=== PATIENT | male | born 1950 | race African-American/Black ===

== ENCOUNTER → 2017-03-25 | Day surgery (SDC) | payer OTHER, BC ==
[~2017-03-25] MED LIST: PICC LINE 8 ML FLUSH PROTOCOL IVPUSH PRN
== END | disposition home or self-care (01) ==
LOC: JRADIR 10:19
PROVIDERS: ATTEND Surgery Vascular Surgery
PROC: 02HV33Z Insertion of Infusion Device into Superior Vena Cava, Percutaneous Approach (ICD-10-PCS; principal; 2017-03-25)
PROC: B518ZZA Fluoroscopy of Superior Vena Cava, Guidance (ICD-10-PCS; 2017-03-25)
DX: M86.9 Osteomyelitis, unspecified (principal)
CPT/HCPCS: 36569; 77001-TC; C1751

== ENCOUNTER 2018-02-09 19:49 | Inpatient (IN) | payer OTHER, BC ==
--- NOTE | 2018-02-09 20:23 | PDOC ---
Rapid Medical Evaluation Time Seen by Provider: 02/09/18 20:18 Medical Evaluation: Allergies Allergy/AdvReac Type Severity Reaction Status Date / Time No Known Drug Allergies Allergy Verified 12/12/16 17:04 I have performed a brief in-person evaluation of this patient. The patient presents with a chief complaint of: doesn't remember falling but was very disoriented and has a bruise on the top of his head and his right shoulder hurts. Pt states this has happened before when he has been "exhausted ". disorientation/fall happened around 1pm (7 hours ago). admits he was running out of insulin so he has been "stretching it out". Pertinent physical exam findings: abrasion to top of scalp. no facial drooping. No slurred speech. Patient is sluggish to respond and to walk I have ordered the following: labs, Head Ct, UA/culture, EKG, CXR The patient will proceed to the ED for further evaluation.
[2018-02-09 20:24] VITALS: BMI 27.3
[2018-02-09 20:52] LABS: BASO % 0.8 % (0-2.0); EOS % 0.6 % (0-4.5); HEMATOCRIT 38.8 % (35.4-49); LYMPH % 14.6 % (8-40); MCH 29.3 pg (25.7-33.7); MCHC 33.4 g/dl (32.0-35.9); MEAN CELL VOLUME 87.7 fl (80-96); MEAN PLT VOLUME 8.4 fl (7.5-11.1); MONO % 7.8 % (3.8-10.2); NEUT % 76.2 % (42.8-82.8); PLATELET COUNT 274 K/MM3 (134-434); RBC 4.42 M/mm3 (4.00-5.60); RDW 13.4 % (11.9-15.9); WHITE BLOOD COUNT 4.6 K/mm3 (4.0-10.0)
[2018-02-09 21:25] LABS: ALBUMIN 3.6 g/dl (3.4-5.0); ANION GAP 6 (8-16); BILIRUBIN,TOTAL 0.8 mg/dL (0.2-1.0); BLOOD UREA NITROGEN 35 mg/dL (7-18); CALCIUM 8.9 mg/dL (8.5-10.1); CHLORIDE 96 mmol/L (98-107); CO2 30 mmol/L (21-32); CREATININE 1.3 mg/dL (0.7-1.3); GLUCOSE,RANDOM 157 mg/dL (74-106); POTASSIUM 4.2 mmol/L (3.5-5.1); SGOT/AST 49 U/L (15-37); SGPT/ALT 31 U/L (12-78); SODIUM 132 mmol/L (136-145); TOT PROT 7.1 g/dl (6.4-8.2)
[2018-02-09 21:39] LABS: ALK PHOS 92 U/L (45-117)
[2018-02-09 22:07] LABS: URINE APPEARANCE CLEAR; URINE BILIRUBIN NEGATIVE (<2.0 mg/dL); URINE BLOOD NEGATIVE (NEGATIVE); URINE COLOR YELLOW; URINE GLUCOSE (UA) 1+ (NEGATIVE); URINE KETONE TRACE (NEGATIVE); URINE LEUK ESTERASE NEGATIVE (NEGATIVE); URINE NITRITE NEGATIVE (NEGATIVE); URINE UROBILINOGEN NEGATIVE mg/dL (0.2-1.0)
[2018-02-09 22:08] LABS: URINE PROTEIN 1+ (NEGATIVE)
[2018-02-09 22:09] LABS: EPI CELLS RARE /HPF (FEW); URINE HYALINE CAST 1 /lpf; URINE MUCUS RARE
--- NOTE | 2018-02-09 22:51 | PDOC ---
History of Present Illness - General History Source: Patient <Tuan Valencia - Last Filed: 02/09/18 22:55> - General History Source: Patient Exam Limitations: No Limitations - History of Present Illness Initial Comments: 02/09/18 23:06 The patient is a 67-year-old male, with a significant past medical history of diabetes and hypertension, who presents to the ED with s/p syncopal episode. Patient believes that he has not eaten well and has not had enough fluids today. The patient states that he consequently just fainted. He denies any chest pain, headache, or shortness of breath prior to the incident. On exam, the patient complains of pain to the top of his head, pain to the top of his right shoulder, and pain to the palmar aspect of his right hand. The patient denies any fever, chills, nausea, vomiting, diarrhea, or abdominal pain. PCP: Dr. Laura Page <Leonora Kerr - Last Filed: 02/09/18 23:58> - General Chief Complaint: Syncope/Near Syncope Stated Complaint: HEAD INJURY Time Seen by Provider: 02/09/18 20:18 Past History - Past Medical History Cardiac Disorders: Yes (IRREGULAR HEARTBEAT) COPD: No Diabetes: Yes (IDDM (INSULIN PUMP)) HTN: Yes Hypercholesterolemia: Yes - Surgical History Cardiac Surgery: Yes (?ABLATION 2003) - Immunization History Immunization Up to Date: No - Suicide/Smoking/Psychosocial Hx Smoking History: Unknown if ever smoked Have you smoked in the past 12 months: No Hx Alcohol Use: Yes (VERY LITTLE) Drug/Substance Use Hx: No Substance Use Type: Alcohol <Tuan Valencia - Last Filed: 02/09/18 22:55> <Leonora Kerr - Last Filed: 02/09/18 23:58> - Past Medical History Allergies/Adverse Reactions: Allergies Allergy/AdvReac Type Severity Reaction Status Date / Time No Known Drug Allergies Allergy Verified 02/09/18 20:22 Home Medications: Ambulatory Orders Aspirin [ASA -] 325 mg PO DAILY 12/11/14 Benazepril/Hydrochlorothiazide [Benazepril-Hctz 20-12.5 mg Tab] 1 each PO DAILY 12/11/14 Gabapentin 300 mg PO DAILY 12/11/14 Labetalol HCl [Normodyne -] 200 mg PO DAILY 12/11/14 Testosterone [Androgel] 1.25 gm TD DAILY 12/11/14 Cholecalciferol (Vitamin D3) [Vitamin D] 50,000 unit PO ASDIR 07/10/16 Insulin Glulisine [Apidra] 0 unit SQ DAILY 07/10/16 Liraglutide [Victoza -] 1.2 mg SQ ASDIR 07/10/16 Review of Systems - Review of Systems Able to Perform ROS?: Yes Comments:: 02/09/18 23:09 CONSTITUTIONAL: Absent: fever, chills, diaphoresis, generalized weakness, malaise, loss of appetite HEENT: Absent: rhinorrhea, nasal congestion, throat pain, throat swelling, difficulty swallowing, mouth swelling, ear pain, eye pain, visual Changes CARDIOVASCULAR: Present: syncope Absent: chest pain, palpitations, irregular heart rate, lightheadedness, peripheral edema RESPIRATORY: Absent: cough, shortness of breath, dyspnea with exertion, orthopnea, wheezing, stridor, hemoptysis GASTROINTESTINAL: Absent: abdominal pain, abdominal distension, nausea, vomiting, diarrhea, constipation, melena, hematochezia GENITOURINARY: Absent: dysuria, frequency, urgency, hesitancy, hematuria, flank pain, genital pain MUSCULOSKELETAL: Present: pain to the top of his head, pain to the top of his right shoulder, and pain to the palmar aspect of his right hand. Absent: arthralgia, joint swelling SKIN: Absent: rash, itching, pallor HEMATOLOGIC/IMMUNOLOGIC: Absent: easy bleeding, easy bruising, lymphadenopathy, frequent infections ENDOCRINE: Absent: unexplained weight gain, unexplained weight loss, heat intolerance, cold intolerance NEUROLOGIC: Absent: headache, focal weakness or paresthesias, dizziness, unsteady gait, seizure, mental status changes, bladder or bowel incontinence PSYCHIATRIC: Absent: anxiety, depression, suicidal or homicidal ideation, hallucinations. <Leonora Kerr - Last Filed: 02/09/18 23:58> *Physical Exam - Vital Signs Last Vital Signs Temp Pulse Resp BP Pulse Ox 98.1 F 55 L 16 153/87 100 02/09/18 20:23 02/09/18 20:23 02/09/18 20:23 02/09/18 20:23 02/09/18 20:23 <Tuan Valencia - Last Filed: 02/09/18 22:55> - Vital Signs Last Vital Signs Temp Pulse Resp BP Pulse Ox 98.1 F 55 L 16 153/87 100 02/09/18 20:23 02/09/18 20:23 02/09/18 20:23 02/09/18 20:23 02/09/18 20:23 - Physical Exam Comments: 02/09/18 23:11 GENERAL: Well developed, well nourished. Awake and alert. No acute distress. HEENT: PERRLA, EOMI. No conjunctival pallor. Sclera are non-icteric. Moist mucous membranes. Oropharynx is clear. NECK: Supple. Full ROM. No JVD. Carotid pulses 2+ and symmetric, without bruits. No thyromegaly. No lymphadenopathy. CARDIOVASCULAR: Regular rate and rhythm. No murmurs, rubs, or gallops. Distal pulses are 2+ and symmetric. PULMONARY: No evidence of respiratory distress. Lungs clear to auscultation bilaterally. No wheezing, rales or rhonchi. ABDOMINAL: Soft. Non-tender. Non-distended. No rebound or guarding. No organomegaly. Normoactive bowel sounds. MUSCULOSKELETAL (+)Tenderness to the acromioclavicular joint region of the right shoulder. No CVA tenderness. EXTREMITIES: No cyanosis. No clubbing. No edema. No calf tenderness. SKIN: (+)Abrasion to top of his head, Abrasion to the palmar aspect of the right hand , just above the mcp joint of the 4th and 5th digits. Warm and dry. Normal capillary refill. No jaundice. NEUROLOGICAL: Alert, awake, appropriate. PSYCHIATRIC: Cooperative. Good eye contact. Appropriate mood and affect. <Leonora Kerr - Last Filed: 02/09/18 23:58> ED Treatment Course - LABORATORY CBC & Chemistry Diagram: 02/09/18 20:42 02/09/18 20:42 - ADDITIONAL ORDERS Additional order review: Laboratory Results 02/09/18 02/09/18 22:02 20:42 Sodium 132 L Potassium 4.2 Chloride 96 L Carbon Dioxide 30 Anion Gap 6 L BUN 35 H Creatinine 1.3 Creat Clearance w eGFR 55.40 Random Glucose 157 H Calcium 8.9 Total Bilirubin 0.8 AST 49 H D ALT 31 D Alkaline Phosphatase 92 Creatine Kinase 1200 H Troponin I < 0.02 Total Protein 7.1 Albumin 3.6 Urine Color Yellow Urine Appearance Clear Urine pH 5.0 Ur Specific [place] 1.018 Urine Protein 1+ H Urine Glucose (UA) 1+ H Urine Ketones Trace H Urine Blood Negative Urine Nitrite Negative Urine Bilirubin Negative Urine Urobilinogen Negative Ur Leukocyte Esterase Negative Urine WBC (Auto) 1 Urine RBC (Auto) <1 Ur Epithelial Cells Rare Hyaline Casts 1 Urine Mucus Rare 02/09/18 20:42 RBC 4.42 MCV 87.7 MCHC 33.4 RDW 13.4 MPV 8.4 Neutrophils % 76.2 D Lymphocytes % 14.6 D Monocytes % 7.8 Eosinophils % 0.6 D Basophils % 0.8 - RADIOLOGY Radiology Studies Ordered: Category Date Time Status SHOULDER-RIGHT [RAD] Stat Radiology 02/09/18 22:16 Taken <Tuan Valencia - Last Filed: 02/09/18 22:55> - LABORATORY CBC & Chemistry Diagram: 02/09/18 20:42 02/09/18 20:42 - ADDITIONAL ORDERS Additional order review: Laboratory Results 02/09/18 02/09/18 22:02 20:42 Sodium 132 L Potassium 4.2 Chloride 96 L Carbon Dioxide 30 Anion Gap 6 L BUN 35 H Creatinine 1.3 Creat Clearance w eGFR 55.40 Random Glucose 157 H Calcium 8.9 Total Bilirubin 0.8 AST 49 H D ALT 31 D Alkaline Phosphatase 92 Creatine Kinase 1200 H Creatine Kinase Index 1.6 CK-MB (CK-2) 19.361 H Troponin I < 0.02 Total Protein 7.1 Albumin 3.6 Urine Color Yellow Urine Appearance Clear Urine pH 5.0 Ur Specific [place] 1.018 Urine Protein 1+ H Urine Glucose (UA) 1+ H Urine Ketones Trace H Urine Blood Negative Urine Nitrite Negative Urine Bilirubin Negative Urine Urobilinogen Negative Ur Leukocyte Esterase Negative Urine WBC (Auto) 1 Urine RBC (Auto) <1 Ur Epithelial Cells Rare Hyaline Casts 1 Urine Mucus Rare 02/09/18 20:42 RBC 4.42 MCV 87.7 MCHC 33.4 RDW 13.4 MPV 8.4 Neutrophils % 76.2 D Lymphocytes % 14.6 D Monocytes % 7.8 Eosinophils % 0.6 D Basophils % 0.8 - RADIOLOGY Radiology Studies Ordered: 02/09/18 23:[address] was reviewed by Dr. Valencia and over-read by Radiology. Impression: No definite interval change from 10/21/[address] No acute intracranial hemorrhage, mass effects, hydrocephalus or calvarial fracture. 02/09/18 23:57 Chest X-Ray and Right Shoulder X-Ray was reviewed by Dr. Valencia and over- read by Radiology. Impression: 1. No evidence of acute infiltrate, pleural effusion or pneumothorax. 2. No evidence of acute fracture or dislocation in the right shoulder. Right acromioclavicular and glenohumeral arthropathy. <Leonora Kerr - Last Filed: 02/09/18 23:58> *DC/Admit/Observation/Transfer - Discharge Dispostion Admit: Yes <Tuan Valencia - Last Filed: 02/09/18 22:55> - Attestations Scribe Attestion: 02/09/18 23:13 Documentation prepared by Leonora Kerr, acting as medical records clerk for Tuan Valencia MD. <Leonora Kerr - Last Filed: 02/09/18 23:58> Diagnosis at time of Disposition: Abrasions of multiple sites Syncope Qualifiers: Syncope type: unspecified Qualified Code(s): R55 - Syncope and collapse AC separation Qualifiers: Encounter type: initial encounter Laterality: right Qualified Code(s): S43.101A - Unspecified dislocation of right acromioclavicular joint, initial encounter - Discharge Dispostion Condition at time of disposition: Stable
[2018-02-09] MEDS ORDERED: TETANUS AND DIPHTHERIA TOXOID 0.5 ML DISP.SYRIN IM ONE (23:17)
[2018-02-09] MEDS: SODIUM CHLORIDE 1,000 ML IV SCH (23:30)
--- NOTE | 2018-02-10 04:44 | HP ---
CHIEF COMPLAINT: SYNCOPE PCP: Laura Suresh HISTORY OF PRESENT ILLNESS: This is a 67 year old male with a past medical history of irreg heart beat, DM, HTN, HLD, syncope who presented to the ED after apparant syncopal episode. Pt report that he has been running nonstop to take care of "things" for the past 2 days. He states that earlier today he woke up on the ground with an abrasion to the top of his head and right hand as well as right shoulder pain. He also reports that he has not been eating or drinking well for the past 2 days and has not taken his premeal insulin. Upon exam pt reports feeling much better. ER course was notable for: (1) Na 132 (2) (3) Recent Travel: pt denies PAST MEDICAL HISTORY: irreg heart beat s/p ablation 2003, DM, HTN, HLD, syncope PAST SURGICAL HISTORY: cardiac ablation 2003 Social History: Smoking: pt denies Alcohol: rarely Drugs: pt denies Family History: mother age 75, mult CVAs beginning age 65 father age 74, prostate CA one brother suffers effects of agent orange and has PTSD Allergies No Known Drug Allergies Allergy (Verified 02/09/18 20:22) HOME MEDICATIONS: 3 Medication Instructions Recorded Aspirin [ASA -] 325 mg PO DAILY 12/11/14 Benazepril/Hydrochlorothiazide 1 each PO DAILY 12/11/14 [Benazepril-Hctz 20-12.5 mg Tab] Gabapentin 300 mg PO DAILY 12/11/14 Labetalol HCl [Normodyne -] 200 mg PO DAILY 12/11/14 Testosterone [Androgel] 1.25 gm TD DAILY 12/11/14 Cholecalciferol (Vitamin D3) 50,000 unit PO ASDIR 07/10/16 [Vitamin D] Insulin Glulisine [Apidra] 0 unit SQ DAILY 07/10/16 Liraglutide [Victoza -] 1.2 mg SQ ASDIR 07/10/16 REVIEW OF SYSTEMS CONSTITUTIONAL: Absent: fever, chills, diaphoresis, generalized weakness, malaise, loss of appetite, weight change HEENT: Absent: rhinorrhea, nasal congestion, throat pain, throat swelling, difficulty swallowing, mouth swelling, ear pain, eye pain, visual changes CARDIOVASCULAR: Present: syncope Absent: chest pain, palpitations, irregular heart rate, lightheadedness, peripheral edema RESPIRATORY: Absent: cough, shortness of breath, dyspnea with exertion, orthopnea, wheezing, stridor, hemoptysis GASTROINTESTINAL: Absent: abdominal pain, abdominal distension, nausea, vomiting, diarrhea, constipation, melena, hematochezia GENITOURINARY: Absent: dysuria, frequency, urgency, hesitancy, hematuria, flank pain, genital pain MUSCULOSKELETAL: Absent: myalgia, arthralgia, joint swelling, back pain, neck pain SKIN: Absent: rash, itching, pallor HEMATOLOGIC/IMMUNOLOGIC: Absent: easy bleeding, easy bruising, lymphadenopathy, frequent infections ENDOCRINE: Absent: unexplained weight gain, unexplained weight loss, heat intolerance, cold intolerance NEUROLOGIC: Absent: headache, focal weakness or paresthesias, dizziness, unsteady gait, seizure, mental status changes, bladder or bowel incontinence PSYCHIATRIC: Absent: anxiety, depression, suicidal or homicidal ideation, hallucinations. PHYSICAL EXAMINATION Vital Signs - 24 hr 3 02/09/18 20:23 Temperature 98.1 F Pulse Rate 55 L Respiratory 16 Rate Blood Pressure 153/87 O2 Sat by Pulse 100 Oximetry (%) GENERAL: Awake, alert, and fully oriented, in no acute distress. HEAD: Normal with no signs of trauma. EYES: Pupils equal, round and reactive to light, extraocular movements intact, sclera anicteric, conjunctiva clear. No lid lag. EARS, NOSE, THROAT: Ears normal, nares patent, oropharynx clear without exudates. Moist mucous membranes. NECK: Normal range of motion, supple without lymphadenopathy, JVD, or masses. LUNGS: Breath sounds equal, clear to auscultation bilaterally. No wheezes, and no crackles. No accessory muscle use. HEART: Regular rate and rhythm, normal S1 and S2 without murmur, rub or gallop. ABDOMEN: Soft, nontender, not distended, normoactive bowel sounds, no guarding, no rebound, no masses. No hepatomegaly or splenomegaly. MUSCULOSKELETAL: Normal range of motion at all joints except right shoulder. No bony deformities or tenderness. No CVA tenderness. decreased ROM right shoulder due to pain, + tenderness on palpation AC joint UPPER EXTREMITIES: 2+ pulses, warm, well-perfused. No cyanosis. No clubbing. No peripheral edema. LOWER EXTREMITIES: 2+ pulses, warm, well-perfused. No calf tenderness. No peripheral edema. NEUROLOGICAL: Cranial nerves II-XII intact. Normal speech. Normal gait. PSYCHIATRIC: Cooperative. Good eye contact. Appropriate mood and affect. SKIN: Warm, dry, normal turgor, no rashes or lesions noted, normal capillary refill. abrasion to top of head, left hand Laboratory Results - last 24 hr 3 02/09/18 02/09/18 02/09/18 20:42 20:42 22:02 WBC 4.6 RBC 4.42 Hgb 13.0 Hct 38.8 MCV 87.7 MCH 29.3 MCHC 33.4 RDW 13.4 Plt Count 274 MPV 8.4 Neutrophils % 76.2 D Lymphocytes % 14.6 D Monocytes % 7.8 Eosinophils % 0.6 D Basophils % 0.8 Sodium 132 L Potassium 4.2 Chloride 96 L Carbon Dioxide 30 Anion Gap 6 L BUN 35 H Creatinine 1.3 Creat Clearance w eGFR 55.40 Random Glucose 157 H Calcium 8.9 Total Bilirubin 0.8 AST 49 H D ALT 31 D Alkaline Phosphatase 92 Creatine Kinase 1200 H Creatine Kinase Index 1.6 CK-MB (CK-2) 19.361 H Troponin I < 0.02 Total Protein 7.1 Albumin 3.6 Urine Color Yellow Urine Appearance Clear Urine pH 5.0 Ur Specific [place] 1.018 Urine Protein 1+ H Urine Glucose (UA) 1+ H Urine Ketones Trace H Urine Blood Negative Urine Nitrite Negative Urine Bilirubin Negative Urine Urobilinogen Negative Ur Leukocyte Esterase Negative Urine WBC (Auto) 1 Urine RBC (Auto) <1 Ur Epithelial Cells Rare Hyaline Casts 1 Urine Mucus Rare ECG sinus rhythm vs possible ectopic atrial rhythm vent rate 75, QTC 451 P wave inverted NO acute ST/T wave changes Radiology Reports Shoulder, Right; Chest, portable Impression: 1. No evidence of acute infiltrate, pleural effusion or pneumothorax. 2. No evidence of acute fracture or dislocation in the right shoulder. Right acromioclavicular and glenohumeral arthropathy. Reported By: Herbie Harris DO 02/09/[address] head Impression: No definite interval change from 10/21/[address] No acute intracranial hemorrhage, mass effects , hydrocephalus or calvarial fracture. Reported By: Herbie Harris DO 02/09/18 3266 ASSESSMENT/PLAN: 67yM with PMH irreg heart beat s/p ablation 2004, DM, HTN, HLD, syncope presented to the ED s/p apparent syncope. Syncope - trend troponin r/o cardiac ischemia - monitor on tele - CT head without changes hyponatremia - likely due to HCTZ, will hold same - repeat BMP in am HTN/HLD - cont home medications except HCTZ DM with neuropathy - cont insulin pump basal rate - pt receives 6u apidra with meals and then sliding scale on top; same ordered. - BGM AC/HS - pt states he ran out of his victoza and gabapentin. Will restart victoza at 0.6mg daily x 1 week then titrate up to 1.2mg DVT PPX - heparin deferred as anticipated LOS <48h. reassess if stays longer - encourage ambulation FEN - NS @ 100cc/hr - BMP in am - diabetic diet as tolerated. Dispo: Pt admitted to tele obs. Visit type - Emergency Visit Emergency Visit: Yes ED Registration Date: 02/09/18 Care time: The patient presented to the Emergency Department on the above date and was hospitalized for further evaluation of their emergent condition. - New Patient This patient is new to me today: Yes Date on this admission: 02/10/18 - Critical Care Critical Care patient: No Hospitalist Screening - Colonoscopy Questionnaire Colonoscopy Questionnaire: Colonoscopy Questionnaire - Patient: 50 - 75 years old and never had a screening colonoscopy: Unknown History of colon or rectal polyps, or CA: No History of IBD, Crohn's disease or UC: No History of abdominal radiation therapy as a child: No - Relative: 1 with colon or rectal CA, or polyps at age 60 or younger: No Colon or rectal CA diagnosed at age 45 or younger: No Multiple relatives with colon or rectal CA: No - Outcome: Screening Result: Negative Screen
[2018-02-10] MEDS ORDERED: INSULIN SLIDING SCALE (NOVOLOG) 1 VIAL SQ SCH (07:00)
[2018-02-10] MEDS ORDERED: GABAPENTIN 300 MG CAPSULE (FP) PO SCH (10:00)
[2018-02-10] MEDS ORDERED: HYDROCHLOROTHIAZIDE 12.5 MG CAPSULE (FP) PO SCH (10:00)
[2018-02-10] MEDS ORDERED: LIRAGLUTIDE 0.6 MG/0.1 ML PEN.INJCTR SQ SCH (10:00)
[2018-02-10 10:25] LABS: BASO % 0.5 % (0-2.0); EOS % 0.8 % (0-4.5); HEMATOCRIT 37.9 % (35.4-49); HEMOGLOBIN 12.6 GM/dL (11.7-16.9); LYMPH % 12.8 % (8-40); MCH 29.1 pg (25.7-33.7); MCHC 33.2 g/dl (32.0-35.9); MEAN CELL VOLUME 87.5 fl (80-96); MEAN PLT VOLUME 8.4 fl (7.5-11.1); MONO % 17.2 % (3.8-10.2); NEUT % 68.7 % (42.8-82.8); PLATELET COUNT 290 K/MM3 (134-434); RBC 4.33 M/mm3 (4.00-5.60); RDW 13.4 % (11.9-15.9); WHITE BLOOD COUNT 6.3 K/mm3 (4.0-10.0)
[2018-02-10] MEDS: LIRAGLUTIDE 0.6 MG/0.1 ML PEN.INJCTR SQ SCH (10:37)
[2018-02-10] MEDS: LABETALOL HCL 200 MG TABLET (FP) PO SCH (10:52)
[2018-02-10] MEDS: ASPIRIN 325 MG TABLET PO SCH (10:52)
[2018-02-10] MEDS: LISINOPRIL 20 MG TABLET (FP) PO SCH (10:52)
[2018-02-10] MEDS: INSULIN SLIDING SCALE (NOVOLOG) 1 VIAL SQ SCH ×4 (11:02→22:58)
[2018-02-10] MEDS: INSULIN (NOVOLOG) ASPART 100 UNITS/ML 10ML VIAL SQ SCH ×3 (11:02→18:43)
--- NOTE | 2018-02-10 11:20 | EKG ---
Test Reason : Blood Pressure : / mmHG Vent. Rate : 075 BPM Atrial Rate : 075 BPM P-R Int : 248 ms QRS Dur : 096 ms QT Int : 404 ms P-R-T Axes : 264 001 037 degrees QTc Int : 451 ms UNUSUAL P AXIS, POSSIBLE ECTOPIC ATRIAL RHYTHM CANNOT RULE OUT ANTERIOR INFARCT , AGE UNDETERMINED ABNORMAL ECG WHEN COMPARED WITH ECG OF 02-NOV-2016 06:04, NO SIGNIFICANT CHANGE WAS FOUND Confirmed by JAMES BUSH, LUZMARIA ([id number]) on 02/10/2018 11:20:27 AM Referred By: EMILY Confirmed By:LUZMARIA RAMIREZ MD
[2018-02-10 11:47] LABS: ANION GAP 12 (8-16); BLOOD UREA NITROGEN 32 mg/dL (7-18); CHLORIDE 101 mmol/L (98-107); CO2 24 mmol/L (21-32); CREATININE 1.2 mg/dL (0.7-1.3); GLUCOSE,RANDOM 192 mg/dL (74-106); MAGNESIUM 2.4 mg/dL (1.8-2.4); PHOSPHOROUS 3.3 mg/dL (2.5-4.9); POTASSIUM 4.2 mmol/L (3.5-5.1); SODIUM 137 mmol/L (136-145)
--- NOTE | 2018-02-10 12:09 | CON.CARD ---
Cardiology Consult (text) - Consultation Consultation Note: cc: syncope hpi: 67 m hx dm, htn, here with syncope. Pt is poor historian, confused with many details. Past few days pt has been eating and drinking less and not sleeping much. Then yesterday he awoke sitting in his chair with a bruise on his arm and head. Does not remember any details around event. No cp, sob, palps, dizzy, loc, pnd, orthopnea, le edema. Feeling well now. Pt reports having what sounds like cardiac cath in early , says no interventions were needed. pmh: per hpi psh: insulin pump social: no tob fam: no premature cad, scd ros: per hpi; no nvd, cough, nasal congestion, [place], vision changes, gib, hematuria, dysuria meds: Home Medications Medication Instructions Recorded Aspirin [ASA -] 325 mg PO DAILY 12/11/14 Benazepril/Hydrochlorothiazide 1 each PO DAILY 12/11/14 [Benazepril-Hctz 20-12.5 mg Tab] Gabapentin 300 mg PO DAILY 12/11/14 Labetalol HCl [Normodyne -] 200 mg PO DAILY 12/11/14 Testosterone [Androgel] 1.25 gm TD DAILY 12/11/14 Cholecalciferol (Vitamin D3) 50,000 unit PO ASDIR 07/10/16 [Vitamin D] Insulin Glulisine [Apidra] 0 unit SQ DAILY 07/10/16 Liraglutide [Victoza -] 1.2 mg SQ ASDIR 07/10/16 pe: Vital Signs Period Temp Pulse Resp BP Sys/Duron Pulse Ox Last 24 Hr 98.1 F 55-95 16-18 128-153/74-87 97-100 nad no jvd rrr s1s2 no mrg cta bl nl eff aaox3 no le e/e/c abd nt nd pos bs no jaundice diaphoreis pos dp pt no carotid bruits Laboratory Last Values WBC 6.3 K/mm3 (4.0-10.0) D 02/10/18 10:05 RBC 4.33 M/mm3 (4.00-5.60) 02/10/18 10:05 Hgb 12.6 GM/dL (11.7-16.9) 02/10/18 10:05 Hct 37.9 % (35.4-49) 02/10/18 10:05 MCV 87.5 fl (80-96) 02/10/18 10:05 MCH 29.1 pg (25.7-33.7) 02/10/18 10:05 MCHC 33.2 g/dl (32.0-35.9) 02/10/18 10:05 RDW 13.4 % (11.9-15.9) 02/10/18 10:05 Plt Count 290 K/MM3 (134-434) 02/10/18 10:05 MPV 8.4 fl (7.5-11.1) 02/10/18 10:05 Neutrophils % 68.7 % (42.8-82.8) 02/10/18 10:05 Lymphocytes % 12.8 % (8-40) 02/10/18 10:05 Monocytes % 17.2 % (3.8-10.2) H D 02/10/18 10:05 Eosinophils % 0.8 % (0-4.5) 02/10/18 10:05 Basophils % 0.5 % (0-2.0) 02/10/18 10:05 Sodium 137 mmol/L (136-145) 02/10/18 10:05 Potassium 4.2 mmol/L (3.5-5.1) 02/10/18 10:05 Chloride 101 mmol/L (98-107) 02/10/18 10:05 Carbon Dioxide 24 mmol/L (21-32) 02/10/18 10:05 Anion Gap 12 (8-16) 02/10/18 10:05 BUN 32 mg/dL (7-18) H 02/10/18 10:05 Creatinine 1.2 mg/dL (0.7-1.3) 02/10/18 10:05 Creat Clearance w eGFR 55.40 (>60) 02/09/18 20:42 Random Glucose 192 mg/dL (74-106) H D 02/10/18 10:05 Calcium 9.0 mg/dL (8.5-10.1) 02/10/18 10:05 Phosphorus 3.3 mg/dL (2.5-4.9) D 02/10/18 10:05 Magnesium 2.4 mg/dL (1.8-2.4) D 02/10/18 10:05 Total Bilirubin 0.8 mg/dL (0.2-1.0) 02/09/18 20:42 AST 49 U/L (15-37) H D 02/09/18 20:42 ALT 31 U/L (12-78) D 02/09/18 20:42 Alkaline Phosphatase 92 U/L (45-117) 02/09/18 20:42 Creatine Kinase 1184 IU/L (39-308) H 02/10/18 03:15 Creatine Kinase Index 1.6 % (0.0-5.0) 02/09/18 20:42 CK-MB (CK-2) 19.361 ng/mL (0.5-3.6) H 02/09/18 20:42 Troponin I < 0.02 ng/ml (0.00-0.05) 02/10/18 03:15 Total Protein 7.1 g/dl (6.4-8.2) 02/09/18 20:42 Albumin 3.6 g/dl (3.4-5.0) 02/09/18 20:42 Urine Color Yellow 02/09/18 22:02 Urine Appearance Clear 02/09/18 22:02 Urine pH 5.0 (5.0-8.0) 02/09/18 22:02 Ur Specific [place] 1.018 (1.001-1.035) 02/09/18 22:02 Urine Protein 1+ (NEGATIVE) H 02/09/18 22:02 Urine Glucose (UA) 1+ (NEGATIVE) H 02/09/18 22:02 Urine Ketones Trace (NEGATIVE) H 02/09/18 22:02 Urine Blood Negative (NEGATIVE) 02/09/18 22:02 Urine Nitrite Negative (NEGATIVE) 02/09/18 22:02 Urine Bilirubin Negative (<2.0 mg/dL) 02/09/18 22:02 Urine Urobilinogen Negative mg/dL (0.2-1.0) 02/09/18 22:02 Ur Leukocyte Esterase Negative (NEGATIVE) 02/09/18 22:02 Urine WBC (Auto) 1 /hpf (3-5) 02/09/18 22:02 Urine RBC (Auto) <1 /hpf (0-3) 02/09/18 22:02 Ur Epithelial Cells Rare /HPF (FEW) 02/09/18 22:02 Hyaline Casts 1 /lpf 02/09/18 22:02 Urine Mucus Rare 02/09/18 22:02 cxr: clear lungs ecg: sr vs ectopic atrial pacemaker, nl intervals, no ischemic changes, no sig change 2015 echo 07/2012: nl lv/rv, no sig valve path a/p: 67 m hx dm, htn, here with syncope. syncope: -pt has poor recollection of event -possibly related to poor po intake and lack of sleep -check echo, tele -no signs acs htn: -stable, cont home meds rhabdo/praveen: -cont ivfs
[2018-02-10] MEDS ORDERED: HEMOQUE TEST 1 EACH EACH ONE (13:12)
[2018-02-10] MEDS: GABAPENTIN 300 MG CAPSULE (FP) PO SCH (23:19)
[2018-02-10] MEDS: SODIUM CHLORIDE 1,000 ML IV SCH (23:19)
[2018-02-11] MEDS: INSULIN SLIDING SCALE (NOVOLOG) 1 VIAL SQ SCH ×4 (06:15→23:10)
[2018-02-11] MEDS: INSULIN (NOVOLOG) ASPART 100 UNITS/ML 10ML VIAL SQ SCH ×3 (06:15→18:10)
[2018-02-11 06:44] LABS: ANION GAP 5 (8-16); BLOOD UREA NITROGEN 31 mg/dL (7-18); CALCIUM 8.5 mg/dL (8.5-10.1); CHLORIDE 106 mmol/L (98-107); CO2 29 mmol/L (21-32); GLUCOSE,RANDOM 56 mg/dL (74-106); POTASSIUM 3.8 mmol/L (3.5-5.1); SODIUM 140 mmol/L (136-145)
[2018-02-11 07:00] LABS: CREATININE 1.5 mg/dL (0.7-1.3)
[2018-02-11] MEDS ORDERED: PT OWN MED DRAWER 7, Y5N ONE (09:51)
[2018-02-11] MEDS: LISINOPRIL 20 MG TABLET (FP) PO SCH (10:08)
[2018-02-11] MEDS: LABETALOL HCL 200 MG TABLET (FP) PO SCH (10:09)
[2018-02-11] MEDS: ASPIRIN 325 MG TABLET PO SCH (10:09)
[2018-02-11] MEDS: LIRAGLUTIDE 0.6 MG/0.1 ML PEN.INJCTR SQ SCH (10:10)
[2018-02-11] MEDS: SODIUM CHLORIDE 1,000 ML IV SCH (10:12)
--- NOTE | 2018-02-11 10:42 | PN ---
Progress Note (short form) - Note Progress Note: s: no cp sob palps dizzy o: Vital Signs Period Temp Pulse Resp BP Sys/Duron Pulse Ox Last 24 Hr 97.8 F-98.4 F 72-89 16-20 96-135/54-76 98-99 nad no jvd rrr s1s2 no mrg cta bl nl eff aaox3 no le e/e/c abd nt nd pos bs no jaundice diaphoreis Current Medications Generic Name Dose Route Start Last Admin Trade Name Ramiro PRN Reason Stop Dose Admin Aspirin 325 mg 02/10/18 10:00 02/11/18 10:09 Asa - PO 325 mg DAILY RAMIN Administration Gabapentin 300 mg 02/10/18 22:00 02/10/18 23:19 Neurontin - PO 300 mg HS RAMIN Administration Sodium Chloride 1,000 mls @ 125 mls/hr 02/11/18 10:01 02/11/18 10:12 Normal Saline - IV 125 mls/hr ASDIR RAMIN Administration Insulin Aspart 1 vial 02/10/18 22:00 02/10/18 22:58 Novolog Vial Sliding Scale - SQ Not Given HS [facility] Protocol Insulin Aspart 6 units 02/10/18 07:00 02/11/18 06:15 Novolog Vial SQ Not Given TIDAC RAMIN Insulin Aspart 1 vial 02/10/18 07:00 02/11/18 06:15 Novolog Vial Sliding Scale - SQ Not Given TIDAC RAMIN Protocol Labetalol HCl 200 mg 02/10/18 10:00 02/11/18 10:09 Normodyne - PO 200 mg DAILY RAMIN Administration Liraglutide 0.6 mg 02/10/18 10:00 02/11/18 10:10 Victoza - SQ 0.6 mg DAILY RAMIN Administration Lisinopril 20 mg 02/10/18 10:00 02/11/18 10:08 Prinivil PO 20 mg DAILY RAMIN Administration CBC, BMP 02/10/18 10:05 02/11/18 05:10 cxr: clear lungs ecg: sr vs ectopic atrial pacemaker, nl intervals, no ischemic changes, no sig change 2016 echo 07/2012: nl lv/rv, no sig valve path Kamilla stress MPI 09/2013: no ischemia Kamilla stress MPI 07/2015: nl mpi, nl lvef echo 01/2018: nl lv, rv tds, no sig valve path, nl rvsp Echo 07/2015: normal LV/RV function, no sig valv abn Echo 02/2013: normal LV/RV function, no sig valv abn Echo 12/2008 ([place]): normal LV/RV function, no sig valv abn tele: sr Carotid Doppler 03/2013: no sig stenosis Carotid Doppler 07/2015: mild dz, no sig stenosis Cath 04/2004: normal cors, mildly reduced LVF EPS 04/2004: normal, no inducible VT holter 08/2015: benign study a/p: 67 m hx dm, htn, here with syncope. syncope: -pt has poor recollection of event -possibly related to poor po intake and lack of sleep -has hx of such events that was evaluated in past with EP study, cath, holter, echo that were unremarkable and sxs thought to be due to hypoglycemia. -check echo, tele -no signs acs htn: -stable, cont home meds rhabdo/praveen: -cont ivfs cardiac [place] stable, can dc tele
--- NOTE | 2018-02-11 13:03 | PN ---
Progress Note, Physician Chief Complaint: Events noted Appreciate Cardiology eval Telemetry uneventful No distress - Current Medication List Current Medications: Active Medications Aspirin (Asa -) 325 mg PO DAILY [facility] Last Admin: 02/11/18 10:09 Dose: 325 mg Gabapentin (Neurontin -) 300 mg PO HS [facility] Last Admin: 02/10/18 23:19 Dose: 300 mg Sodium Chloride (Normal Saline -) 1,000 mls @ 125 mls/hr IV ASDIR [facility] Last Admin: 02/11/18 10:12 Dose: 125 mls/hr Insulin Aspart (Novolog Vial Sliding Scale -) 1 vial SQ [facility] PRN Reason: Protocol Last Admin: 02/10/18 22:58 Dose: Not Given Insulin Aspart (Novolog Vial) 6 units SQ TIDAC [facility] Last Admin: 02/11/18 06:15 Dose: Not Given Insulin Aspart (Novolog Vial Sliding Scale -) 1 vial SQ TIDAC [facility] PRN Reason: Protocol Last Admin: 02/11/18 06:15 Dose: Not Given Labetalol HCl (Normodyne -) 200 mg PO DAILY [facility] Last Admin: 02/11/18 10:09 Dose: 200 mg Liraglutide (Victoza -) 0.6 mg SQ DAILY [facility] Last Admin: 02/11/18 10:10 Dose: 0.6 mg Lisinopril (Prinivil) 20 mg PO DAILY [facility] Last Admin: 02/11/18 10:08 Dose: 20 mg - Objective Vital Signs: Vital Signs Temperature 98.2 F 02/11/18 08:00 Pulse Rate 78 02/11/18 08:00 Respiratory Rate 20 02/11/18 08:00 Blood Pressure 157/96 02/11/18 08:00 O2 Sat by Pulse Oximetry (%) 99 02/10/18 21:22 Constitutional: Yes: No Distress Cardiovascular: Yes: Regular Rate and Rhythm Respiratory: Yes: CTA Bilaterally Gastrointestinal: Yes: Normal Bowel Sounds, Soft. No: Tenderness Edema: No Labs: CBC, BMP 02/10/18 10:05 02/11/18 05:10 Problem List - Problems (1) Rhabdomyolysis Code(s): M62.82 - RHABDOMYOLYSIS (2) Syncope Code(s): R55 - SYNCOPE AND COLLAPSE Qualifiers: Syncope type: unspecified Qualified Code(s): R55 - Syncope and collapse (3) Diabetes Code(s): E11.9 - TYPE 2 DIABETES MELLITUS WITHOUT COMPLICATIONS Assessment/Plan PLAN Increase rate of fluids pt has no muscle cramps or pain encourage po fluids continue with meds
[2018-02-11] MEDS: GABAPENTIN 300 MG CAPSULE (FP) PO SCH (21:10)
[2018-02-12] MEDS: INSULIN (NOVOLOG) ASPART 100 UNITS/ML 10ML VIAL SQ SCH ×3 (06:32→17:43)
[2018-02-12] MEDS: INSULIN SLIDING SCALE (NOVOLOG) 1 VIAL SQ SCH ×4 (06:32→21:33)
[2018-02-12 08:42] LABS: CHLORIDE 108 mmol/L (98-107); POTASSIUM 4.4 mmol/L (3.5-5.1); SODIUM 142 mmol/L (136-145)
[2018-02-12 09:12] LABS: ANION GAP 12 (8-16); BLOOD UREA NITROGEN 27 mg/dL (7-18); CALCIUM 8.1 mg/dL (8.5-10.1); CO2 22 mmol/L (21-32); GLUCOSE,RANDOM 158 mg/dL (74-106)
[2018-02-12] MEDS ORDERED: PT OWN MED DRAWER 7, Y5N ONE (10:16)
--- NOTE | 2018-02-12 10:53 | PN ---
Progress Note, Physician History of Present Illness: patient seen and examined. Chart reviewed Awake and comfortable patient subjectively feels better Drinking fluids denies chest pain Denies chest pain or shortness of breath or headache Feels less tired - Current Medication List Current Medications: Active Medications Aspirin (Asa -) 325 mg PO DAILY [facility] Last Admin: 02/11/18 10:09 Dose: 325 mg Gabapentin (Neurontin -) 300 mg PO HS [facility] Last Admin: 02/11/18 21:10 Dose: 300 mg Sodium Chloride (Normal Saline -) 1,000 mls @ 125 mls/hr IV ASDIR [facility] Last Admin: 02/11/18 10:12 Dose: 125 mls/hr Insulin Aspart (Novolog Vial Sliding Scale -) 1 vial SQ [facility] PRN Reason: Protocol Last Admin: 02/11/18 23:10 Dose: Not Given Insulin Aspart (Novolog Vial) 6 units SQ TIDAC [facility] Last Admin: 02/12/18 06:32 Dose: Not Given Insulin Aspart (Novolog Vial Sliding Scale -) 1 vial SQ TIDAC [facility] PRN Reason: Protocol Last Admin: 02/12/18 06:32 Dose: Not Given Labetalol HCl (Normodyne -) 200 mg PO DAILY [facility] Last Admin: 02/11/18 10:09 Dose: 200 mg Liraglutide (Victoza -) 0.6 mg SQ DAILY [facility] Last Admin: 02/11/18 10:10 Dose: 0.6 mg Lisinopril (Prinivil) 20 mg PO DAILY [facility] Last Admin: 02/11/18 10:08 Dose: 20 mg - Objective Vital Signs: Vital Signs Temperature 97.6 F 02/11/18 22:00 Pulse Rate 68 02/12/18 06:00 Respiratory Rate 20 02/12/18 06:00 Blood Pressure 151/81 02/12/18 06:00 O2 Sat by Pulse Oximetry (%) 100 02/11/18 21:00 Constitutional: Yes: No Distress Eyes: Yes: Conjunctiva Clear Neck: Yes: Supple Cardiovascular: Yes: Regular Rate and Rhythm Respiratory: Yes: CTA Bilaterally Gastrointestinal: Yes: Soft Edema: No Neurological: Yes: Alert Psychiatric: Yes: Alert Labs: CBC, BMP 02/10/18 10:05 02/12/18 06:49 Problem List - Problems (1) Rhabdomyolysis Code(s): M62.82 - RHABDOMYOLYSIS (2) Syncope Code(s): R55 - SYNCOPE AND COLLAPSE Qualifiers: Syncope type: unspecified Qualified Code(s): R55 - Syncope and collapse (3) Dehydration Code(s): E86.0 - DEHYDRATION (4) Diabetes Code(s): E11.9 - TYPE 2 DIABETES MELLITUS WITHOUT COMPLICATIONS Assessment/Plan clinically better. Medications reviewed CPK level--- elevated today Continue IV fluids Encouraged to drink fluids Ambulate Discontinue telemetry check CPK level in the morning If better--we will consider discharge tomorrow Patient in agreement discussed also with nursing staff.
[2018-02-12] MEDS: ASPIRIN 325 MG TABLET PO SCH (10:57)
[2018-02-12] MEDS: LISINOPRIL 20 MG TABLET (FP) PO SCH (10:57)
[2018-02-12] MEDS: LABETALOL HCL 200 MG TABLET (FP) PO SCH (10:57)
[2018-02-12] MEDS: LIRAGLUTIDE 0.6 MG/0.1 ML PEN.INJCTR SQ SCH (10:57)
[2018-02-12] MEDS: SODIUM CHLORIDE 1,000 ML IV SCH (10:58)
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
[2018-02-12] MEDS: GABAPENTIN 300 MG CAPSULE (FP) PO SCH (21:29)
[2018-02-13] MEDS: INSULIN SLIDING SCALE (NOVOLOG) 1 VIAL SQ SCH ×2 (06:41→12:01)
[2018-02-13] MEDS: INSULIN (NOVOLOG) ASPART 100 UNITS/ML 10ML VIAL SQ SCH ×2 (06:41→12:01)
[2018-02-13 07:31] VITALS: TEMP 98.6
[2018-02-13] MEDS ORDERED: PT OWN MED DRAWER 7, Y5N ONE (09:08)
[2018-02-13] MEDS: ASPIRIN 325 MG TABLET PO SCH (09:18)
[2018-02-13] MEDS: LABETALOL HCL 200 MG TABLET (FP) PO SCH (09:18)
[2018-02-13] MEDS: LISINOPRIL 20 MG TABLET (FP) PO SCH (09:18)
[2018-02-13] MEDS: LIRAGLUTIDE 0.6 MG/0.1 ML PEN.INJCTR SQ SCH (09:19)
[2018-02-13] MEDS: SODIUM CHLORIDE 1,000 ML IV SCH (09:19)
[2018-02-13 10:24] VITALS: BP 181/92; PULSE 89
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
== END 2018-02-13 13:29 | disposition home or self-care (01) | DRG 558 ==
LOC: JER 19:49 → JERBED 22:56 → J4W 02-10 20:56 → OBSVTOIN 02-11 13:00
PROVIDERS: ADMIT Internal Medicine; ATTEND Internal Medicine
DX: M62.82 Rhabdomyolysis (principal); E87.1 Hypo-osmolality and hyponatremia; N17.9 Acute kidney failure, unspecified; I10 Essential (primary) hypertension; M25.511 Pain in right shoulder; E11.9 Type 2 diabetes mellitus without complications; E78.00 Pure hypercholesterolemia, unspecified; R55 Syncope and collapse; E11.40 Type 2 diabetes mellitus with diabetic neuropathy, unspecified; E86.0 Dehydration; S60.511A Abrasion of right hand, initial encounter; S00.81XA Abrasion of other part of head, initial encounter; W18.30XA Fall on same level, unspecified, initial encounter; Y93.9 Activity, unspecified; Y92.009 Unspecified place in unspecified non-institutional (private) residence as the place of occurrence of the external cause
CPT/HCPCS: 36415; 70450-TC; 71046-TC-FY; 73030-TC-RT-FY; 80048; 80053; 81003; 81015; 82550; 82553; 82962; 83735; 84100; 84439; 84443; 84484; 85025; 87086; 93005; 93010; 93306-TC; 93880-TC; 99285-25; G0378; J7030

== ENCOUNTER 2018-04-04 17:41 | Emergency (ER) | payer OTHER, BC ==
[2018-04-04 17:54] VITALS: BP 144/70; PULSE 77; TEMP 98.5; BMI 26.2
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
== END 2018-04-04 18:20 | disposition home or self-care (01) ==
LOC: JER 17:41 → JERFT 17:41
DX: H11.32 Conjunctival hemorrhage, left eye (principal); Y04.2XXA Assault by strike against or bumped into by another person, initial encounter; Y93.89 Activity, other specified; Y92.89 Other specified places as the place of occurrence of the external cause; Y99.8 Other external cause status; Y07.02 Wife, perpetrator of maltreatment and neglect; E10.69 Type 1 diabetes mellitus with other specified complication; Z79.4 Long term (current) use of insulin; Z96.41 Presence of insulin pump (external) (internal); I10 Essential (primary) hypertension; H35.81 Retinal edema; Z79.82 Long term (current) use of aspirin
CPT/HCPCS: 99281-25

== ENCOUNTER 2018-10-20 10:58 | Day surgery (SDC) | payer OTHER, BC ==
[2018-10-19 10:09] VITALS: BMI 27.3
[~2018-10-20 10:58] MED LIST changes: +ACETAMINOPHEN 325 MG TABLET (FP) PO PRN; +CYCLOPENTOLATE HCL 1% OPHTH SOLN 2 ML BOTTLE OP SCH; -PICC LINE 8 ML FLUSH PROTOCOL IVPUSH PRN
[2018-10-20] MEDS ORDERED: OFLOXACIN 0.3% OPHTHALMIC SOLUTION 5 ML BOTTLE ONE (11:44)
[2018-10-20] MEDS ORDERED: TROPICAMIDE 1% OPHTH SOLN 15 ML BOTTLE ONE (11:44)
[2018-10-20] MEDS ORDERED: CYCLOPENTOLATE HCL 1% OPHTH SOLN 2 ML BOTTLE ONE (11:44)
[2018-10-20] MEDS ORDERED: PHENYLEPHRINE 2.5% OPHTH SOLN 15 ML BOTTLE ONE (11:44)
[2018-10-20] MEDS: TROPICAMIDE 1% OPHTH SOLN 15 ML BOTTLE OP SCH ×2 (11:50→12:06)
[2018-10-20] MEDS: PHENYLEPHRINE 2.5% OPHTH SOLN 15 ML BOTTLE OP SCH ×2 (11:50→12:06)
[2018-10-20] MEDS: KETOROLAC TROMETHAMINE 0.5% EYE DROP 1 DROP DROPS OP SCH ×2 (11:50→12:06)
[2018-10-20] MEDS: OFLOXACIN 0.3% OPHTHALMIC SOLUTION 5 ML BOTTLE OP SCH ×2 (11:50→12:06)
[2018-10-20] MEDS ORDERED: KETOROLAC TROMETHAMINE 0.5% EYE DROP 1 DROP DROPS ONE (12:02)
[2018-10-20] MEDS ORDERED: TETRACAINE 0.5% OPHTH SOLN 2 ML BOTTLE TP ONE (12:33)
[2018-10-20] MEDS ORDERED: POVIDONE-IODINE 5% OPHTHALMIC PREP 30 ML SOLUTION OS ONE (12:34)
[2018-10-20] MEDS ORDERED: BSS (NA/CA/MG/K) BALANCED SALT SOLUTION OPHTH SOLN 15 ML BOTTLE OS ONE ×2 (12:42)
[2018-10-20] MEDS ORDERED: LIDOCAINE HCL 1% PRESERVATIVE FREE - 30ML VIAL IO ONE (12:42)
[2018-10-20] MEDS ORDERED: TRYPAN BLUE 0.5 ML DISP.SYRIN IO ONE (12:42)
[2018-10-20] MEDS ORDERED: CHONDROITIN SU A/HYALUR SOD 1 KIT IO ONE (12:42)
[2018-10-20] MEDS ORDERED: EPINEPHrine/PF 1 MG/1 ML (1:1,000) AMPULE SQ ONE (12:49)
[2018-10-20] MEDS ORDERED: EPINEPHrine/PF 1 MG/1 ML (1:1,000) AMPULE ONE (13:06)
[2018-10-20 13:52] VITALS: TEMP 98
[2018-10-20 15:11] VITALS: BP 135/70; PULSE 86
--- NOTE | 2018-10-21 08:45 | OP ---
DATE OF OPERATION: 10/20/2018 SURGEON: Enoch Marin M.D. PREOPERATIVE DIAGNOSIS: Mature cataract, left eye. POSTOPERATIVE DIAGNOSIS: Mature cataract, left eye. OPERATION: Phacoemulsification of left cataract with capsular staining with Trypan blue and posterior chamber intraocular lens implantation, lens used [id number], 21.0 diopter power, serial No. [id number]. ANESTHESIA: Topical/ MAC. COMPLICATIONS: None. PROCEDURE: The patient was brought into the operating room and correctly identified along with the operative site as well as correct intraocular lens power. He was then prepped and draped in the usual sterile fashion including 5% Betadine solution in the conjunctival sac and an eyelid drape. An eyelid speculum was then placed into the left eye. A dense brown cataract was noted with a very poor red reflex. The pupil also measured approximately 5 mm. A paracentesis port was created, and intracameral lidocaine was given, approximately 0.5 mL of 1% preservative-free lidocaine. Beneath an air bubble, the capsule was then stained with Trypan blue. The Trypan blue was irrigated from the eye with the 0.5 mL of the preservative-free lidocaine 1%. Viscoelastic was injected to inflate the anterior chamber, and a temporal clear corneal wound was created. A continuous circular capsulorrhexis was made at the border of the pupil. The nucleus was then hydro-dissected with BSS, and using the phacoemulsification probe, a central groove was made within the nucleus. The nucleus was noted to be dense, and the phacoemulsification machine was changed to a dense lens setting. A cruciate groove was then created within the nucleus. However, attempts to crack the nucleus were not successful until the groove was deepened. First the nucleus was cracked in hemispheres, then in to quadrants. Each quadrant of the nuclues was then removed by also employing a horizontal chopping maneuver. Occasionally, Viscoat was placed in the anterior chamber to protect the cornea. Constant irrigation was also performed at the wound to prevent any corneal wound burn. The nucleus was finally removed quadrant by quadrant without any complication. There was no significant cortical material noted. Viscoelastic was injected to inflate the capsular bag. The lens was injected into the capsular bag. The viscoelastic was then irrigated and aspirated from the eye. The wounds were stromal hydrated and tested and found to be watertight. No suture was placed. At the end of the procedure, the intraocular lens must be well centered and covered by the anterior capsular border. Topical vancomycin and Betadine given, the eye patched and shielded, and the patient discharged from the operating room in stable condition. ENOCH MARIN M.D. [id number] MTDD
== END 2018-10-20 14:40 | disposition home or self-care (01) ==
LOC: JASU-SURG 10:58
PROVIDERS: ATTEND Ophthalmology
PROC: 08RK3JZ Replacement of Left Lens with Synthetic Substitute, Percutaneous Approach (ICD-10-PCS; principal; 2018-10-20 12:00)
DX: H25.89 Other age-related cataract (principal); H57.89 Other specified disorders of eye and adnexa
CPT/HCPCS: 82962

== ENCOUNTER 2018-12-22 08:55 | Day surgery (SDC) | payer OTHER, BC ==
[2018-12-20 13:12] VITALS: BMI 27.3
[~2018-12-22 08:55] MED LIST changes: +BSS (NA/CA/MG/K) BALANCED SALT SOLUTION OPHTH SOLN 15 ML BOTTLE OD ONE; +CHONDROITIN SU A/HYALUR SOD 1 KIT IO ONE; -CYCLOPENTOLATE HCL 1% OPHTH SOLN 2 ML BOTTLE OP SCH; +EPINEPHrine/PF 1 MG/1 ML (1:1,000) AMPULE SQ ONE; +LIDOCAINE HCL 1% PRESERVATIVE FREE - 30ML VIAL IO ONE; +POVIDONE-IODINE 5% OPHTHALMIC PREP 30 ML SOLUTION OD ONE; +TETRACAINE 0.5% OPHTH SOLN 2 ML BOTTLE OD ONE
[2018-12-22 09:14] VITALS: BP 118/69; PULSE 95; TEMP 97.8
[2018-12-22] MEDS ORDERED: KETOROLAC TROMETHAMINE 0.5% EYE DROP 1 DROP DROPS ONE (09:16)
[2018-12-22] MEDS ORDERED: CYCLOPENTOLATE HCL 1% OPHTH SOLN 2 ML BOTTLE ONE (09:16)
[2018-12-22] MEDS ORDERED: OFLOXACIN 0.3% OPHTHALMIC SOLUTION 5 ML BOTTLE ONE (09:16)
[2018-12-22] MEDS ORDERED: TROPICAMIDE 0.5% OPHTHALMIC SOLN 15 ML BOTTLE ONE (09:16)
[2018-12-22] MEDS: KETOROLAC TROMETHAMINE 0.5% EYE DROP 1 DROP DROPS OP SCH ×3 (09:35→10:00)
[2018-12-22] MEDS: PHENYLEPHRINE 2.5% OPHTH SOLN 15 ML BOTTLE OP SCH ×3 (09:35→10:00)
[2018-12-22] MEDS: CYCLOPENTOLATE HCL 1% OPHTH SOLN 2 ML BOTTLE OP SCH ×3 (09:35→10:00)
[2018-12-22] MEDS: OFLOXACIN 0.3% OPHTHALMIC SOLUTION 5 ML BOTTLE OP SCH ×3 (09:35→10:00)
[2018-12-22] MEDS: TROPICAMIDE 1% OPHTH SOLN 15 ML BOTTLE OP SCH ×3 (09:35→10:00)
[2018-12-22] MEDS ORDERED: MIDAZOLAM HCL 2 MG/2 ML SINGLE DOSE VIAL ONE (09:36)
[2018-12-22] MEDS ORDERED: INSULIN (NOVOLOG) ASPART 100 UNITS/ML 10ML VIAL SQ ONE ×2 (09:45→09:50)
[2018-12-22] MEDS ORDERED: INSULIN REGULAR HUMAN 100 UNITS/ML *VIAL SQ ONE (09:50)
== END 2018-12-22 11:26 | disposition home or self-care (01) ==
LOC: JASU-SURG 08:55
PROVIDERS: ATTEND Ophthalmology
DX: Z53.8 Procedure and treatment not carried out for other reasons (principal)
CPT/HCPCS: 82962

== ENCOUNTER 2019-03-28 22:08 | Inpatient (IN) | payer OTHER, BC ==
--- NOTE | 2019-03-28 22:35 | PDOC ---
History of Present Illness - General Stated Complaint: POSSIBLE STROKE History Source: Patient Exam Limitations: No Limitations - History of Present Illness Initial Comments: 03/28/19 22:29 68 yo M with a hx of HTN and DM (last A1C 14%) presents to the emergency department with word finding difficulty as well as transient LUE and LLE weakness. Per the patient, he has had difficulty expressing his thoughts for the past 2 days, endorsing difficulty producing speech. Per the patient, he had generalized weakness throughout the day and "passed out" today at approximately 5:30-6:00 pm and awoke at 7 pm with weakness in his left arm and left leg, prompting him to come to the ED. Since then, the weakness improved, but he has persistence of work finding difficulty. He endorses chills. Denies fever, chest pain, SOB, nausea, vomiting, abdominal pain, dysuria, hematuria, diarrhea, and hematochezia. Allergies: NKDA tPA Exclusion Checklist 0-3hr - Time Elapsed Date last known well: 03/27/19 Time last known well: 12:00 Elaspsed time: 2 Day(s) and 0 Hour(s) and 15 Minutes - Thrombolytic Therapy Candidate Is the patient eligible for Thrombolytic Therapy?: No - Exclusion Criteria 0-3hr SBP greater than 185 or DBP greater than 110mmHg despite tx: No Recent IC/spinal surgery,head trauma or stroke w/in last 3mo: No Hx of previous IC hemorrhage, IC neoplasm, AVM or aneurysm: No Active internal bleeding: No Blding diathesis(low plt ct, inc PTT,INR>1.7 or use of NOAC): No Symptoms suggest subarachnoid hemorrhage: No CT demonstrates multilobar infarct(>1/3 cerebral hemiphere): No Arterial puncture at noncompressible site in previous 7 days: No Blood glucose concentration less than 50mg/dL (2.7mmol/L): No - Relative Exclusion Criteria 0-3h 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 : No Patient/family refused: No Rapid improvement: No Stroke severity too mild: Yes Recent acute IN (w/in previous 3 months): No Seizure at onset with postictal residual neuro impairments: No Major surgery or serious trauma w/in previous 14 days: No Recent GI or hemorrhage (w/in previous 21 days): No - Ineligibility reason(s) Reasons No tPA given: Outside of window - delayed arrival NIH Stroke Scale - Last Known Well Date/Time & Onset Date Last Known Well: 03/27/19 Time Last Known Well: 12:00 - Initial Evaluation Level of consciousness: Alert Ask patient the month and their age: Answers both correctly Ask patient to open & close eyes; make fist and let go: Obeys both correctly Best gaze (horizontal eye movement): Normal Visual field testing: No visual field loss Facial paresis (Show teeth/raise eyebrows/close eyes tight): Normal symmetrical movement Motor Function: Left Arm: Normal Motor Function: Right Arm: Normal (extends arm 90 (or 45) degrees for 10 seconds without drift Motor Function: Left Leg: Normal (extends leg 30 degrees for 5 seconds without drift) Motor Function: Right Leg: Normal (extends leg 30 degrees for 5 seconds without drift) Limb Ataxia: No ataxia Sensory(Use pinprick test arms,legs,trunk,face/side to side): Normal Best language (Describe picture, name items, read sentences): Mild to moderate aphasia Dysarthria (read several words): Normal articulation Extinction and Inattention: No abnormality - Total Score NIH Stroke Scale Score: 1 Past History - Past Medical History Allergies/Adverse Reactions: Allergies Allergy/AdvReac Type Severity Reaction Status Date / Time No Known Drug Allergies Allergy Verified 10/20/18 11:26 Home Medications: Ambulatory Orders Aspirin [ASA -] 325 mg PO DAILY 12/11/14 Gabapentin 300 mg PO DAILY 12/11/14 Labetalol HCl [Normodyne -] 100 mg PO BID 12/11/14 Cholecalciferol (Vitamin D3) [Vitamin D3] 50,000 unit PO ASDIR 07/10/16 Liraglutide [Victoza -] 1.8 mg SQ DAILY 07/10/16 Aspirin/Acetaminophen/Caffeine [Excedrin Extra Strength Caplet] 1 each PO PRN Insulin Glargine,Hum.rec.anlog [Lantus] 32 unit SQ DAILY 10/19/18 Lisinopril [Prinivil] 20 mg PO HS 10/19/18 Rosuvastatin [Crestor -] 10 mg PO HS 10/19/18 traZODone HCL [Trazodone HCl] 50 mg PO HS 10/19/18 Metformin HCl [Glucophage] 500 mg PO BID 10/20/18 Anemia: No Asthma: No Cancer: No Cardiac Disorders: Yes (IRREGULAR HEARTBEAT) CVA: No COPD: No CHF: No Dementia: No Diabetes: Yes GI Disorders: No Disorders: No HTN: Yes Hypercholesterolemia: Yes Liver Disease: No Seizures: No Thyroid Disease: No - Surgical History Cardiac Surgery: Yes (?ABLATION 2003) - Immunization History Immunization Up to Date: No - Suicide/Smoking/Psychosocial Hx Smoking History: Never smoked Have you smoked in the past 12 months: No Hx Alcohol Use: Yes (VERY LITTLE) Drug/Substance Use Hx: No Substance Use Type: Alcohol Review of Systems - Review of Systems Able to Perform ROS?: Yes Is the patient limited Kiswahili proficient: No Constitutional: Yes: Weakness. No: Chills, Diaphoresis, Fever HEENTM: No: Blurred Vision, Recent change in vision, Ear Pain, Nose Pain, Throat Pain, Mouth Pain Respiratory: No: Cough, Shortness of Breath, SOB with Exertion, Hemoptysis Cardiac (ROS): No: Chest Pain, Lightheadedness, Palpitations, Syncope, Chest Tightness ABD/GI: No: Constipated, Diarrhea, Nausea, Rectal Bleeding, Vomiting, Tarry Stools : No: Burning, Dysuria, Hematuria, Incontinence Musculoskeletal: Yes: Muscle Weakness. No: Back Pain, Joint Pain, Neck Pain Integumentary: No: Bruising, Erythema, Rash Neurological: No: Headache, Numbness, Tingling, Tremors, Dizziness Psychiatric: No: Change in Appetite Endocrine: No: Unexplained Weight Gain Hematologic/Lymphatic: No: Anemia *Physical Exam - Physical Exam General Appearance: Yes: Nourished, Appropriately Dressed. No: Apparent Distress, Intoxicated HEENT: positive: EOMI, MIMI, Normal Voice, Symmetrical, Pharynx Normal, Hearing Grossly Normal. negative: Pale Conjunctivae, Scleral Icterus (R), Scleral Icterus (L), Muffled/Hoarse voice, Pharyngeal Erythema, Tonsillar Exudate, Tonsillar Erythema, Nasal Congestion, Rhinorrhea, Excessive drooling Neck: positive: Trachea midline, Supple. negative: Tender, Lymphadenopathy (R) , Lymphadenopathy (L), Tender lateral, Tender midline Respiratory/Chest: positive: Lungs Clear, Normal Breath Sounds. negative: Chest Tender, Respiratory Distress Cardiovascular: positive: Regular Rhythm, Regular Rate. negative: S1, S2, Systolic Murmur Gastrointestinal/Abdominal: positive: Normal Bowel Sounds, Flat, Soft. negative : Tender Lymphatic: negative: Adenopathy Musculoskeletal: positive: Normal Inspection. negative: CVA Tenderness, Vertebral Tenderness Extremity: positive: Normal Capillary Refill, Normal Inspection, Normal Range of Motion. negative: Tender Integumentary: positive: Normal Color, Dry, Warm Neurologic: positive: heel molder II-XII NML intact, Fully Oriented, Alert, Normal Mood/ Affect, Normal Response, Motor Strength 5/5. negative: EOM Palsy, Facial Droop , Numbness ED Treatment Course - LABORATORY CBC & Chemistry Diagram: 03/28/19 23:25 03/29/19 05:30 Medical Decision Making - Medical Decision Making 68 yo M with a hx of HTN and DM (last A1C 14%) presents to the emergency department with word finding difficulty as well as transient LUE and LLE weakness. Initial vitals: Initial Vital Signs Pulse Resp BP Pulse Ox 73 18 152/76 99 03/28/19 22:59 03/28/19 22:59 03/28/19 22:59 03/28/19 22:59 Work up: ddx: TIA given the transient weakness with nearly full resolution of motor weakness. Laboratory Tests 03/28/19 03/28/19 23:25 23:25 WBC 3.0 L RBC 4.68 Hgb 13.4 Hct 41.6 MCV 88.8 MCH 28.6 MCHC 32.2 RDW 12.6 Plt Count 218 D MPV 8.9 Absolute Neuts (auto) 2.2 Neutrophils % 72.8 Lymphocytes % 17.6 D Monocytes % 8.0 Eosinophils % 0.6 Basophils % 1.0 Nucleated RBC % 0 Sodium 130 L Potassium 4.6 Chloride 95 L Carbon Dioxide 28 Anion Gap 7 L BUN 41 H Creatinine 1.5 H Est GFR (CKD-EPI)AfAm 55.43 Est GFR (CKD-EPI)NonAf 47.82 Random Glucose 174 H Calcium 8.7 Total Bilirubin 1.0 AST 41 H ALT 41 Alkaline Phosphatase 78 Creatine Kinase 377 H Creatine Kinase Index 2.0 CK-MB (CK-2) 7.6 H Troponin I < 0.02 Total Protein 6.7 Albumin 3.6 Triglycerides 107 Total LDL Cholesterol 102 H HDL Cholesterol 61 H TSH 0.[address] was negative for acute processes. cxr was negative for acute processes. ekg has no significant changes from previous. Patient was signed out to Dr. Lau for eventual admissions. *DC/Admit/Observation/Transfer Diagnosis at time of Disposition: TIA (transient ischemic attack), Left arm weakness, Left leg weakness, Expressive aphasia - Discharge Dispostion Condition at time of disposition: Stable - Referrals - Patient Instructions - Post Discharge Activity
--- NOTE | 2019-03-28 23:20 | PDOC ---
Attending Attestation - Resident Resident Name: Rocky Arrieta - ED Attending Attestation I have performed the following: I have examined & evaluated the patient, The case was reviewed & discussed with the resident, I agree w/resident's findings & plan, Exceptions are as noted - HPI HPI: 03/28/19 23:14 68 M with h/o DM, HTN presenting to ED with word finding difficulty, as well as L side weakness. Pt states that over the past 2 days, he has been experiencing a hard time speaking, as he is unable to verbalize what he wants to say. Today, he went to sleep around 5:30pm for a nap. When he awoke at 7pm, he noticed weakness in his L arm and L leg, prompting him to come to the ED. The weakness has since improved, but pt states he still has word finding difficulty. Denies dizziness/AGGAWRAL. Denies CP/SOB. Denies numbness. - Physicial Exam PE: 03/28/19 23:20 GENERAL: Awake, alert, and fully oriented, in no acute distress. HEAD: No signs of trauma EYES: PERRLA, EOMI, sclera anicteric, conjunctiva clear ENT: Auricles normal inspection, hearing grossly normal, nares patent, oropharynx clear without exudates. Moist mucosa NECK: Nontender, no stepoffs, Normal ROM, supple, no lymphadenopathy, JVD, or masses LUNGS: Breath sounds equal, clear to auscultation bilaterally. No wheezes, and no crackles HEART: Regular rate and rhythm, normal S1 and S2, no murmurs, rubs or gallops ABDOMEN: Soft, nontender, normoactive bowel sounds. No guarding, no rebound. No masses EXTREMITIES: Normal range of motion, no edema. No clubbing or cyanosis. No cords, erythema, or tenderness NEUROLOGICAL: Cranial nerves II through XII intact. 5/5 strength and sensation in all extremities, Normal speech, normal gait, normal cerebellar function SKIN: Warm, Dry, normal turgor, no rashes or lesions noted. - Critical Care Time Total Critical Care Time: 60 Critical Care Statement: The care of this patient involved high complexity decision making to prevent further life threatening deterioration of the patient 's condition and/or to evaluate & treat vital organ system(s) failure or risk of failure. - Medical Decision Making 03/28/19 23:20 68 M with word finding difficulty and L side weakness, now resolved. Suspect CVA /TIA. NIHSS 1 currently. Last known normal 2 days ago, outside window for tPA. - CT head - Labs - Neuro consult NIH Stroke Scale - Last Known Well Date/Time & Onset Date Last Known Well: 03/26/19 Time Last Known Well: 12:00 - Initial Evaluation Level of consciousness: Alert Ask patient the month and their age: Answers both correctly Ask patient to open & close eyes; make fist and let go: Obeys both correctly Best gaze (horizontal eye movement): Normal Visual field testing: No visual field loss Facial paresis (Show teeth/raise eyebrows/close eyes tight): Normal symmetrical movement Motor Function: Left Arm: Normal Motor Function: Right Arm: Normal (extends arm 90 (or 45) degrees for 10 seconds without drift Motor Function: Left Leg: Normal (extends leg 30 degrees for 5 seconds without drift) Motor Function: Right Leg: Normal (extends leg 30 degrees for 5 seconds without drift) Limb Ataxia: No ataxia Sensory(Use pinprick test arms,legs,trunk,face/side to side): Normal Best language (Describe picture, name items, read sentences): Mild to moderate aphasia Dysarthria (read several words): Normal articulation Extinction and Inattention: No abnormality - Total Score NIH Stroke Scale Score: 1
[2019-03-28 23:39] LABS: EOS % 0.6 % (0-4.5); HEMATOCRIT 41.6 % (35.4-49); HEMOGLOBIN 13.4 GM/dL (11.7-16.9); LYMPH % 17.6 % (8-40); MCH 28.6 pg (25.7-33.7); MCHC 32.2 g/dl (32.0-35.9); MEAN CELL VOLUME 88.8 fl (80-96); MEAN PLT VOLUME 8.9 fl (7.5-11.1); NEUT % 72.8 % (42.8-82.8); PLATELET COUNT 218 K/MM3 (134-434); RBC 4.68 M/mm3 (4.00-5.60); RDW 12.6 % (11.9-15.9)
[2019-03-29 00:18] LABS: ALBUMIN 3.6 g/dl (3.4-5.0); ALK PHOS 78 U/L (45-117); ANION GAP 7 MMOL/L (8-16); BLOOD UREA NITROGEN 41 mg/dL (7-18); CALCIUM 8.7 mg/dL (8.5-10.1); CHLORIDE 95 mmol/L (98-107); CO2 28 mmol/L (21-32); CREATININE 1.5 mg/dL (0.55-1.3); GLUCOSE,RANDOM 174 mg/dL (74-106); HDL CHOLESTEROL 61 mg/dL (40-60); POTASSIUM 4.6 mmol/L (3.5-5.1); SGOT/AST 41 U/L (15-37); SGPT/ALT 41 U/L (13-61); SODIUM 130 mmol/L (136-145); TOT PROT 6.7 g/dl (6.4-8.2); TRIGLYCERIDES 107 mg/dL (0-150)
--- NOTE | 2019-03-29 00:32 | PDOC ---
*Physical Exam - Vital Signs Last Vital Signs Temp Pulse Resp BP Pulse Ox 73 18 152/76 99 03/28/19 22:59 03/28/19 22:59 03/28/19 22:59 03/28/19 22:59 ED Treatment Course - LABORATORY CBC & Chemistry Diagram: 03/28/19 23:25 03/28/19 23:25 - ADDITIONAL ORDERS Additional order review: Laboratory Results 03/28/19 23:25 Sodium 130 L Potassium 4.6 Chloride 95 L Carbon Dioxide 28 Anion Gap 7 L BUN 41 H Creatinine 1.5 H Est GFR (CKD-EPI)AfAm 55.43 Est GFR (CKD-EPI)NonAf 47.82 Random Glucose 174 H Calcium 8.7 Total Bilirubin 1.0 AST 41 H ALT 41 Alkaline Phosphatase 78 Creatine Kinase 377 H Troponin I < 0.02 Total Protein 6.7 Albumin 3.6 Triglycerides 107 Total LDL Cholesterol 102 H HDL Cholesterol 61 H TSH 0.54 D 03/28/19 23:25 RBC 4.68 MCV 88.8 MCHC 32.2 RDW 12.6 MPV 8.9 Neutrophils % 72.8 Lymphocytes % 17.6 D Monocytes % 8.0 Eosinophils % 0.6 Basophils % 1.0 Medical Decision Making - Medical Decision Making 03/29/19 00:00 Received sign out from resident Dr. Arrieta. In short, the pt is a 68 y/o male presenting with expressive aphasia, left arm weakness, and left leg weakness. Extremity weakness resolved but expressive aphasia has persisted. Dr. Gannon was consulted and will evaluate the pt in the morning. Requested MRI and MRA of brain. Ordered have been placed. 03/29/19 00:38 Telephone consultation with STERLING Rice. Verbally appraised of the pts HPI, ED course, and current plan of management. Will admit pt to tele/ stroke on inpatient status for Dr. Tosha Ramos. No additional ordered requested. *DC/Admit/Observation/Transfer Diagnosis at time of Disposition: TIA (transient ischemic attack), Left arm weakness, Left leg weakness, Expressive aphasia - Discharge Dispostion Condition at time of disposition: Stable Decision to Admit order: Yes - Referrals - Patient Instructions - Post Discharge Activity
--- NOTE | 2019-03-29 00:44 | HP ---
Admitting History and Physical - Primary Care Physician PCP: Laura Page - Admission Chief Complaint: Dysarthria, L- Sided Weakness History of Present Illness: This is a 68 y/o man with a PMHx of HTN, HLD, DM, Neuropathy. Who presents to the ED with dysarthria and left sided weakness x2 days, and a syncopal episode last evening. Patient reports having intermediate memory loss and insomnia. Patient reports having numbness to B/L hands and feet which he attributes to his neuropathy. Patient denies fever, chills, cough, SOB, CP, palpitations, AP, N/V/ D, constipation, dysuria History Source: Patient Limitations to Obtaining History: Clinical Condition - Past Medical History Cardiovascular: Yes: HTN, Hyperlipdemia Endocrine: Yes: Diabetes Mellitus - Smoking History Smoking history: Never smoked Have you smoked in the past 12 months: No - Alcohol/Substance Use Hx Alcohol Use: Yes (VERY LITTLE) - Social History ADL: Independent History of Recent Travel: No Home Medications - Allergies Allergies/Adverse Reactions: Allergies Allergy/AdvReac Type Severity Reaction Status Date / Time No Known Drug Allergies Allergy Verified 10/20/18 11:26 - Home Medications Home Medications: Ambulatory Orders Aspirin [ASA -] 325 mg PO DAILY 12/11/14 Gabapentin 300 mg PO DAILY 12/11/14 Labetalol HCl [Normodyne -] 100 mg PO BID 12/11/14 Cholecalciferol (Vitamin D3) [Vitamin D3] 50,000 unit PO ASDIR 07/10/16 Liraglutide [Victoza -] 1.8 mg SQ DAILY 07/10/16 Aspirin/Acetaminophen/Caffeine [Excedrin Extra Strength Caplet] 1 each PO PRN Insulin Glargine,Hum.rec.anlog [Lantus] 32 unit SQ DAILY 10/19/18 Lisinopril [Prinivil] 20 mg PO HS 10/19/18 Rosuvastatin [Crestor -] 10 mg PO HS 10/19/18 traZODone HCL [Trazodone HCl] 50 mg PO HS 10/19/18 Metformin HCl [Glucophage] 500 mg PO BID 10/20/18 Review of Systems - Review of Systems Constitutional: reports: Weakness Eyes: reports: No Symptoms HENT: reports: No Symptoms Neck: reports: No Symptoms Cardiovascular: reports: No Symptoms Respiratory: reports: No Symptoms Gastrointestinal: reports: No Symptoms Genitourinary: reports: No Symptoms Breasts: reports: No Symptoms Reported Musculoskeletal: reports: No Symptoms Integumentary: reports: No Symptoms Neurological: reports: Change in Speech, Weakness Endocrine: reports: No Symptoms Hematology/Lymphatic: reports: No Symptoms Psychiatric: reports: No Symptoms Physical Examination Vital Signs: Vital Signs Temperature Pulse Rate 73 03/28/19 22:59 Respiratory Rate 18 03/28/19 22:59 Blood Pressure 152/76 03/28/19 22:59 O2 Sat by Pulse Oximetry (%) 99 03/28/19 22:59 Constitutional: Yes: No Distress, Calm Eyes: Yes: WNL, Conjunctiva Clear, EOM Intact, PERRL HENT: Yes: WNL, Atraumatic, Normocephalic Neck: Yes: WNL, Supple, Trachea Midline Cardiovascular: Yes: Regular Rate and Rhythm, S1, S2 Respiratory: Yes: WNL, Regular, CTA Bilaterally Gastrointestinal: Yes: WNL, Normal Bowel Sounds, Soft Breast(s): Yes: WNL Musculoskeletal: Yes: WNL Edema: No Peripheral Pulses WNL: Yes Neurological: Yes: Alert, Oriented (x2). No: Dysarthria, Facial Droop, Weakness ...Motor Strength: WNL Psychiatric: Yes: WNL, Alert, Oriented Labs: CBC, BMP 03/28/19 23:25 03/28/19 23:25 Imaging - Results Chest X-ray: Image Reviewed Cat Scan: Image Reviewed Problem List - Problems (1) Syncope Assessment/Plan: Likely secondary to arrhythmia Continue cardiac monitoring Appreciate Cardiology consult Serial Enzymes Monitor CBC, BMP Code(s): R55 - SYNCOPE AND COLLAPSE Qualifiers: Syncope type: unspecified Qualified Code(s): R55 - Syncope and collapse (2) TIA (transient ischemic attack) Assessment/Plan: Head CT- neg ICH Appreciate Neurology consult MRI Brain-pending Continue cardiac monitoring Swallow Eval Monitor CBC, BMP Carotid Doppler in am Code(s): G45.9 - TRANSIENT CEREBRAL ISCHEMIC ATTACK, UNSPECIFIED (3) HTN (hypertension) Assessment/Plan: stable Continue home meds Code(s): I10 - ESSENTIAL (PRIMARY) HYPERTENSION (4) HLD (hyperlipidemia) Assessment/Plan: stable Continue home med Code(s): E78.5 - HYPERLIPIDEMIA, UNSPECIFIED (5) Diabetes Assessment/Plan: sub optimal BGMs ISS HgbA1c in am Code(s): E11.9 - TYPE 2 DIABETES MELLITUS WITHOUT COMPLICATIONS Assessment/Plan This is a 68 y/o man with a PMHx of: HTN, HLD, DM. Placed in Tele Observation for TIA. Syncope for further evaluation of their emergent condition. Plan: See Problem List FEN NS@42ml/hr Replete lytes prn Low Na, Diabetic Diet DVT ppx OOB SCDs Consider AC if LOS > 48hrs Dispo: Observation Visit type - Emergency Visit Emergency Visit: Yes ED Registration Date: 03/28/19 Care time: The patient presented to the Emergency Department on the above date and was hospitalized for further evaluation of their emergent condition. - New Patient This patient is new to me today: Yes Date on this admission: 03/29/19 - Critical Care Critical Care patient: No
[2019-03-29 03:16] LABS: URINE APPEARANCE CLEAR; URINE BILIRUBIN NEGATIVE (NEGATIVE); URINE COLOR YELLOW; URINE GLUCOSE (UA) 3+ (NEGATIVE); URINE KETONE NEGATIVE (NEGATIVE); URINE LEUK ESTERASE NEGATIVE (NEGATIVE); URINE NITRITE NEGATIVE (NEGATIVE); URINE PROTEIN NEGATIVE (NEGATIVE); URINE UROBILINOGEN 0.2 mg/dL (0.2-1.0)
[2019-03-29 05:32] VITALS: BMI 25.1
[2019-03-29 07:46] LABS: ALBUMIN 3.4 g/dl (3.4-5.0); ALK PHOS 74 U/L (45-117); ANION GAP 9 MMOL/L (8-16); BLOOD UREA NITROGEN 38 mg/dL (7-18); CHLORIDE 102 mmol/L (98-107); CO2 26 mmol/L (21-32); CREATININE 1.3 mg/dL (0.55-1.3); GLUCOSE,RANDOM 65 mg/dL (74-106); SGOT/AST 34 U/L (15-37); SGPT/ALT 35 U/L (13-61); SODIUM 137 mmol/L (136-145); TOT PROT 6.3 g/dl (6.4-8.2)
--- NOTE | 2019-03-29 09:14 | ECHO ---
Version: 1 Name: HUI DISLA Exam: Adult Echocardiogram Study Date: 03/29/2019, 7:20 AM Age: 68 Years MMode/2D Measurements & Calculations IVSd: 1.43 cm LVIDs: 2.08 cm LVIDd: 3.6 cm LVPWd: 1.20 cm LVOT diam: 2.00 cm Ao root diam: 3.2 cm LA dimension: 2.7 cm Doppler Measurements & Calculations MV E max prudencio: 44.1 cm/sec Med E/e': 4.5 MV A max prudencio: 148.0 cm/sec Med Peak E' Prudencio: 9.9 cm/sec MV E/A: 0.30 Lat E/e': 5.1 Lat Peak E' Prudencio: 8.7 cm/sec Ao max P.3 mmHg Ao V2 max: 208.0 cm/sec TR max prudencio: 171.0 cm/sec TR max P.7 mmHg Left Ventricle Normal LV function, mild concentric LVH, normal LV chanber sizes. Abnormal diastolic relaxation. Right Ventricle Normal RV size and function. Atria Normal left and right atrial size and function. Mitral Valve The mitral valve is grossly normal. Tricuspid Valve The tricuspid valve is not well visualized, but is grossly normal. There is trace tricuspid regurgit ation. Aortic Valve Fibrocalcific changes to the aortic valve without aortic stenosis. Pulmonic Valve The pulmonic valve is not well seen, but is grossly normal. Great Vessels The aortic root is normal size. Pericardium/Pleura There is no pericardial effusion. Summary Statements Normal LV function, mild concentric LVH, normal LV chanber sizes. Abnormal diastolic relaxation. Normal RV size and function. Normal left and right atrial size and function. Fibrocalcific changes to the aortic valve without aortic stenosis. Insufficient TR jet to calculate PASP. Estimated EF 65%. MD Mark Haddad 03/29/2019, 8:13 AM Ordering Physician: Patrizia Rice Performed By: Dana Leahy
--- NOTE | 2019-03-29 09:59 | CONSULT ---
Admitting History and Physical - Primary Care Physician PCP: Tosha Ramos - Admission History of Present Illness: This is a 68 y/o man with a PMHx of HTN, HLD, DM, Neuropathy admitted following onset of Aphasia, with difficulty expressing himself. He also reported difficulty swallowing, needing to take very small sips.He also reported memory loss and insomnia. He had a recent sleep study but did not follow up to receive the results yet. History Source: Patient Limitations to Obtaining History: Clinical Condition - Past Medical History Cardiovascular: Yes: HTN, Hyperlipdemia Endocrine: Yes: Diabetes Mellitus - Smoking History Smoking history: Never smoked Have you smoked in the past 12 months: No - Alcohol/Substance Use Hx Alcohol Use: Yes (VERY LITTLE) - Social History ADL: Independent History of Recent Travel: No History - Admission Reason For Visit: EXPRESSIVE APHASIA/TRANSIENT ISCHEMIC ATTACK - Diagnostics X-ray: Report Reviewed CT Scan: Report Reviewed MRI: Report Reviewed (2017 (-) infarcts) - General Mental Status: Alert and Oriented, Awake and Alert, Able to Follow Commands Attention: Intact Ability to Follow Directions: Excellent Head/Neck Control: WFL - Hearing Hearing: Functional Hearing: Normal Speech Evaluation - Communication Primary Language: GERMAN Communication: Yes: Aphasia Oral Expression Ability: Yes: Mild Impairment - Speech Production Able to Make Needs Known: Yes: Mildly Impaired Intelligibility: Yes: WNL - Speech Characteristics Voice Loudness: Normal Voice Pitch: Yes: Normal Voice Phonatory-based Quality: Yes: Normal Speech Pattern: Normal Speech Clarity: < 100% Nasal Resonance: Normal Articulation: Yes: Precise Rate of Speech: Too Slow - Language/Auditory Comprehension Follows: Yes: 2 Stage Simple Commands Observation: Able to respond to yes/no queries: Yes, Yes/No Confusion: No, Comprehends Conversational Speech: Yes - Language/Verbal Expression Aphasia: Yes: Anomia Able to Respond to Simple Queries: Yes: Mildly Impaired (Accurate language formulation but slow to formulate with hestitant word retrieval and mild dysfluency.) Able to Communicate Wants and Needs: Yes: WNL, Mildly Impaired Functional Communication Status: Yes: Mildly Impaired - Swallow Evaluation/Bedside Assessment Current Nutritional Intake: NPO Oral Secretions: Yes: WFL Dentition: Yes: Adequate Facial Symmetry at Rest: Facial Droop Right (slight?) Facial Symmetry on Retraction: Symmetrical Facial Movement: Controlled Against Resistance Opening: Normal Against Resistance Closing: Normal Pucker Lips: Normal Smile: Normal Lingual Movement: Normal, Symmetric Lingual Speed of Movement: Normal Lingual Movement Strgth Against Opposition: Normal Lingual Movement Characteristics: Normal Velopharyngeal Movement: Normal Laryngeal Elevation: WFL Laryngeal Movement: Able to Palpate Rate of Intake: WFL Bolus Size: WFL Labial Seal: WFL Chewing: WFL Oral Prep Time: WFL A-P Transit: WFL Pocketing: None Timing of Swallow: WFL Coughing/Throat Clear: No Change in Voice: No Recommendations - Speech Evaluation, Impression/Plan Impression: Accurate language formulation but slow to formulate with hestitant word retrieval and mild dysfluency.Cognition seems intact. Further w/u indicated due to self-reported memory deficits.Swallowing intact. Upon review with Dr. Page, she reports slow, dysfluent expressive pattern is c/w pt's baseline. - Dysphagia Impressions/Plan Swallowing Skills: WFL Dysphagia Impressions: No Impairment *Silent aspiration: cannot be R/O at bedside Recommendations: Other (RD consult-DM education) - Recommendations Diet Consistency: Regular Medication Administration: Whole with water Liquids: Thin Liquids
--- NOTE | 2019-03-29 11:25 | PN ---
Progress Note (short form) - Note Progress Note: Events noted Speaking clearly no distress no left sided weakness Vital Signs - 24 hr 03/28/19 03/29/19 03/29/19 22:59 02:54 03:36 Temperature 98.4 F 97.8 F Pulse Rate 73 88 Pulse Rate [ 87 Apical] Respiratory 18 20 20 Rate Blood Pressure 152/76 139/88 Blood Pressure 135/87 [Right Arm] O2 Sat by Pulse 99 98 98 Oximetry (%) 03/29/19 03/29/19 03/29/19 06:00 09:00 10:00 Temperature 97.6 F 98 F Pulse Rate 89 83 Pulse Rate [ Apical] Respiratory 20 20 20 Rate Blood Pressure 151/105 H 117/72 Blood Pressure [Right Arm] O2 Sat by Pulse 98 Oximetry (%) Current Medications Generic Name Dose Route Start Last Admin Trade Name Freq PRN Reason Stop Dose Admin Aspirin 325 mg 03/30/19 10:00 Asa - PO DAILY [facility] Gabapentin 300 mg 03/29/19 13:00 Neurontin - PO DAILY [facility] Insulin Aspart 0 units 03/29/19 11:00 Novolog Vial SQ TIDAC [facility] Protocol Insulin Detemir 16 units 03/29/19 13:00 Levemir Vial SQ BID [facility] Labetalol HCl 100 mg 03/29/19 22:00 Normodyne - PO BID [facility] Lisinopril 20 mg 03/29/19 22:00 Prinivil PO HS [facility] Metformin HCl 500 mg 03/29/19 22:00 Glucophage - PO BID [facility] Rosuvastatin Calcium 10 mg 03/29/19 22:00 Crestor - PO HS [facility] Trazodone HCl 50 mg 03/29/19 22:00 Desyrel - PO HS [facility] Laboratory Results - last 24 hr 03/28/19 03/28/19 03/29/19 23:25 23:25 03:04 WBC 3.0 L RBC 4.68 Hgb 13.4 Hct 41.6 MCV 88.8 MCH 28.6 MCHC 32.2 RDW 12.6 Plt Count 218 D MPV 8.9 Absolute Neuts (auto) 2.2 Neutrophils % 72.8 Lymphocytes % 17.6 D Monocytes % 8.0 Eosinophils % 0.6 Basophils % 1.0 Nucleated RBC % 0 Sodium 130 L Potassium 4.6 Chloride 95 L Carbon Dioxide 28 Anion Gap 7 L BUN 41 H Creatinine 1.5 H Est GFR (CKD-EPI)AfAm 55.43 Est GFR (CKD-EPI)NonAf 47.82 POC Glucometer Random Glucose 174 H Hemoglobin A1c % Calcium 8.7 Total Bilirubin 1.0 AST 41 H ALT 41 Alkaline Phosphatase 78 Creatine Kinase 377 H Creatine Kinase Index 2.0 CK-MB (CK-2) 7.6 H Troponin I < 0.02 Total Protein 6.7 Albumin 3.6 Triglycerides 107 Total LDL Cholesterol 102 H HDL Cholesterol 61 H TSH 0.54 D Urine Color Yellow Urine Appearance Clear Urine pH 5.0 Ur Specific [place] 1.016 Urine Protein Negative Urine Glucose (UA) 3+ H Urine Ketones Negative Urine Blood Negative Urine Nitrite Negative Urine Bilirubin Negative Urine Urobilinogen 0.2 Ur Leukocyte Esterase Negative 03/29/19 03/29/19 03/29/19 05:30 05:30 06:19 WBC RBC Hgb Hct MCV MCH MCHC RDW Plt Count MPV Absolute Neuts (auto) Neutrophils % Lymphocytes % Monocytes % Eosinophils % Basophils % Nucleated RBC % Sodium 137 Potassium 4.0 Chloride 102 Carbon Dioxide 26 Anion Gap 9 BUN 38 H Creatinine 1.3 Est GFR (CKD-EPI)AfAm 65.90 Est GFR (CKD-EPI)NonAf 56.86 POC Glucometer 69 Random Glucose 65 L Hemoglobin A1c % 13.8 H Calcium 9.0 Total Bilirubin 1.0 AST 34 ALT 35 Alkaline Phosphatase 74 Creatine Kinase Creatine Kinase Index CK-MB (CK-2) Troponin I < 0.02 Total Protein 6.3 L Albumin 3.4 Triglycerides Total LDL Cholesterol HDL Cholesterol TSH Urine Color Urine Appearance Urine pH Ur Specific [place] Urine Protein Urine Glucose (UA) Urine Ketones Urine Blood Urine Nitrite Urine Bilirubin Urine Urobilinogen Ur Leukocyte Esterase 03/29/19 08:14 WBC RBC Hgb Hct MCV MCH MCHC RDW Plt Count MPV Absolute Neuts (auto) Neutrophils % Lymphocytes % Monocytes % Eosinophils % Basophils % Nucleated RBC % Sodium Potassium Chloride Carbon Dioxide Anion Gap BUN Creatinine Est GFR (CKD-EPI)AfAm Est GFR (CKD-EPI)NonAf POC Glucometer 79 Random Glucose Hemoglobin A1c % Calcium Total Bilirubin AST ALT Alkaline Phosphatase Creatine Kinase Creatine Kinase Index CK-MB (CK-2) Troponin I Total Protein Albumin Triglycerides Total LDL Cholesterol HDL Cholesterol TSH Urine Color Urine Appearance Urine pH Ur Specific [place] Urine Protein Urine Glucose (UA) Urine Ketones Urine Blood Urine Nitrite Urine Bilirubin Urine Urobilinogen Ur Leukocyte Esterase S1 S2 RRR Lungs clear Abd- soft, NT no edema no weakness PLAN Echo -- diastolic dysfunction Carotid doppler- - no stenosis labs noted uncontrolled DM-- pt is seeing an tankerman from [facility]-- will continue with jack and JAZZY tele MRI ordered-- seen by Neurology today Cardiology eval continue with meds Problem List - Problems (1) HLD (hyperlipidemia) Code(s): E78.5 - HYPERLIPIDEMIA, UNSPECIFIED (2) HTN (hypertension) Code(s): I10 - ESSENTIAL (PRIMARY) HYPERTENSION (3) TIA (transient ischemic attack) Code(s): G45.9 - TRANSIENT CEREBRAL ISCHEMIC ATTACK, UNSPECIFIED (4) Diabetes Code(s): E11.9 - TYPE 2 DIABETES MELLITUS WITHOUT COMPLICATIONS
--- NOTE | 2019-03-29 12:08 | EKG ---
Test Reason : Blood Pressure : / mmHG Vent. Rate : 070 BPM Atrial Rate : 070 BPM P-R Int : 264 ms QRS Dur : 116 ms QT Int : 428 ms P-R-T Axes : 000 012 027 degrees QTc Int : 462 ms SINUS RHYTHM WITH MARKED SINUS ARRHYTHMIA WITH 1ST DEGREE A-V BLOCK CANNOT RULE OUT ANTERIOR INFARCT (CITED ON OR BEFORE 09-FEB-2018) ABNORMAL ECG WHEN COMPARED WITH ECG OF 09-FEB-2018 22:13, SINUS RHYTHM HAS REPLACED ECTOPIC ATRIAL RHYTHM Confirmed by MD Boo, Mark ([id number]) on 03/29/2019 12:07:51 PM Referred By: Confirmed By:Mark Haddad MD
--- NOTE | 2019-03-29 12:20 | CON.CARD ---
Cardiology Consult (text) - Consultation Consultation Note: Cardiology Consult (text) - Consultation Consultation Note: cc: syncope hpi: 68 m hx dm, htn, here with L sided weakness for the last 2 days and syncope evening prior to admission. No chest pain, palps, dyspnea, dizziness, edema. Sees Dr. Lui for cardio. Had several hours where he was busy yesterday with appointments, felt very tired, started having tremors, weakness and then "was out" for two hours. He woke up when his called him and then "fell out" again after for another two hours he thinks. pmh: per hpi psh: insulin pump social: no tob fam: no premature cad, scd ros: per hpi; no nvd, cough, nasal congestion, [place], vision changes, gib, hematuria, dysuria meds: Home Medications Medication Instructions Recorded Aspirin [ASA -] 325 mg PO DAILY 12/11/14 Gabapentin 300 mg PO DAILY 12/11/14 Labetalol HCl [Normodyne -] 100 mg PO BID 12/11/14 Cholecalciferol (Vitamin D3) 50,000 unit PO ASDIR 07/10/16 [Vitamin D3] Liraglutide [Victoza -] 1.8 mg SQ DAILY 07/10/16 Aspirin/Acetaminophen/Caffeine 1 each PO PRN 10/19/18 [Excedrin Extra Strength Caplet] Insulin Glargine,Hum.rec.anlog 32 unit SQ DAILY 10/19/18 [Lantus] Lisinopril [Prinivil] 20 mg PO HS 10/19/18 Rosuvastatin [Crestor -] 10 mg PO HS 10/19/18 traZODone HCL [Trazodone HCl] 50 mg PO HS 10/19/18 Metformin HCl [Glucophage] 500 mg PO BID 10/20/18 pe: Vital Signs Period Temp Pulse Resp BP Sys/Duron Pulse Ox Last 24 Hr 97.6 F-98.4 F 73-89 18-20 117-152/72-105 98-99 nad no jvd rrr s1s2 no mrg cta bl nl eff aaox3 no le e/e/c abd nt nd pos bs no jaundice diaphoreis pos dp pt no carotid bruits Laboratory Last Values WBC 3.0 K/mm3 (4.0-10.0) L 03/28/19 23:25 RBC 4.68 M/mm3 (4.00-5.60) 03/28/19 23:25 Hgb 13.4 GM/dL (11.7-16.9) 03/28/19 23:25 Hct 41.6 % (35.4-49) 03/28/19 23:25 MCV 88.8 fl (80-96) 03/28/19 23:25 MCH 28.6 pg (25.7-33.7) 03/28/19 23:25 MCHC 32.2 g/dl (32.0-35.9) 03/28/19 23:25 RDW 12.6 % (11.9-15.9) 03/28/19 23:25 Plt Count 218 K/MM3 (134-434) D 03/28/19 23:25 MPV 8.9 fl (7.5-11.1) 03/28/19 23:25 Absolute Neuts (auto) 2.2 K/mm3 (1.5-8.0) 03/28/19 23:25 Neutrophils % 72.8 % (42.8-82.8) 03/28/19 23:25 Lymphocytes % 17.6 % (8-40) D 03/28/19 23:25 Monocytes % 8.0 % (3.8-10.2) 03/28/19 23:25 Eosinophils % 0.6 % (0-4.5) 03/28/19 23:25 Basophils % 1.0 % (0-2.0) 03/28/19 23:25 Nucleated RBC % 0 % (0-0) 03/28/19 23:25 Sodium 137 mmol/L (136-145) 03/29/19 05:30 Potassium 4.0 mmol/L (3.5-5.1) 03/29/19 05:30 Chloride 102 mmol/L (98-107) 03/29/19 05:30 Carbon Dioxide 26 mmol/L (21-32) 03/29/19 05:30 Anion Gap 9 MMOL/L (8-16) 03/29/19 05:30 BUN 38 mg/dL (7-18) H 03/29/19 05:30 Creatinine 1.3 mg/dL (0.55-1.3) 03/29/19 05:30 Est GFR (CKD-EPI)AfAm 65.90 03/29/19 05:30 Est GFR (CKD-EPI)NonAf 56.86 03/29/19 05:30 POC Glucometer 151 UNITS (80-120) 03/29/19 11:38 Random Glucose 65 mg/dL (74-106) L 03/29/19 05:30 Hemoglobin A1c % 13.8 % (4.2-6.3) H 03/29/19 05:30 Calcium 9.0 mg/dL (8.5-10.1) 03/29/19 05:30 Total Bilirubin 1.0 mg/dL (0.2-1) 03/29/19 05:30 AST 34 U/L (15-37) 03/29/19 05:30 ALT 35 U/L (13-61) 03/29/19 05:30 Alkaline Phosphatase 74 U/L (45-117) 03/29/19 05:30 Creatine Kinase 377 U/L (26-308) H 03/28/19 23:25 Creatine Kinase Index 2.0 % (0.0-5.0) 03/28/19 23:25 CK-MB (CK-2) 7.6 ng/mL (0.5-3.6) H 03/28/19 23:25 Troponin I < 0.02 ng/ml (0.00-0.05) 03/29/19 05:30 Total Protein 6.3 g/dl (6.4-8.2) L 03/29/19 05:30 Albumin 3.4 g/dl (3.4-5.0) 03/29/19 05:30 Triglycerides 107 mg/dL (0-150) 03/28/19 23:25 Total LDL Cholesterol 102 mg/dL (5-100) H 03/28/19 23:25 HDL Cholesterol 61 mg/dL (40-60) H 03/28/19 23:25 TSH 0.54 uIU/ml (0.358-3.74) D 03/28/19 23:25 Urine Color Yellow 03/29/19 03:04 Urine Appearance Clear 03/29/19 03:04 Urine pH 5.0 (5.0-8.0) 03/29/19 03:04 Ur Specific [place] 1.016 (1.010-1.035) 03/29/19 03:04 Urine Protein Negative (NEGATIVE) 03/29/19 03:04 Urine Glucose (UA) 3+ (NEGATIVE) H 03/29/19 03:04 Urine Ketones Negative (NEGATIVE) 03/29/19 03:04 Urine Blood Negative (NEGATIVE) 03/29/19 03:04 Urine Nitrite Negative (NEGATIVE) 03/29/19 03:04 Urine Bilirubin Negative (NEGATIVE) 03/29/19 03:04 Urine Urobilinogen 0.2 mg/dL (0.2-1.0) 03/29/19 03:04 Ur Leukocyte Esterase Negative (NEGATIVE) 03/29/19 03:04 echo 07/2012: nl lv/rv, no sig valve path Kam[place] stress MPI 09/2013: no ischemia [place] stress MPI 07/2015: nl mpi, nl lvef Echo 07/2015: normal LV/RV function, no sig valv abn Echo 02/2013: normal LV/RV function, no sig valv abn Echo 12/2008 ([place]): normal LV/RV function, no sig valv abn Carotid Doppler 03/2013: no sig stenosis Carotid Doppler 07/2015: mild dz, no sig stenosis Cath 04/2004: normal cors, mildly reduced LVF EPS 04/2004: normal, no inducible VT holter 08/2015: benign study echo 03/2019 nl LV function, mild conc LVH, abnormal LV relaxation, nl RV cxr: clear lungs ecg: sr vs ectopic atrial pacemaker, nl intervals, no ischemic changes, unchanged from prior tele: sinus rhythm a/p: 68 m hx dm, htn, here with syncope. syncope, possible TIA - pt had remote hx of nsvt for which EP study and cath were unremarkable in 2003 has recurrence episodes of syncope evaluated in past and thought to be from hypoglycemia - neuro consulted - head CT neg, carotid doppler pending - trop neg x 2, EKG no ischemic changes, less like ACS - echo nl LV function - monitoring on tele - no events - history less consistent with cardiac etiology, MRI brain pending per neuro. also with difficulty controlling blood sugars, manage DM per primary htn: -stable, cont home meds DM - manage per primary
[2019-03-29] MEDS: INSULIN (NOVOLOG) ASPART 100 UNITS/ML 10ML VIAL SQ SCH ×2 (12:30→18:02)
[2019-03-29] MEDS ORDERED: INSULIN (LEVEMIR) 100 UNITS/ML UNITS SQ SCH (13:00)
[2019-03-29] MEDS: GABAPENTIN 300 MG CAPSULE (FP) PO SCH (13:44)
[2019-03-29] MEDS ORDERED: ASPIRIN COATED 81 MG TABLET.EC ONE (18:01)
[2019-03-29] MEDS ORDERED: traZODone HCL 50 MG TABLET (FP) PO SCH (22:00)
[2019-03-29] MEDS ORDERED: metFORMIN HCL 500 MG TABLET (FP) PO SCH (22:00)
[2019-03-29] MEDS ORDERED: LISINOPRIL 20 MG TABLET (FP) PO SCH (22:00)
[2019-03-29] MEDS ORDERED: ROSUVASTATIN CA 10 MG TABLET (FP) PO SCH (22:00)
[2019-03-29] MEDS: LABETALOL HCL 200 MG TABLET (FP) PO SCH (22:15)
[2019-03-29] MEDS: INSULIN (LEVEMIR) 100 UNITS/ML UNITS SQ SCH (22:16)
[2019-03-30 03:31] VITALS: TEMP 97.7
[2019-03-30 05:57] VITALS: BP 142/85; PULSE 85
[2019-03-30] MEDS: INSULIN (NOVOLOG) ASPART 100 UNITS/ML 10ML VIAL SQ SCH (07:17)
[2019-03-30] MEDS: INSULIN (LEVEMIR) 100 UNITS/ML UNITS SQ SCH (07:17)
--- NOTE | 2019-03-30 08:42 | CON.NEURO ---
Consult - Past Medical History Cardio/Vascular: Yes: HTN, Hyperlipdemia Endocrine: Yes: Diabetes Mellitus - Alcohol/Substance Use Hx Alcohol Use: Yes (VERY LITTLE) - Smoking History Smoking history: Never smoked Have you smoked in the past 12 months: No - Social History ADL: Independent History of Recent Travel: No Home Medications - Allergies Allergies/Adverse Reactions: Allergies Allergy/AdvReac Type Severity Reaction Status Date / Time No Known Drug Allergies Allergy Verified 10/20/18 11:26 - Home Medications Home Medications: Ambulatory Orders Aspirin [ASA -] 325 mg PO DAILY 12/11/14 Gabapentin 300 mg PO DAILY 12/11/14 Labetalol HCl [Normodyne -] 100 mg PO BID 12/11/14 Cholecalciferol (Vitamin D3) [Vitamin D3] 50,000 unit PO ASDIR 07/10/16 Liraglutide [Victoza -] 1.8 mg SQ DAILY 07/10/16 Aspirin/Acetaminophen/Caffeine [Excedrin Extra Strength Caplet] 1 each PO PRN Insulin Glargine,Hum.rec.anlog [Lantus] 32 unit SQ DAILY 10/19/18 Lisinopril [Prinivil] 20 mg PO HS 10/19/18 Rosuvastatin [Crestor -] 10 mg PO HS 10/19/18 traZODone HCL [Trazodone HCl] 50 mg PO HS 10/19/18 Metformin HCl [Glucophage] 500 mg PO BID 10/20/18 Physical Exam-Neuro Vital Signs: Vital Signs Temperature 97.7 F 03/30/19 02:00 Pulse Rate 85 03/30/19 05:57 Respiratory Rate 20 03/30/19 05:57 Blood Pressure 142/85 03/30/19 05:57 O2 Sat by Pulse Oximetry (%) 98 03/29/19 21:00 Labs: CBC, BMP 03/28/19 23:25 03/29/19 05:30 Assessment/Plan cc Transient Left sided weakness and syncope HPI 68 year old male history of Dm, htn,hld, Diabetic Neuropathy. He came with dysarthria and left sided weakness, which seems to be resolved. At the same time he did have syncopal episode. Patient also take excedrin everyday for sleep. He do suffer from neuropathy and takes gabapnetin. He has extensive work up done, including mri ofbrain, mra of neck , brain and carotid ultrasound . All work up is negative. Patient is not sure if he has been taking medication everyday. PMH as above. SH,ROS,FH reviewed in chart NKDA Home Medications: Aspirin [ASA -] 325 mg PO DAILY 12/11/14 Gabapentin 300 mg PO DAILY 12/11/14 Labetalol HCl [Normodyne -] 100 mg PO BID 12/11/14 Cholecalciferol (Vitamin D3) [Vitamin D3] 50,000 unit PO ASDIR 07/10/16 Liraglutide [Victoza -] 1.8 mg SQ DAILY 07/10/16 Aspirin/Acetaminophen/Caffeine [Excedrin Extra Strength Caplet] 1 each PO PRN Insulin Glargine,Hum.rec.anlog [Lantus] 32 unit SQ DAILY 10/19/18 Lisinopril [Prinivil] 20 mg PO HS 10/19/18 Rosuvastatin [Crestor -] 10 mg PO HS 10/19/18 traZODone HCL [Trazodone HCl] 50 mg PO HS 10/19/18 Metformin HCl [Glucophage] 500 mg PO BID 10/20/18 NEUROLOGICAL Examination Alert oriented x 3, no neck stiffness EOMI, pupils reactive no face asymmetry Moving all ext 5/5 all ext sensation is diminised in hand and feet reflex are diminisehd ct head is unreamrkabale mra of neck, brain, carotid ultrasound is unremarkable Assessment/Plan 68 year old male history of DM,HTN, Neuropathy have one episode of possible tia , and work up is negative. Now he is back to normal from neurological point of view Plan: crestor can be increased to 20 mg as he has tia while takign 10 mg once a day increase aspirin to 325 mg once a day life style modifications No further recommendation from neurological point of view Thanking you so much Finn Gannon MD
[2019-03-30] MEDS ORDERED: INSULIN GLARGINE HUM REC ANLOG 32 UNIT SQ SCH (10:00)
[2019-03-30] MEDS ORDERED: ASPIRIN 81 MG CHEWABLE TABLETS PO SCH (10:00)
[2019-03-30] MEDS ORDERED: ASPIRIN 325 MG ENTERIC COATED TABLET (FP) PO SCH (10:00)
[2019-03-30] MEDS ORDERED: GABAPENTIN 300 MG PO SCH (10:00)
[2019-03-30] MEDS ORDERED: ASPIRIN 325 MG TABLET PO SCH (10:00)
[2019-03-30] MEDS ORDERED: [UNRECOGNIZED DRUG - OTHER] SQ SCH (10:00)
--- NOTE | 2019-03-30 10:56 | PN ---
Progress Note, AUDIT TECH - Note Progress Note: Selected Entries 03/29/19 03/29/19 03/29/19 02:54 03:36 06:00 Supper Temperature 98.4 F 97.8 F 97.6 F 03/29/19 03/29/19 03/29/19 10:00 14:00 18:00 Supper Temperature 98 F 98.2 F 98.0 F 03/29/19 03/29/19 03/30/19 22:00 22:42 02:00 Supper 100% Temperature 97.6 F 97.7 F Laboratory Tests 03/28/19 23:25 WBC 3.0 L MRI reviewed. Propositional speech, slow to formulate but accurate, c/w baseline per PMD.
--- NOTE | 2019-03-30 11:12 | DS ---
Physical Examination Vital Signs: Vital Signs Temperature 97.7 F 03/30/19 02:00 Pulse Rate 85 03/30/19 05:57 Respiratory Rate 20 03/30/19 09:00 Blood Pressure 142/85 03/30/19 05:57 O2 Sat by Pulse Oximetry (%) 98 03/30/19 09:00 Constitutional: Yes: No Distress, Calm Cardiovascular: Yes: Regular Rate and Rhythm Respiratory: Yes: CTA Bilaterally Gastrointestinal: Yes: Normal Bowel Sounds, Soft. No: Tenderness Edema: No Labs: CBC, BMP 03/28/19 23:25 03/29/19 05:30 Discharge Summary Reason For Visit: EXPRESSIVE APHASIA/TRANSIENT ISCHEMIC ATTACK Current Active Problems HLD (hyperlipidemia) (Acute) HTN (hypertension) (Acute) TIA (transient ischemic attack) (Acute) Hospital Course: ADmitted for expressive aphasia and left sided weakness which resolved quickly CT head-- negative He was seen by Cardiology and Neurology Cardiac bowden stable MRI brain, neck-- negative Advised to continue ASA 325mg daily and increaser Crestor 20mg hs stable for dc home he needs to follow up with diabetic team at [facility] Condition: Stable - Instructions Diet, Activity, Other Instructions: follow up with diabetic team at [facility] Disposition: HOME - Home Medications Comprehensive Discharge Medication List: Ambulatory Orders Aspirin [ASA -] 325 mg PO DAILY 12/11/14 Gabapentin 300 mg PO DAILY 12/11/14 Labetalol HCl [Normodyne -] 100 mg PO BID 12/11/14 Cholecalciferol (Vitamin D3) [Vitamin D3] 50,000 unit PO ASDIR 07/10/16 Liraglutide [Victoza -] 1.8 mg SQ DAILY 07/10/16 Insulin Glargine,Hum.rec.anlog [Lantus] 32 unit SQ DAILY 10/19/18 Lisinopril [Prinivil] 20 mg PO HS 10/19/18 Rosuvastatin [Crestor -] 10 mg PO HS 10/19/18 traZODone HCL [Trazodone HCl] 50 mg PO HS 10/19/18 Metformin HCl [Glucophage] 500 mg PO BID 10/20/18 Rosuvastatin [Crestor -] 20 mg PO HS #60 tablet 03/30/19
[2019-03-30] MEDS: LABETALOL HCL 200 MG TABLET (FP) PO SCH (11:53)
[2019-03-30] MEDS: GABAPENTIN 300 MG CAPSULE (FP) PO SCH (11:54)
--- NOTE | 2019-03-30 12:07 | PN ---
Progress Note (short form) - Note Progress Note: s: no chest pain, palps, dizziness, lightheadedness Current Medications Aspirin (Ecotrin -) 325 mg PO DAILY [facility] Last Admin: 03/30/19 11:54 Dose: 325 mg Gabapentin (Neurontin -) 300 mg PO DAILY [facility] Last Admin: 03/30/19 11:54 Dose: 300 mg Insulin Aspart (Novolog Vial) 0 units SQ TIDAC [facility]; Protocol Last Admin: 03/30/19 07:17 Dose: 2 units Insulin Detemir (Levemir Vial) 18 units SQ BID@0700,2200 [facility] Last Admin: 03/30/19 07:17 Dose: 18 units Labetalol HCl (Normodyne -) 100 mg PO BID [facility] Last Admin: 03/30/19 11:53 Dose: 100 mg Lisinopril (Prinivil) 20 mg PO HS [facility] Last Admin: 03/29/19 22:15 Dose: 20 mg Rosuvastatin Calcium (Crestor -) 20 mg PO [facility] Trazodone HCl (Desyrel -) 50 mg PO [facility] Last Admin: 03/29/19 22:14 Dose: 50 mg Vital Signs Period Temp Pulse Resp BP Sys/Duron Pulse Ox Last 24 Hr 97.6 F-98.2 F 80-97 16-20 118-155/62-89 98-98 nad no jvd rrr s1s2 no mrg cta bl nl eff aaox3 no le e/e/c abd nt nd pos bs no jaundice diaphoreis pos dp pt no carotid bruits echo 07/2012: nl lv/rv, no sig valve path [place] stress MPI 09/2013: no ischemia [place] stress MPI 07/2015: nl mpi, nl lvef Echo 07/2015: normal LV/RV function, no sig valv abn Echo 02/2013: normal LV/RV function, no sig valv abn Echo 12/2008 ([place]): normal LV/RV function, no sig valv abn Carotid Doppler 03/2013: no sig stenosis Carotid Doppler 07/2015: mild dz, no sig stenosis Cath 04/2004: normal cors, mildly reduced LVF EPS 04/2004: normal, no inducible VT holter 08/2015: benign study echo 03/2019 nl LV function, mild conc LVH, abnormal LV relaxation, nl RV cxr: clear lungs ecg: sr vs ectopic atrial pacemaker, nl intervals, no ischemic changes, unchanged from prior tele: sinus rhythm a/p: 68 m hx dm, htn, here with syncope. syncope, possible TIA - pt had remote hx of nsvt for which EP study and cath were unremarkable in 2003 has recurrence episodes of syncope evaluated in past and thought to be from hypoglycemia - neuro consulted - head CT neg, carotid doppler pending - trop neg x 2, EKG no ischemic changes, less like ACS - echo nl LV function - monitoring on tele - no events - stable for dc from cardiac perspective HLD - continue statin, increased dose to crestor to 20 mg daily htn: -stable, cont home meds DM - manage per primary
[2019-03-30] MEDS ORDERED: ROSUVASTATIN CA 20 MG TABLET (FP) PO SCH (22:00)
== END 2019-03-30 14:16 | disposition home or self-care (01) | DRG 69 ==
LOC: JER 22:08 → JERBED 03-29 00:42 → J4W 03-29 03:45
PROVIDERS: ADMIT Internal Medicine; ATTEND Internal Medicine
DX: G45.9 Transient cerebral ischemic attack, unspecified (principal); E11.65 Type 2 diabetes mellitus with hyperglycemia; Z79.4 Long term (current) use of insulin; E11.40 Type 2 diabetes mellitus with diabetic neuropathy, unspecified; I10 Essential (primary) hypertension; R55 Syncope and collapse; E78.5 Hyperlipidemia, unspecified; G62.9 Polyneuropathy, unspecified
CPT/HCPCS: 36415; 70450-TC; 70544-TC; 70547-TC; 70551-TC; 71045-TC-FY; 80048; 80053; 81003; 82550; 82553; 82962; 83036; 83718; 83721; 84443; 84478; 84484; 85025; 87086; 93005; 93010; 93306-TC; 93880-TC; 97116-GP; 97162-GP; 99284-25

== ENCOUNTER 2019-08-04 13:33 | Inpatient (IN) | payer OTHER, BC ==
--- NOTE | 2019-08-04 14:43 | PDOC ---
History of Present Illness - General Chief Complaint: Syncope/Near Syncope Stated Complaint: Syncope/Near Syncope Time Seen by Provider: 08/04/19 14:39 - History of Present Illness Initial Comments: 08/04/19 15:29 HPI: 68 y/o M with hx of HTN, HLD, IDDM (last A1c 14%), TIA, peripheral neuropathy presents from his psychologist office following a syncopal episode. He states he had just finished his session and was looking something up on his phone when he suddenly felt "like things froze" and passed out. He woke up on the round with his doctor around him and was told he had lost consciousness for 1 minute. Patient was given water and was able to eventually get up after 20-30minutes and drive to the ED with his pyschologist driving behind him. Patient reports feeling dehydrated and reports taking his insulin this morning even though he only had a banana this morning. Patient denies any chest pain, SOB, AGGARWAL, change in vision, abd pain, diaphoresis, n/v. He reports he is unsure if he hit his head Of note, patient with new ulcer wound on right wound 2nd toe noticed 2 days ago with bleeding and drainage with ?purulence but no foul odor. Was started on ciprofloxacin and clindamycin PMHx: as noted above ROS: as noted SHx: Denies tobacco use; no alcohol use; no rec drugs Allergies: NKDA ROS: GENERAL/CONSTITUTIONAL: No fever or chills. No weakness. HEAD, EYES, EARS, NOSE AND THROAT: No change in vision. No ear pain or discharge. No sore throat. CARDIOVASCULAR: No chest pain or shortness of breath RESPIRATORY: No cough, wheezing, or hemoptysis. GASTROINTESTINAL: No nausea, vomiting, diarrhea or constipation. GENITOURINARY: No dysuria, frequency, or change in urination. MUSCULOSKELETAL: No joint or muscle swelling or pain. No neck or back pain. SKIN: No rash NEUROLOGIC: No headache, vertigo, or change in strength/sensation. ENDOCRINE: No increased thirst. No abnormal weight change HEMATOLOGIC/LYMPHATIC: No anemia, easy bleeding, or history of blood clots. ALLERGIC/IMMUNOLOGIC: No hives or skin allergy. PE: GENERAL: Awake, alert, and fully oriented, no acute distress HEAD: No signs of trauma, normocephalic, atraumatic EYES: EOMI, sclera anicteric, conjunctiva clear ENT: Auricles normal inspection, hearing grossly normal, nares patent, oropharynx clear without exudates. Moist mucosa NECK: Normal ROM, no lymphadenopathy LUNGS: No increased work of breathing, symmetrical chest rise, clear to auscultation bilaterally, no wheezes, crackles or rhonchi HEART: Regular rate and rhythm, normal S1 and S2, no murmurs, peripheral pulses 2+ and equal bilaterally. ABDOMEN: Soft, nondistended, nontender, normoactive bowel sounds. No guarding, no rebound. No masses EXTREMITIES: Normal range of motion, no edema. No clubbing or cyanosis. Right foot 2nd tarsal with ulcerated wound with clean edges, no bleeding, jno erythema , no purulence or drainage NEUROLOGICAL: Cranial nerves II through XII grossly intact. Normal speech, normal gait, no focal sensorimotor deficits SKIN: Warm, Dry, normal turgor, no rashes or lesions noted Past History - Past Medical History Allergies/Adverse Reactions: Allergies Allergy/AdvReac Type Severity Reaction Status Date / Time No Known Drug Allergies Allergy Verified 08/04/19 14:38 Home Medications: Ambulatory Orders Aspirin [ASA -] 325 mg PO DAILY 12/11/14 Labetalol HCl [Normodyne -] 200 mg PO BID 12/11/14 Cholecalciferol (Vitamin D3) [Vitamin D3] 50,000 unit PO ASDIR 07/10/16 Liraglutide [Victoza -] 1.8 mg SQ DAILY 07/10/16 Insulin Glargine,Hum.rec.anlog [Lantus] 32 unit SQ DAILY 10/19/18 Lisinopril [Prinivil] 20 mg PO HS 10/19/18 traZODone HCL [Trazodone HCl] 50 mg PO HS 10/19/18 Metformin HCl [Glucophage] 1,000 mg PO BID 10/20/18 Rosuvastatin [Crestor -] 20 mg PO HS #60 tablet 03/30/19 Anemia: No Asthma: No Cancer: No Cardiac Disorders: Yes (IRREGULAR HEARTBEAT) CVA: No COPD: No CHF: No Dementia: No Diabetes: Yes GI Disorders: No Disorders: No HTN: Yes Hypercholesterolemia: Yes Liver Disease: No Seizures: No Thyroid Disease: No - Surgical History Cardiac Surgery: Yes (?ABLATION 2003) - Immunization History Immunization Up to Date: No - Suicide/Smoking/Psychosocial Hx Smoking History: Unknown if ever smoked Have you smoked in the past 12 months: No Information on smoking cessation initiated: No Hx Alcohol Use: No Drug/Substance Use Hx: No Substance Use Type: Alcohol *Physical Exam - Vital Signs Last Vital Signs Temp Pulse Resp BP Pulse Ox 97.3 F L 73 16 108/79 100 08/04/19 13:33 08/04/19 13:33 08/04/19 13:33 08/04/19 13:33 08/04/19 13:33 ED Treatment Course - LABORATORY CBC & Chemistry Diagram: 08/04/19 15:50 08/04/19 15:50 Medical Decision Making - Medical Decision Making 08/04/19 15:57 68 y/o M with hx of HTN, HLD, IDDM (last A1c 14%), TIA, peripheral neuropathy presents from his psychologist office following a syncopal episode with LOC. Vitals BP 108/79 HR 73 AF. PE unremarkable. DDx includes hypoglycemia, dehydration, anemia, ACS, arrhythmia -EKG, CXR, CThead, CT spine -CBC, cmp, cradiad prof, UA, ucx -IVF 08/04/19 15:59 EKG with irregular rhythm and ?junctional rhythm with no P waves. compared to skylar ekg in March/2019, p waves were present will plann to admit to tele obs 08/04/19 17:47 on further history, patient reports increased MITCHELL when going upstairs associated with [facility] admitting team, pending admission 08/04/19 18:55 Admitted to tele obs under Kelley Tsang *DC/Admit/Observation/Transfer Diagnosis at time of Disposition: Syncope Qualifiers: Syncope type: unspecified Qualified Code(s): R55 - Syncope and collapse Dysrhythmia, cardiac Qualifiers: Arrhythmia type: other cardiac arrhythmia Qualified Code(s): I49.8 - Other specified cardiac arrhythmias - Referrals - Patient Instructions - Post Discharge Activity
[2019-08-04] MEDS ORDERED: SODIUM CHLORIDE 1,000 ML IV STA (15:25)
--- NOTE | 2019-08-04 16:02 | PDOC ---
Attending Attestation - Resident Resident Name: Gerda Khan - ED Attending Attestation I have performed the following: I have examined & evaluated the patient, The case was reviewed & discussed with the resident, I agree w/resident's findings & plan, Exceptions are as noted - HPI HPI: 08/04/19 16:00 68 M with h/o HTN, HLD, IDDM (last A1c 14%), TIA, peripheral neuropathy presents to ED with syncopal episode. Pt states that he was seated when he suddenly felt like "everything froze", and pt subsequently lost consciousness. Pt denies any preceding CP/SOB/palpitations. Upon awakening, pt states he laid down for several minutes before getting up. Pt states that he feels dehydrated but denies any other complaints. - Physicial Exam PE: 08/04/19 16:02 "GENERAL: Awake, alert, and fully oriented, in no acute distress. HEAD: No signs of trauma EYES: PERRLA, EOMI, sclera anicteric, conjunctiva clear ENT: Auricles normal inspection, hearing grossly normal, nares patent, oropharynx clear without exudates. Moist mucosa NECK: Nontender, no stepoffs, Normal ROM, supple, no lymphadenopathy, JVD, or masses LUNGS: Breath sounds equal, clear to auscultation bilaterally. No wheezes, and no crackles HEART: Regular rate and rhythm, normal S1 and S2, no murmurs, rubs or gallops ABDOMEN: Soft, nontender, normoactive bowel sounds. No guarding, no rebound. No masses EXTREMITIES: Normal range of motion, no edema. No clubbing or cyanosis. No cords, erythema, or tenderness NEUROLOGICAL: Cranial nerves II through XII intact. 5/5 strength and sensation in all extremities, Normal speech, normal gait, normal cerebellar function SKIN: Warm, Dry, normal turgor, no rashes or lesions noted. - Medical Decision Making 08/04/19 16:03 68 M with syncopal episode. EKG shows ? junctional rhythm. Pt may be dehydrated 2/2 poorly controlled DM. - Labs, trop - CXR, UA - CT head - IVF - Admit tele
[2019-08-04 16:23] LABS: BASO % 1.3 % (0-2.0); EOS % 2.9 % (0-4.5); HEMOGLOBIN 11.6 GM/dL (11.7-16.9); LYMPH % 20.9 % (8-40); MCH 28.6 pg (25.7-33.7); MCHC 32.2 g/dl (32.0-35.9); MEAN CELL VOLUME 88.9 fl (80-96); MEAN PLT VOLUME 7.8 fl (7.5-11.1); MONO % 14.5 % (3.8-10.2); NEUT % 60.4 % (42.8-82.8); PLATELET COUNT 310 K/MM3 (134-434); RBC 4.05 M/mm3 (4.00-5.60); RDW 12.9 % (11.9-15.9); WHITE BLOOD COUNT 5.2 K/mm3 (4.0-10.0)
[2019-08-04 17:08] LABS: ALBUMIN 3.1 g/dl (3.4-5.0); ALK PHOS 88 U/L (45-117); ANION GAP 5 MMOL/L (8-16); BILIRUBIN,TOTAL 0.3 mg/dL (0.2-1); BLOOD UREA NITROGEN 31.2 mg/dL (7-18); CALCIUM 8.8 mg/dL (8.5-10.1); CHLORIDE 103 mmol/L (98-107); CO2 28 mmol/L (21-32); CREATININE 1.6 mg/dL (0.55-1.3); GLUCOSE,RANDOM 92 mg/dL (74-106); POTASSIUM 4.8 mmol/L (3.5-5.1); SGOT/AST 35 U/L (15-37); SGPT/ALT 40 U/L (13-61); SODIUM 136 mmol/L (136-145)
--- NOTE | 2019-08-04 17:53 | PN ---
Teaching Attending Note Name of Resident: Angy Ramos ATTENDING PHYSICIAN STATEMENT I saw and evaluated the patient. I reviewed the resident's note and discussed the case with the resident. I agree with the resident's findings and plan as documented. Admitting for PMD Dr Laura Suresh SUBJECTIVE:68yo M wt PMH HTN, DM and TIA presented after syncopal episodes. was at psych appt where he felt like everything froze and then blacked out. was not confused when he woke up. was out for a couple seconds. states his sugar was 200+ this AM and took all his meds at once (levemir/victoza/jardiance) this am and ate a banana and went to his doctors appt. states he has not been eating/ drinking well the past few weeks due to being too busy and admits to noncompliance with his medications. takes them "when I remember". is currently clinda and cipro for foot infection which is closely monitored by identification printing machine setter. denies Cp, SOB, fever, chills, N/V/C/D, recent changes to medication. had renal u/s yesterday by his PMD office scheduled for stress test next month for routine testing OBJECTIVE: Last Vital Signs Temp Pulse Resp BP Pulse Ox 97.3 F L 86 18 124/88 100 08/04/19 13:33 08/04/19 17:32 08/04/19 17:32 08/04/19 17:32 08/04/19 17:32 General NAD, A&O x3 CV S1 S2 RRR no murmur/rub/gallop no carotid bruit Lungs CTA B/L no wheezing/rales/rhonchi Abdomen soft NT/ND Extremities no pedal edema R foot in surgical shoe ASSESSMENT AND PLAN: 68yo M wt PMH HTN, DM and TIA presented after syncopal episodes and found to be in MARY 1. Syncope- likely dehydration. sugars were not tested around the time of incident. check orthostatics, echo and carotid doppler. will place on tele for continuous cardiac monitoring. 2. MARY- due to dehydration. will give IVF. hold nephrotoxic agents. follow up on renal u/s done by PMD and get baseline values 3. DM- not compliant. took insulin already. will resume, bgm and iss. hold oral agents 4. HTN- controlled here. hold acei. cont remaining medication 5. R foot infection- not evaluated by me. cont abx prescribed by podiatry 6. TIA- asa 7. DVT ppx- EAM
[2019-08-04] MEDS ORDERED: ACETAMINOPHEN 325 MG TABLET (FP) PO PRN (18:49)
--- NOTE | 2019-08-04 19:19 | HP ---
CHIEF COMPLAINT: Passed out PCP: Dr. Ramos HISTORY OF PRESENT ILLNESS: 68 y/o M with PMHx of IDDM, HTN, HLD, TIA, Syncope presents after a syncopal episode. Patient was feeling worsening fatigue throughout the day yesterday. Patient woke in his usual state of health this AM however he only ate a banana bc his FSG was 235 (says his typical AM BG is 140s). He then went about his routine and visited his psychologist. After a stressful conversation, patient arose from his seat, ambulated a few steps and syncopized to the ground landing on his tail bone without hitting his head. Denies any associated tongue biting, convulsions or loss of bowel/bladder control. Recalls preceeding lightheadedness but denies any associated chest pain, SOB or dizziness. Patient regained conciousness with out any post ictal sx's. Psychologist reported to patient that he was out for approx 1 minute. Patient then drank 3 glasses of water, sx's improved and he drove to the ED. Denies any associated fevers, chills, nausea, vomiting, diarrhea, constipation. ER course was notable for: (1) (2) (3) Recent Travel: Denies PAST MEDICAL HISTORY: As above PAST SURGICAL HISTORY: Cardiac ablation Endoscopy and Colonoscopy (08/04) Social History: Smoking: Denies Alcohol: Denies Drugs: Denies Occupation: Former [employer], Now retired Ambulation: Cane (Does not use) Residence:Home with Allergies No Known Drug Allergies Allergy (Verified 08/04/19 14:38) HOME MEDICATIONS: Home Medications Medication Instructions Recorded Aspirin [ASA -] 325 mg PO DAILY 12/11/14 Labetalol HCl [Normodyne -] 200 mg PO BID 12/11/14 Cholecalciferol (Vitamin D3) 50,000 unit PO ASDIR 07/10/16 [Vitamin D3] Liraglutide [Victoza -] 1.8 mg SQ DAILY 07/10/16 Insulin Glargine,Hum.rec.anlog 32 unit SQ DAILY 10/19/18 [Lantus] Lisinopril [Prinivil] 20 mg PO HS 10/19/18 traZODone HCL [Trazodone HCl] 50 mg PO HS 10/19/18 Metformin HCl [Glucophage] 1,000 mg PO BID 10/20/18 Rosuvastatin [Crestor -] 20 mg PO HS #60 tablet 03/30/19 REVIEW OF SYSTEMS As per HPI PHYSICAL EXAMINATION Vital Signs - 24 hr 08/04/19 08/04/19 08/04/19 13:33 14:38 17:32 Temperature 97.3 F L Pulse Rate 73 Pulse Rate [ 86 Left Radial] Respiratory 16 18 Rate Blood Pressure 108/79 Blood Pressure 124/88 [Right Arm] O2 Sat by Pulse 100 97 100 Oximetry (%) GENERAL: A&Ox3, AQUILES HEAD: NCAT EYES: PERRL, EOMI ENT: Oropharynx clear without exudates. Moist mucous membranes. NECK: No JVD, No Carotid bruit LUNGS: CTAB, No wheezes, no crackles HEART: Regular rate and rhythm, normal S1 and S2 without murmur ABDOMEN: Soft, nontender, not distended, + bowel sounds, no guarding, no rebound EXTREMITIES: 2+ pulses, No peripheral edema. RLE in surgical shoe, Right 2nd toe with ulcerated wound with clean edges, no active drainage, no surrounding erythema NEUROLOGICAL: Cranial nerves II-XII intact. Normal speech. Diminished sensation over the C8 dermatome and b/l lower extremity, otherwise gross sensation intact throughout. 5/5 muscle strength throughout. SKIN: Warm, dry Laboratory Results - last 24 hr 08/04/19 08/04/19 15:50 15:50 WBC 5.2 RBC 4.05 Hgb 11.6 L Hct 36.0 MCV 88.9 MCH 28.6 MCHC 32.2 RDW 12.9 Plt Count 310 D MPV 7.8 D Absolute Neuts (auto) 3.2 Neutrophils % 60.4 Lymphocytes % 20.9 Monocytes % 14.5 H D Eosinophils % 2.9 D Basophils % 1.3 Nucleated RBC % 0 Sodium 136 Potassium 4.8 Chloride 103 Carbon Dioxide 28 Anion Gap 5 L BUN 31.2 H Creatinine 1.6 H Est GFR (CKD-EPI)AfAm 51.27 Est GFR (CKD-EPI)NonAf 44.24 Random Glucose 92 Calcium 8.8 Total Bilirubin 0.3 AST 35 ALT 40 Alkaline Phosphatase 88 Creatine Kinase 402 H Creatine Kinase Index 1.6 CK-MB (CK-2) 6.7 H Troponin I < 0.02 Total Protein 6.0 L Albumin 3.1 L Active Medications Acetaminophen (Tylenol -) 650 mg PO Q4H PRN PRN Reason: PAIN OR FEVER Sodium Chloride (Normal Saline -) 1,000 mls @ 83 mls/hr IV ASDIR RAMIN Insulin Aspart (Novolog Vial Sliding Scale -) 1 vial SQ ACHS RAMIN; Protocol ASSESSMENT/PLAN: 68 y/o M with PMHx of IDDM, HTN, HLD, TIA, Syncope presents after a syncopal episode. #Syncope -Likely due to dehydration -Troponin, Head CT negative -Check Orthostatic VS, Echo, Carotid dopplers -EKG reveals an undetermined rhythm, ?No visible P Waves, VR 66, QTc 436 -Tele -Continue IV hydration -Seizure/Fall precautions #MARY -In the setting of recent dehydration -Continue IV Hydration -Hold nephrotoxic agents (NSAIDs, ACEi) #IDDM -ISS BGMs ACHS #HTN, Controlled -Hold ACEi; Continue home dose medications, Will need med-rec #Right 2nd digit infection -Continue home dose Clindamycin, Ciprofloxacin #FEN -IV NS -Replete Lytes PRN -Diabetic diet #PPx -DVT: SCDs Visit type - Emergency Visit Emergency Visit: Yes ED Registration Date: 08/04/19 Care time: The patient presented to the Emergency Department on the above date and was hospitalized for further evaluation of their emergent condition. - New Patient This patient is new to me today: Yes Date on this admission: 08/04/19 - Critical Care Critical Care patient: No ATTENDING PHYSICIAN STATEMENT I saw and evaluated the patient. I reviewed the resident's note and discussed the case with the resident. I agree with the resident's findings and plan as documented. SUBJECTIVE: OBJECTIVE: ASSESSMENT AND PLAN:
[2019-08-04] MEDS: SODIUM CHLORIDE 1,000 ML IV SCH (20:00)
[2019-08-05 00:49] VITALS: BMI 24.5
[2019-08-05] MEDS: INSULIN SLIDING SCALE (NOVOLOG) 1 VIAL SQ SCH ×5 (06:16→22:00)
[2019-08-05 07:24] LABS: BILIRUBIN,TOTAL 0.4 mg/dL (0.2-1); BLOOD UREA NITROGEN 27.8 mg/dL (7-18); CALCIUM 8.5 mg/dL (8.5-10.1); CREATININE 1.3 mg/dL (0.55-1.3); MAGNESIUM 2.1 mg/dL (1.8-2.4); PHOSPHOROUS 3.9 mg/dL (2.5-4.9); POTASSIUM 4.2 mmol/L (3.5-5.1); TOT PROT 5.9 g/dl (6.4-8.2)
[2019-08-05 08:16] LABS: BASO % 0.6 % (0-2.0); HEMATOCRIT 35.2 % (35.4-49); HEMOGLOBIN 11.7 GM/dL (11.7-16.9); LYMPH % 29.3 % (8-40); MCH 29.3 pg (25.7-33.7); MCHC 33.2 g/dl (32.0-35.9); MEAN CELL VOLUME 88.2 fl (80-96); MEAN PLT VOLUME 7.5 fl (7.5-11.1); MONO % 14.5 % (3.8-10.2); NEUT % 51.6 % (42.8-82.8); PLATELET COUNT 324 K/MM3 (134-434); RBC 3.99 M/mm3 (4.00-5.60); WHITE BLOOD COUNT 4.6 K/mm3 (4.0-10.0)
[2019-08-05] MEDS ORDERED: PT OWN MED DRAWER 7, Y5N ONE (10:08)
--- NOTE | 2019-08-05 10:17 | PN ---
Progress Note (short form) - Note Progress Note: patient seen and examined in the telemetry. Chart reviewed. Week and comfortable. Denies chest pain or shortness of breath or abdominal pain. Feels much better Vital Signs Temp 98.5 F 08/05/19 06:00 Pulse 96 H 08/05/19 06:00 Resp 18 08/05/19 06:00 BP 135/65 08/05/19 06:00 Pulse Ox 100 08/04/19 23:00 Intake & Output 08/04/19 08/04/19 08/05/19 11:59 23:59 11:59 Intake Total 240 415 Balance 240 415 Weight 166 lb Intake: IV 415 Normal Saline - 1,000 ml 415 @ 83 mls/hr IV ASDIR [facility] Rx#:[id number] Oral 240 Other: Voiding Method Toilet Bowel Movement No Height 5 ft 9 in Body Mass Index (BMI) 24.5 Active Medications Acetaminophen (Tylenol -) 650 mg PO Q4H PRN PRN Reason: PAIN OR FEVER Sodium Chloride (Normal Saline -) 1,000 mls @ 83 mls/hr IV ASDIR [facility] Last Admin: 08/04/19 20:00 Dose: 83 mls/hr Insulin Aspart (Novolog Vial Sliding Scale -) [address] [facility]; Protocol Last Admin: 08/05/19 06:16 Dose: Not Given CBC, BMP 08/05/19 05:20 08/05/19 05:20 Physical exam. Awake and comfortable. HEENT.--- Within normal limits. PERRLA Lungs clear Heart sounds regular Abdomen soft Extremities no edema Neuro alert and oriented 3 nonfocal assessment and plan events noted 68 y/o M with PMHx of IDDM, HTN, HLD, TIA, Syncope presents after a syncopal episode. Patient was feeling worsening fatigue throughout the day yesterday. Patient woke in his usual state of health this AM however he only ate a banana bc his FSG was 235 (says his typical AM BG is 140s). He then went about his routine and visited his psychologist. After a stressful conversation, patient arose from his seat, ambulated a few steps and syncopized to the ground landing on his tail bone without hitting his head. Denies any associated tongue biting, convulsions or loss of bowel/bladder control. Recalls preceeding lightheadedness but denies any associated chest pain, SOB or dizziness. Patient regained conciousness with out any post ictal sx's. Psychologist reported to patient that he was out for approx 1 minute. Patient then drank 3 glasses of water, sx's improved and he drove to the ED. stable Monitor on telemetry Previous labs reviewed Continue present care cardiology to follow Will follow Problem List - Problems (1) Diabetes Code(s): E11.9 - TYPE 2 DIABETES MELLITUS WITHOUT COMPLICATIONS (2) HLD (hyperlipidemia) Code(s): E78.5 - HYPERLIPIDEMIA, UNSPECIFIED (3) HTN (hypertension) Code(s): I10 - ESSENTIAL (PRIMARY) HYPERTENSION (4) Syncope Code(s): R55 - SYNCOPE AND COLLAPSE Qualifiers: Syncope type: unspecified Qualified Code(s): R55 - Syncope and collapse
--- NOTE | 2019-08-05 13:52 | ECHO ---
Name: HUI DISLA Exam:Adult Echocardiogram Study Date: 08/05/2019 10:33 AM Age: 68 yrs Reason For Study: SYNCOPE Height: 69 in Weight: 165 lb BSA: 1.9 m2 MMode/2D Measurements & Calculations IVSd: 1.0 cm Ao root diam: 2.8 cm LVIDd: 4.2 cm LA dimension: 3.5 cm LVIDs: 3.0 cm LVPWd: 0.91 cm EDV(Teich): 77.4 ml LVOT diam: 2.1 cm ESV(Teich): 35.6 ml Doppler Measurements & Calculations MV E max callum: 127.1 cm/sec Ao V2 max: 171.6 cm/sec MV A max callum: 45.7 cm/sec Ao max P.8 mmHg MV E/A: 2.8 Ao V2 mean: 131.5 cm/sec MV dec time: 0.18 sec Ao mean P.6 mmHg Ao V2 VTI: 34.7 cm FATEMEH(I,D): 1.7 cm2 FATEMEH(V,D): 1.9 cm2 LV V1 max P.2 mmHg SV(LVOT): 59.5 ml LV V1 mean P.6 mmHg LV V1 max: 88.8 cm/sec LV V1 mean: 58.9 cm/sec LV V1 VTI: 16.6 cm TR max callum: 177.7 cm/sec TR max P.7 mmHg Left Ventricle Mild basal septal hypertrophy. Left ventricular systolic function is normal. Ejection Fraction = 55-6 0%. The transmitral spectral Doppler flow pattern is suggestive of impaired LV relaxation. Right Ventricle The right ventricle is grossly normal size. The right ventricular systolic function is grossly normal . Atria Normal left and right atrial size and function. Mitral Valve The mitral valve is normal in structure and function. There is no mitral valve stenosis. There is tra ce to mild mitral regurgitation. Tricuspid Valve The tricuspid valve is normal in structure and function. There is mild tricuspid regurgitation. Right ventricular systolic pressure is normal. Aortic Valve There is mild aortic sclerosis.;. No hemodynamically significant valvular aortic stenosis. No aortic regurgitation is present. Pulmonic Valve The pulmonic valve is not well seen, but is grossly normal. There is no pulmonic valvular stenosis. T here is no pulmonic valvular regurgitation. Great Vessels The aortic root is normal size. Pericardium/Pleura Small pericardial effusion (<1cm). There are no echocardiographic indications of cardiac tamponade. Interpretation Summary Mild basal septal hypertrophy. Left ventricular systolic function is normal. Ejection Fraction = 55-60%. The transmitral spectral Doppler flow pattern is suggestive of impaired LV relaxation. There is trace to mild mitral regurgitation. There is mild tricuspid regurgitation. Right ventricular systolic pressure is normal. There is mild aortic sclerosis.; No hemodynamically significant valvular aortic stenosis. Small pericardial effusion (<1cm) There are no echocardiographic indications of cardiac tamponade. MD Benavidez *Nikita 08/05/2019 01:52 PM
--- NOTE | 2019-08-05 14:35 | EKG ---
Test Reason : Blood Pressure : / mmHG Vent. Rate : 078 BPM Atrial Rate : 086 BPM P-R Int : 464 ms QRS Dur : 090 ms QT Int : 364 ms P-R-T Axes : 000 001 046 degrees QTc Int : 414 ms SINUS RHYTHM with marked 1st degree AV block and Wenkebach ABNORMAL ECG Confirmed by JENNIE MIKE MD ([id number]) on 08/05/2019 2:35:12 PM Referred By: Confirmed By:JENNIE MIKE MD
--- NOTE | 2019-08-05 14:39 | EKG ---
Test Reason : Blood Pressure : / mmHG Vent. Rate : 066 BPM Atrial Rate : 101 BPM P-R Int : 000 ms QRS Dur : 094 ms QT Int : 416 ms P-R-T Axes : 000 033 055 degrees QTc Int : 436 ms NORMAL SINUS RHYTHM with marked 1st degree AV block and Wenkebach NONSPECIFIC ST ABNORMALITY Confirmed by JENNIE MIKE MD ([id number]) on 08/05/2019 2:39:04 PM Referred By: Confirmed By:JENNEI IMKE MD
--- NOTE | 2019-08-05 17:11 | CONSULT ---
Consult - text type - Consultation Consultation Note: PODIATRY: 68 y/o male see and evalutaed at bedside. patient was admitted with syncope. States he is feeling much better today though. States that he sees a oil heater installer across the street ; Dr. Sanchez; for a right 2nd digit superfical ulceration. States that he was started on oral antibiotics last week and was to have follow up with him today. States he feels it is getting better though. Denies any other complaints. O: Pedal pulses palpable, foot warm to touch, no signs of necrosis noted, 2nd digit with superficial ulceration, no probing, no erythema, no drainage, no edema, no signs of infection noted, grossly neuropathic A: 68 y/o male with diabetes with superficial right 2nd digit ulceration P: Evaluated and reviewed being followed by Dr. Sanchez as outpatient on PO abx digit stable, does not appear with infection at this time will need f/u with him as outpatient Thank you for this consult; can f/u as needed.
[2019-08-05] MEDS ORDERED: LISINOPRIL 20 MG TABLET (FP) PO SCH (22:00)
[2019-08-05] MEDS: SODIUM CHLORIDE 1,000 ML IV SCH (23:01)
[2019-08-06] MEDS: INSULIN SLIDING SCALE (NOVOLOG) 1 VIAL SQ SCH ×2 (06:03→12:04)
[2019-08-06 12:16] VITALS: TEMP 98.3
[2019-08-06 14:08] VITALS: BP 176/95; PULSE 120
--- NOTE | 2019-08-06 14:59 | DS ---
Physical Examination Vital Signs: Vital Signs Temperature 98.3 F 08/06/19 14:00 Pulse Rate 120 H 08/06/19 14:00 Respiratory Rate 20 08/06/19 14:00 Blood Pressure 176/95 H 08/06/19 14:00 O2 Sat by Pulse Oximetry (%) 100 08/06/19 02:00 Findings/Remarks: feels well no complaints Telemetry uneventful-. Denies chest pain or shortness of breath Constitutional: Yes: No Distress, Calm Eyes: Yes: Conjunctiva Clear Neck: Yes: Supple Cardiovascular: Yes: Regular Rate and Rhythm Respiratory: Yes: CTA Bilaterally Gastrointestinal: Yes: Soft Edema: No Neurological: Yes: WNL, Alert Psychiatric: Yes: Alert Labs: CBC, BMP 08/05/19 05:20 08/05/19 05:20 Discharge Summary Reason For Visit: ACUTE KIDNEY INJURY Hospital Course: admitted for syncopal episode. Workup was essentially negative. Likely vaso vagal. Stable for discharge. Follow-up in office in next couple of weeks Discussed in detail with patient as well as nursing staff. Medications reconciled. Continue antibiotics Patient in agreement Condition: Stable - Instructions Disposition: HOME - Home Medications Comprehensive Discharge Medication List: Ambulatory Orders Aspirin [ASA -] 325 mg PO DAILY 12/11/14 Labetalol HCl [Normodyne -] 200 mg PO BID 12/11/14 Cholecalciferol (Vitamin D3) [Vitamin D3] 50,000 unit PO ASDIR 07/10/16 Liraglutide [Victoza -] 1.8 mg SQ DAILY 07/10/16 Insulin Glargine,Hum.rec.anlog [Lantus] 32 unit SQ DAILY 10/19/18 Lisinopril [Prinivil] 20 mg PO HS 10/19/18 traZODone HCL [Trazodone HCl] 50 mg PO HS 10/19/18 Metformin HCl [Glucophage] 1,000 mg PO BID 10/20/18 Rosuvastatin [Crestor -] 20 mg PO HS #60 tablet 03/30/19 Ciprofloxacin [Cipro -] 500 mg PO Q12H 08/05/19 Clindamycin [Cleocin -] 300 mg PO TID 08/05/19
--- NOTE | 2019-08-09 11:03 | EKG ---
Test Reason : Blood Pressure : / mmHG Vent. Rate : 086 BPM Atrial Rate : 086 BPM P-R Int : 344 ms QRS Dur : 088 ms QT Int : 348 ms P-R-T Axes : -37 004 040 degrees QTc Int : 416 ms POOR DATA QUALITY, INTERPRETATION MAY BE ADVERSELY AFFECTED NORMAL SINUS RHYTHM WITH 1ST DEGREE A-V BLOCK CANNOT RULE OUT ANTERIOR INFARCT (CITED ON OR BEFORE 04-AUG-2019) ABNORMAL ECG WHEN COMPARED WITH ECG OF 04-AUG-2019 19:33, ECTOPIC ATRIAL RHYTHM HAS REPLACED SINUS RHYTHM Confirmed by Micah Evans ([id number]) on 08/09/2019 11:02:50 AM Referred By: Confirmed By:Micah Evans
== END 2019-08-06 17:36 | disposition home health service (06) | DRG 312 ==
LOC: JER 13:33 → JERBED 17:34 → J4W 23:03 → OBSVTOIN 08-05 11:46
PROVIDERS: ADMIT Internal Medicine; ATTEND Internal Medicine
DX: R55 Syncope and collapse (principal); N17.9 Acute kidney failure, unspecified; I10 Essential (primary) hypertension; E78.5 Hyperlipidemia, unspecified; E11.42 Type 2 diabetes mellitus with diabetic polyneuropathy; E86.0 Dehydration; E11.65 Type 2 diabetes mellitus with hyperglycemia; E11.621 Type 2 diabetes mellitus with foot ulcer; Z86.73 Personal history of transient ischemic attack (TIA), and cerebral infarction without residual deficits; Z79.4 Long term (current) use of insulin; L97.519 Non-pressure chronic ulcer of other part of right foot with unspecified severity
CPT/HCPCS: 36415; 70450-TC; 71045-TC-FY; 72125-TC; 80053; 82550; 82553; 82962; 83735; 84100; 84484; 85025; 93005; 93010; 93306-TC; 93880-TC; 99285-25; G0378; J7030

== ENCOUNTER 2019-10-24 18:53 | Inpatient (IN) | payer OTHER, BC ==
[2019-10-24] MEDS ORDERED: SODIUM CHLORIDE 500 ML IV STA ×2 (19:44→21:27)
[2019-10-24] MEDS ORDERED: INSULIN REGULAR HUMAN 100 UNITS/ML *VIAL IVPUSH ONE ×2 (19:45→21:38)
[2019-10-24] MEDS ORDERED: LISINOPRIL 10 MG TABLET (FP) PO ONE (19:53)
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
[2019-10-24] MEDS ORDERED: LISINOPRIL 5 MG TABLET (FP) ONE (20:14)
[2019-10-24 20:33] LABS: VENOUS PC02 52.9 mmHg (38-52); VENOUS PH 7.29 (7.31-7.41)
[2019-10-24 20:34] LABS: VENOUS PO2 < 49 mmHg (28-48)
[2019-10-24] MEDS ORDERED: LABETALOL HCL 5 MG/1 ML (100MG/20 ML VIAL) IVPUSH ONE (20:43)
[2019-10-24] MEDS ORDERED: LABETALOL HCL 5 MG/1 ML (200MG/40ML VIAL) IVPB ONE (20:48)
[2019-10-24 20:57] LABS: BASO % 0.5 % (0-2.0); EOS % 0.1 % (0-4.5); HEMATOCRIT 45.7 % (35.4-49); HEMOGLOBIN 14.8 GM/dL (11.7-16.9); LYMPH % 7.5 % (8-40); MCH 28.6 pg (25.7-33.7); MCHC 32.4 g/dl (32.0-35.9); MEAN CELL VOLUME 88.4 fl (80-96); MEAN PLT VOLUME 9.6 fl (7.5-11.1); MONO % 2.8 % (3.8-10.2); NEUT % 89.1 % (42.8-82.8); PLATELET COUNT 237 K/MM3 (134-434); RBC 5.18 M/mm3 (4.00-5.60); RDW 12.8 % (11.9-15.9); WHITE BLOOD COUNT 5.2 K/mm3 (4.0-10.0)
[2019-10-24 21:23] LABS: ALBUMIN 3.7 g/dl (3.4-5.0); ALK PHOS 179 U/L (45-117); ANION GAP 15 MMOL/L (8-16); BILIRUBIN,TOTAL 0.8 mg/dL (0.2-1); BLOOD UREA NITROGEN 34.2 mg/dL (7-18); CALCIUM 8.7 mg/dL (8.5-10.1); CHLORIDE 88 mmol/L (98-107); CO2 26 mmol/L (21-32); CREATININE 1.5 mg/dL (0.55-1.3); POTASSIUM 5.1 mmol/L (3.5-5.1); SGOT/AST 15 U/L (15-37); SGPT/ALT 25 U/L (13-61); SODIUM 128 mmol/L (136-145); TOT PROT 7.4 g/dl (6.4-8.2)
[2019-10-24 21:28] LABS: GLUCOSE,RANDOM 762 mg/dL (74-106)
[2019-10-24 22:41] LABS: URINE APPEARANCE CLEAR; URINE BILIRUBIN NEGATIVE (NEGATIVE); URINE COLOR YELLOW; URINE GLUCOSE (UA) 3+ (NEGATIVE); URINE KETONE 1+ (NEGATIVE); URINE LEUK ESTERASE NEGATIVE (NEGATIVE); URINE NITRITE NEGATIVE (NEGATIVE); URINE PROTEIN TRACE (NEGATIVE); URINE UROBILINOGEN 0.2 mg/dL (0.2-1.0)
[2019-10-24] MEDS ORDERED: LACTATED RINGERS SOLUTION 1,000 ML/1,000 ML INFUS.BAG IV STA (22:47)
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
[2019-10-25 01:01] LABS: INR 0.82 (0.83-1.09); PROTHROMBIN TIME (PATIENT) 9.7 SEC (9.7-13.0)
[2019-10-25 01:35] LABS: BLOOD UREA NITROGEN 31.3 mg/dL (7-18); CALCIUM 8.5 mg/dL (8.5-10.1); CREATININE 1.3 mg/dL (0.55-1.3); POTASSIUM 4.7 mmol/L (3.5-5.1)
[2019-10-25] MEDS ORDERED: INSULIN REGULAR 100 UNITS in SODIUM CHLORIDE 99 ML IVPB SCH (01:45)
[2019-10-25] MEDS ORDERED: INSULIN (NOVOLOG) ASPART 100 UNITS/ML 10ML VIAL SQ ONE ×3 (01:52→04:05)
[2019-10-25] MEDS ORDERED: SODIUM CHLORIDE 0.45%/POT 20 MEQ/1,000 ML INFUS.BAG IV SCH (02:00)
[2019-10-25 02:40] VITALS: BMI 23.0
[2019-10-25 02:41] LABS: COCAINE, UR NEGATIVE ng/ml (CUTOFF=300); METHADONE, UR NEGATIVE ng/ml (CUTOFF=300); OPIATES, URI NEGATIVE ng/ml (CUTOFF=300); PHENCYCLIDINE,URINE NEGATIVE ng/ml (CUTOFF=25); URINE AMPHETAMINES NEGATIVE ng/ml (CUTOFF=500); URINE BARBITURATES NEGATIVE ng/ml (CUTOFF=200); URINE BENZODIAZEPINES NEGATIVE ng/ml (CUTOFF=200)
[2019-10-25 03:47] LABS: BLOOD UREA NITROGEN 29.1 mg/dL (7-18); CALCIUM 8.7 mg/dL (8.5-10.1); CREATININE 1.2 mg/dL (0.55-1.3); POTASSIUM 4.8 mmol/L (3.5-5.1)
[2019-10-25 06:29] LABS: BASO % 0.6 % (0-2.0); EOS % 0.6 % (0-4.5); HEMATOCRIT 39.4 % (35.4-49); HEMOGLOBIN 13.1 GM/dL (11.7-16.9); LYMPH % 20.8 % (8-40); MCH 28.6 pg (25.7-33.7); MCHC 33.2 g/dl (32.0-35.9); MEAN CELL VOLUME 86.3 fl (80-96); MONO % 6.2 % (3.8-10.2); NEUT % 71.8 % (42.8-82.8); PLATELET COUNT 233 K/MM3 (134-434); RBC 4.57 M/mm3 (4.00-5.60); RDW 12.8 % (11.9-15.9); WHITE BLOOD COUNT 6.2 K/mm3 (4.0-10.0)
[2019-10-25 06:44] LABS: BLOOD UREA NITROGEN 27.2 mg/dL (7-18); CALCIUM 8.6 mg/dL (8.5-10.1); CREATININE 1.2 mg/dL (0.55-1.3); MAGNESIUM 2.4 mg/dL (1.8-2.4); PHOSPHOROUS 2.1 mg/dL (2.5-4.9); POTASSIUM 3.8 mmol/L (3.5-5.1)
[2019-10-25] MEDS ORDERED: INSULIN SLIDING SCALE (NOVOLOG) 1 VIAL SQ SCH (07:30)
[2019-10-25] MEDS ORDERED: NAPH,MB-DB/K PH,MBDB POWDER PACKET PO ONE (08:01)
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
[2019-10-25] MEDS: SODIUM CHLORIDE 0.45% 1,000 ML IV SCH (08:25)
[2019-10-25] MEDS: INSULIN SLIDING SCALE (NOVOLOG) 1 VIAL SQ SCH ×5 (08:25→21:25)
--- NOTE | 2019-10-25 09:07 | EKG ---
Test Reason : Blood Pressure : / mmHG Vent. Rate : 088 BPM Atrial Rate : 088 BPM P-R Int : 262 ms QRS Dur : 098 ms QT Int : 370 ms P-R-T Axes : 000 017 037 degrees QTc Int : 447 ms SINUS RHYTHM WITH 1ST DEGREE A-V BLOCK OTHERWISE NORMAL ECG WHEN COMPARED WITH ECG OF 04-AUG-2019 23:39, NO SIGNIFICANT CHANGE WAS FOUND Confirmed by Shashi Rutherford MD ([id number]) on 10/25/2019 9:06:42 AM Referred By: Confirmed By:Shashi Rutherford MD
[2019-10-25] MEDS: HEPARIN NA (PORCINE) 5,000 UNITS/ML 1ML VIAL SQ SCH ×2 (09:31→21:23)
[2019-10-25] MEDS: LABETALOL HCL 200 MG TABLET (FP) PO SCH ×2 (09:31→21:23)
--- NOTE | 2019-10-25 11:04 | PN ---
Progress Note (short form) - Note Progress Note: Admitted in ICu for hyperosmolar state /uncontrolled blood sugars- on iv fluids BGM now 180's No distress not confused, he is oriented at baseline mentation Vital Signs - 24 hr 10/24/19 10/24/19 10/24/19 19:26 20:23 20:54 Temperature 97.8 F Pulse Rate 93 H Pulse Rate [ 90 Radial] Respiratory 16 18 Rate Blood Pressure 190/124 H Blood Pressure 201/106 H 182/102 H [Left Arm] O2 Sat by Pulse 95 99 Oximetry (%) 10/24/19 10/24/19 10/25/19 21:06 22:39 00:42 Temperature Pulse Rate Pulse Rate [ 86 83 Radial] Respiratory 18 18 Rate Blood Pressure Blood Pressure 145/85 141/88 [Left Arm] O2 Sat by Pulse 99 99 99 Oximetry (%) 10/25/19 10/25/19 10/25/19 00:45 02:24 04:00 Temperature 98.1 F Pulse Rate 88 86 Pulse Rate [ 86 Radial] Respiratory 17 16 16 Rate Blood Pressure 159/87 132/77 Blood Pressure 141/83 [Left Arm] O2 Sat by Pulse 99 99 Oximetry (%) 10/25/19 10/25/19 10/25/19 06:00 09:00 10:00 Temperature 98.2 F 100.4 F H Pulse Rate 83 79 Pulse Rate [ Radial] Respiratory 14 19 Rate Blood Pressure 126/77 120/71 Blood Pressure [Left Arm] O2 Sat by Pulse 99 Oximetry (%) Current Medications Generic Name Dose Route Start Last Admin Trade Name Freq PRN Reason Stop Dose Admin Chlorhexidine Gluconate 1 applic 10/25/19 22:00 Hibiclens For Decolonization - TP HS RAMIN Heparin Sodium (Porcine) 5,000 unit 10/25/19 10:00 10/25/19 09:31 Heparin - SQ 5,000 unit BID RAMIN Administration Sodium Chloride 1,000 mls @ 125 mls/hr 10/25/19 08:00 10/25/19 08:25 1/2 Normal Saline IV 125 mls/hr ASDIR RAMIN Administration Insulin Aspart 1 vial 10/25/19 07:30 10/25/19 10:24 Novolog Vial Sliding Scale - SQ 2 units Q4HPO RAMIN Administration Protocol Labetalol HCl 200 mg 10/25/19 10:00 10/25/19 09:31 Normodyne - PO 200 mg BID [facility] Administration Mupirocin 1 applic 10/25/19 10:00 Bactroban Ointment (For Decolonization) - NS 10/30/19 09:59 BID [facility] Rosuvastatin Calcium 20 mg 10/25/19 22:00 Crestor - PO HS [facility] Laboratory Results - last 24 hr 10/24/19 10/24/19 10/24/19 19:27 20:00 20:00 WBC RBC Hgb Hct MCV MCH MCHC RDW Plt Count MPV Absolute Neuts (auto) Neutrophils % Lymphocytes % Monocytes % Eosinophils % Basophils % Nucleated RBC % PT with INR INR VBG pH 7.29 L POC VBG pCO2 52.9 H POC VBG pO2 < 49 H VBG HCO3 24.9 VBG O2 Sat (Sully) 53.3 L VBG Base Excess -2.1 L Sodium Potassium Chloride Carbon Dioxide Anion Gap BUN Creatinine Est GFR (CKD-EPI)AfAm Est GFR (CKD-EPI)NonAf POC Glucometer > 600 Random Glucose Lactic Acid 1.2 Calcium Phosphorus Magnesium Total Bilirubin AST ALT Alkaline Phosphatase Creatine Kinase Troponin I Total Protein Albumin Beta-Hydroxybutyrate Urine Color Urine Appearance Urine pH Ur Specific [place] Urine Protein Urine Glucose (UA) Urine Ketones Urine Blood Urine Nitrite Urine Bilirubin Urine Urobilinogen Ur Leukocyte Esterase Opiates Screen Methadone Screen Barbiturate Screen Phencyclidine Screen Ur Amphetamines Screen MDMA (Ecstasy) Screen Benzodiazepines Screen Cocaine Screen U Marijuana (THC) Screen Alcohol, Quantitative Influenza A (Rapid) Influenza B (Rapid) 10/24/19 10/24/19 10/24/19 20:15 20:17 21:02 WBC 5.2 RBC 5.18 Hgb 14.8 Hct 45.7 D MCV 88.4 MCH 28.6 MCHC 32.4 RDW 12.8 Plt Count 237 MPV 9.6 D Absolute Neuts (auto) 4.6 Neutrophils % 89.1 H D Lymphocytes % 7.5 L D Monocytes % 2.8 L Eosinophils % 0.1 D Basophils % 0.5 Nucleated RBC % 0 PT with INR INR VBG pH POC VBG pCO2 POC VBG pO2 VBG HCO3 VBG O2 Sat (Sully) VBG Base Excess Sodium 128 L Potassium 5.1 Chloride 88 L Carbon Dioxide 26 Anion Gap 15 BUN 34.2 H Creatinine 1.5 H Est GFR (CKD-EPI)AfAm 55.04 Est GFR (CKD-EPI)NonAf 47.49 POC Glucometer > 600 Random Glucose 762 H* Lactic Acid Calcium 8.7 Phosphorus Magnesium Total Bilirubin 0.8 AST 15 ALT 25 Alkaline Phosphatase 179 H Creatine Kinase 74 Troponin I < 0.02 Total Protein 7.4 Albumin 3.7 Beta-Hydroxybutyrate 40.6 H Urine Color Urine Appearance Urine pH Ur Specific [place] Urine Protein Urine Glucose (UA) Urine Ketones Urine Blood Urine Nitrite Urine Bilirubin Urine Urobilinogen Ur Leukocyte Esterase Opiates Screen Methadone Screen Barbiturate Screen Phencyclidine Screen Ur Amphetamines Screen MDMA (Ecstasy) Screen Benzodiazepines Screen Cocaine Screen U Marijuana (THC) Screen Alcohol, Quantitative Influenza A (Rapid) Influenza B (Rapid) 10/24/19 10/24/19 10/25/19 22:30 22:31 00:00 WBC RBC Hgb Hct MCV MCH MCHC RDW Plt Count MPV Absolute Neuts (auto) Neutrophils % Lymphocytes % Monocytes % Eosinophils % Basophils % Nucleated RBC % PT with INR INR VBG pH POC VBG pCO2 POC VBG pO2 VBG HCO3 VBG O2 Sat (Sully) VBG Base Excess Sodium 131 L Potassium 4.7 Chloride 94 L Carbon Dioxide 24 Anion Gap 14 BUN 31.3 H Creatinine 1.3 Est GFR (CKD-EPI)AfAm 65.44 Est GFR (CKD-EPI)NonAf 56.46 POC Glucometer 520 Random Glucose 484 H* Lactic Acid Calcium 8.5 Phosphorus Magnesium Total Bilirubin AST ALT Alkaline Phosphatase Creatine Kinase Troponin I Total Protein Albumin Beta-Hydroxybutyrate Urine Color Yellow Urine Appearance Clear Urine pH 5.0 Ur Specific [place] 1.026 Urine Protein Trace Urine Glucose (UA) 3+ H Urine Ketones 1+ H Urine Blood Negative Urine Nitrite Negative Urine Bilirubin Negative Urine Urobilinogen 0.2 Ur Leukocyte Esterase Negative Opiates Screen Methadone Screen Barbiturate Screen Phencyclidine Screen Ur Amphetamines Screen MDMA (Ecstasy) Screen Benzodiazepines Screen Cocaine Screen U Marijuana (THC) Screen Alcohol, Quantitative Influenza A (Rapid) Influenza B (Rapid) 10/25/19 10/25/19 10/25/19 00:22 00:30 01:30 WBC RBC Hgb Hct MCV MCH MCHC RDW Plt Count MPV Absolute Neuts (auto) Neutrophils % Lymphocytes % Monocytes % Eosinophils % Basophils % Nucleated RBC % PT with INR 9.70 INR 0.82 L VBG pH POC VBG pCO2 POC VBG pO2 VBG HCO3 VBG O2 Sat (Sully) VBG Base Excess Sodium Potassium Chloride Carbon Dioxide Anion Gap BUN Creatinine Est GFR (CKD-EPI)AfAm Est GFR (CKD-EPI)NonAf POC Glucometer 475 456 Random Glucose Lactic Acid Calcium Phosphorus Magnesium Total Bilirubin AST ALT Alkaline Phosphatase Creatine Kinase Troponin I Total Protein Albumin Beta-Hydroxybutyrate Urine Color Urine Appearance Urine pH Ur Specific [place] Urine Protein Urine Glucose (UA) Urine Ketones Urine Blood Urine Nitrite Urine Bilirubin Urine Urobilinogen Ur Leukocyte Esterase Opiates Screen Methadone Screen Barbiturate Screen Phencyclidine Screen Ur Amphetamines Screen MDMA (Ecstasy) Screen Benzodiazepines Screen Cocaine Screen U Marijuana (THC) Screen Alcohol, Quantitative Influenza A (Rapid) Influenza B (Rapid) 10/25/19 10/25/19 10/25/19 01:45 02:00 02:30 WBC RBC Hgb Hct MCV MCH MCHC RDW Plt Count MPV Absolute Neuts (auto) Neutrophils % Lymphocytes % Monocytes % Eosinophils % Basophils % Nucleated RBC % PT with INR INR VBG pH POC VBG pCO2 POC VBG pO2 VBG HCO3 VBG O2 Sat (Sully) VBG Base Excess Sodium 134 L Potassium 4.8 Chloride 98 Carbon Dioxide 19 L Anion Gap 17 H BUN 29.1 H Creatinine 1.2 Est GFR (CKD-EPI)AfAm 72.09 Est GFR (CKD-EPI)NonAf 62.20 POC Glucometer Random Glucose 441 H* Lactic Acid Calcium 8.7 Phosphorus Magnesium Total Bilirubin AST ALT Alkaline Phosphatase Creatine Kinase Troponin I Total Protein Albumin Beta-Hydroxybutyrate Urine Color Urine Appearance Urine pH Ur Specific [place] Urine Protein Urine Glucose (UA) Urine Ketones Urine Blood Urine Nitrite Urine Bilirubin Urine Urobilinogen Ur Leukocyte Esterase Opiates Screen Negative Methadone Screen Negative Barbiturate Screen Negative Phencyclidine Screen Negative Ur Amphetamines Screen Negative MDMA (Ecstasy) Screen Negative Benzodiazepines Screen Negative Cocaine Screen Negative U Marijuana (THC) Screen Negative Alcohol, Quantitative < 3 Influenza A (Rapid) Influenza B (Rapid) 10/25/19 10/25/19 10/25/19 02:48 03:45 05:08 WBC RBC Hgb Hct MCV MCH MCHC RDW Plt Count MPV Absolute Neuts (auto) Neutrophils % Lymphocytes % Monocytes % Eosinophils % Basophils % Nucleated RBC % PT with INR INR VBG pH POC VBG pCO2 POC VBG pO2 VBG HCO3 VBG O2 Sat (Sully) VBG Base Excess Sodium Potassium Chloride Carbon Dioxide Anion Gap BUN Creatinine Est GFR (CKD-EPI)AfAm Est GFR (CKD-EPI)NonAf POC Glucometer 399 421 332 Random Glucose Lactic Acid Calcium Phosphorus Magnesium Total Bilirubin AST ALT Alkaline Phosphatase Creatine Kinase Troponin I Total Protein Albumin Beta-Hydroxybutyrate Urine Color Urine Appearance Urine pH Ur Specific [place] Urine Protein Urine Glucose (UA) Urine Ketones Urine Blood Urine Nitrite Urine Bilirubin Urine Urobilinogen Ur Leukocyte Esterase Opiates Screen Methadone Screen Barbiturate Screen Phencyclidine Screen Ur Amphetamines Screen MDMA (Ecstasy) Screen Benzodiazepines Screen Cocaine Screen U Marijuana (THC) Screen Alcohol, Quantitative Influenza A (Rapid) Influenza B (Rapid) 10/25/19 10/25/19 10/25/19 05:25 05:25 05:51 WBC 6.2 RBC 4.57 Hgb 13.1 Hct 39.4 MCV 86.3 MCH 28.6 MCHC 33.2 RDW 12.8 Plt Count 233 MPV 9.0 Absolute Neuts (auto) 4.4 Neutrophils % 71.8 Lymphocytes % 20.8 D Monocytes % 6.2 D Eosinophils % 0.6 D Basophils % 0.6 Nucleated RBC % 0 PT with INR INR VBG pH POC VBG pCO2 POC VBG pO2 VBG HCO3 VBG O2 Sat (Sully) VBG Base Excess Sodium 135 L Potassium 3.8 Chloride 99 Carbon Dioxide 25 Anion Gap 11 BUN 27.2 H Creatinine 1.2 Est GFR (CKD-EPI)AfAm 72.09 Est GFR (CKD-EPI)NonAf 62.20 POC Glucometer 301 Random Glucose 313 H Lactic Acid Calcium 8.6 Phosphorus 2.1 L Magnesium 2.4 Total Bilirubin AST ALT Alkaline Phosphatase Creatine Kinase Troponin I Total Protein Albumin Beta-Hydroxybutyrate Urine Color Urine Appearance Urine pH Ur Specific [place] Urine Protein Urine Glucose (UA) Urine Ketones Urine Blood Urine Nitrite Urine Bilirubin Urine Urobilinogen Ur Leukocyte Esterase Opiates Screen Methadone Screen Barbiturate Screen Phencyclidine Screen Ur Amphetamines Screen MDMA (Ecstasy) Screen Benzodiazepines Screen Cocaine Screen U Marijuana (THC) Screen Alcohol, Quantitative Influenza A (Rapid) Influenza B (Rapid) 10/25/19 10/25/19 10/25/19 06:57 07:50 08:10 WBC RBC Hgb Hct MCV MCH MCHC RDW Plt Count MPV Absolute Neuts (auto) Neutrophils % Lymphocytes % Monocytes % Eosinophils % Basophils % Nucleated RBC % PT with INR INR VBG pH POC VBG pCO2 POC VBG pO2 VBG HCO3 VBG O2 Sat (Sully) VBG Base Excess Sodium Potassium Chloride Carbon Dioxide Anion Gap BUN Creatinine Est GFR (CKD-EPI)AfAm Est GFR (CKD-EPI)NonAf POC Glucometer 243 189 Random Glucose Lactic Acid Calcium Phosphorus Magnesium Total Bilirubin AST ALT Alkaline Phosphatase Creatine Kinase Troponin I Total Protein Albumin Beta-Hydroxybutyrate Urine Color Urine Appearance Urine pH Ur Specific [place] Urine Protein Urine Glucose (UA) Urine Ketones Urine Blood Urine Nitrite Urine Bilirubin Urine Urobilinogen Ur Leukocyte Esterase Opiates Screen Methadone Screen Barbiturate Screen Phencyclidine Screen Ur Amphetamines Screen MDMA (Ecstasy) Screen Benzodiazepines Screen Cocaine Screen U Marijuana (THC) Screen Alcohol, Quantitative Influenza A (Rapid) Negative Influenza B (Rapid) Negative 10/25/19 10:21 WBC RBC Hgb Hct MCV MCH MCHC RDW Plt Count MPV Absolute Neuts (auto) Neutrophils % Lymphocytes % Monocytes % Eosinophils % Basophils % Nucleated RBC % PT with INR INR VBG pH POC VBG pCO2 POC VBG pO2 VBG HCO3 VBG O2 Sat (Sully) VBG Base Excess Sodium Potassium Chloride Carbon Dioxide Anion Gap BUN Creatinine Est GFR (CKD-EPI)AfAm Est GFR (CKD-EPI)NonAf POC Glucometer 189 Random Glucose Lactic Acid Calcium Phosphorus Magnesium Total Bilirubin AST ALT Alkaline Phosphatase Creatine Kinase Troponin I Total Protein Albumin Beta-Hydroxybutyrate Urine Color Urine Appearance Urine pH Ur Specific [place] Urine Protein Urine Glucose (UA) Urine Ketones Urine Blood Urine Nitrite Urine Bilirubin Urine Urobilinogen Ur Leukocyte Esterase Opiates Screen Methadone Screen Barbiturate Screen Phencyclidine Screen Ur Amphetamines Screen MDMA (Ecstasy) Screen Benzodiazepines Screen Cocaine Screen U Marijuana (THC) Screen Alcohol, Quantitative Influenza A (Rapid) Influenza B (Rapid) S1 S2 RRR Lungs clear Abd-soft, NT no edema A/P Hyperosmolar state uncontrolled DM acute renal failure HTN -- iv fluids -- Endocrinology eval -- pt non complaints with meds-- >used to have insulin pump but now using longer acting insulin -- dietary eval -- OOD -- monitor renal function -- ok to transfer to the floors -- heparin sc for DVT prophylaxis Problem List - Problems (1) Hyperosmolality due to uncontrolled type 1 diabetes mellitus Code(s): E10.69 - TYPE 1 DIABETES MELLITUS WITH OTHER SPECIFIED COMPLICATION; E10.65 - TYPE 1 DIABETES MELLITUS WITH HYPERGLYCEMIA (2) Hyperglycemia Code(s): R73.9 - HYPERGLYCEMIA, UNSPECIFIED (3) Diabetes Code(s): E11.9 - TYPE 2 DIABETES MELLITUS WITHOUT COMPLICATIONS (4) HLD (hyperlipidemia) Code(s): E78.5 - HYPERLIPIDEMIA, UNSPECIFIED (5) HTN (hypertension) Code(s): I10 - ESSENTIAL (PRIMARY) HYPERTENSION
--- NOTE | 2019-10-25 11:28 | PN ---
Teaching Attending Note Name of Resident: Ryley Azul ATTENDING PHYSICIAN STATEMENT I saw and evaluated the patient. I reviewed the resident's note and discussed the case with the resident. I agree with the resident's findings and plan as documented. SUBJECTIVE: Pt seen and examined in the ICU. Anion gap closed. Off insulin gtt. Tolerating PO. Denies nausea, vomiting, abdominal pain. OBJECTIVE: Vital Signs Period Temp Pulse Resp BP Sys/Duron Pulse Ox Last 24 Hr 97.8 F-100.4 F 79-93 14-19 120-201/71-124 95-99 Intake & Output 10/22/19 10/23/19 10/24/19 10/25/19 23:59 23:59 23:59 23:59 Intake Total 450 Balance 450 Weight 72.575 kg 70.806 kg Gen: NAD at rest Heart: RRR Lung: decreased breath sounds at the bases Abd: soft, nontender Ext: no edema CBC, BMP 10/25/19 05:25 10/25/19 05:25 Active Medications Chlorhexidine Gluconate (Hibiclens For Decolonization -) 1 applic TP HS RAMIN Heparin Sodium (Porcine) (Heparin -) 5,000 unit SQ BID RAMIN Last Admin: 10/25/19 09:31 Dose: 5,000 unit Sodium Chloride (1/2 Normal Saline) 1,000 mls @ 125 mls/hr IV ASDIR RAMIN Last Admin: 10/25/19 08:25 Dose: 125 mls/hr Insulin Aspart (Novolog Vial Sliding Scale -) 1 vial SQ Q4HPO [facility]; Protocol Last Admin: 10/25/19 10:24 Dose: 2 units Labetalol HCl (Normodyne -) 200 mg PO BID RAMIN Last Admin: 10/25/19 09:31 Dose: 200 mg Mupirocin (Bactroban Ointment (For Decolonization) -) 1 applic NS BID RAMIN Stop: 10/30/19 09:59 Rosuvastatin Calcium (Crestor -) 20 mg PO HS [facility] ASSESSMENT AND PLAN: Diabetic Ketoacidosis resolving HTN DM Hyperlipidemia - glucose control - continue IVF - PO as tolerated - DVT prophylaxis - can monitor on floor
[2019-10-25] MEDS: MUPIROCIN 2% TOPICAL OINTMENT FOR DECOLONIZATION NS SCH ×2 (15:17→23:40)
[2019-10-25 16:45] LABS: BLOOD UREA NITROGEN 25.8 mg/dL (7-18); CALCIUM 8.4 mg/dL (8.5-10.1); CREATININE 1.3 mg/dL (0.55-1.3); POTASSIUM 3.9 mmol/L (3.5-5.1)
[2019-10-25] MEDS ORDERED: ROSUVASTATIN CA 20 MG TABLET (FP) PO SCH (22:00)
[2019-10-25] MEDS ORDERED: INSULIN (LEVEMIR) 100 UNITS/ML UNITS SQ ONE (22:00)
[2019-10-25] MEDS ORDERED: CHLORHEXIDINE GLUCONATE 4% CLEANSER FOR DECOLONIZATION TP SCH (22:00)
[2019-10-25] MEDS ORDERED: MUPIROCIN 2% TOPICAL OINTMENT 22 GM TUBE TP ONE (23:03)
[2019-10-26] MEDS: SODIUM CHLORIDE 0.45% 1,000 ML IV SCH ×2 (02:00→08:05)
[2019-10-26] MEDS: INSULIN SLIDING SCALE (NOVOLOG) 1 VIAL SQ SCH ×4 (02:23→14:17)
[2019-10-26 07:45] LABS: BASO % 1.1 % (0-2.0); HEMATOCRIT 36.4 % (35.4-49); HEMOGLOBIN 12.4 GM/dL (11.7-16.9); LYMPH % 36.7 % (8-40); MCH 29.3 pg (25.7-33.7); MEAN CELL VOLUME 86.3 fl (80-96); MEAN PLT VOLUME 8.9 fl (7.5-11.1); MONO % 8.1 % (3.8-10.2); NEUT % 52.1 % (42.8-82.8); PLATELET COUNT 204 K/MM3 (134-434); RBC 4.22 M/mm3 (4.00-5.60); RDW 12.8 % (11.9-15.9); WHITE BLOOD COUNT 4.2 K/mm3 (4.0-10.0)
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
[2019-10-26 08:57] LABS: ALBUMIN 2.8 g/dl (3.4-5.0); BILIRUBIN,TOTAL 0.4 mg/dL (0.2-1); BLOOD UREA NITROGEN 17.8 mg/dL (7-18); CALCIUM 8.2 mg/dL (8.5-10.1); POTASSIUM 3.9 mmol/L (3.5-5.1); TOT PROT 5.3 g/dl (6.4-8.2)
[2019-10-26] MEDS: MUPIROCIN 2% TOPICAL OINTMENT FOR DECOLONIZATION NS SCH (09:18)
[2019-10-26] MEDS: HEPARIN NA (PORCINE) 5,000 UNITS/ML 1ML VIAL SQ SCH (09:19)
[2019-10-26] MEDS: LABETALOL HCL 200 MG TABLET (FP) PO SCH (09:19)
--- NOTE | 2019-10-26 10:40 | EKG ---
Test Reason : Blood Pressure : / mmHG Vent. Rate : 074 BPM Atrial Rate : 074 BPM P-R Int : 206 ms QRS Dur : 096 ms QT Int : 388 ms P-R-T Axes : 261 -04 -10 degrees QTc Int : 430 ms UNUSUAL P AXIS, POSSIBLE ECTOPIC ATRIAL RHYTHM WITH UNDETERMINED RHYTHM IRREGULARITY ABNORMAL ECG WHEN COMPARED WITH ECG OF 24-OCT-2019 20:22, ECTOPIC ATRIAL RHYTHM HAS REPLACED SINUS RHYTHM NONSPECIFIC T WAVE ABNORMALITY NOW EVIDENT IN INFERIOR LEADS Confirmed by LUZMARIA RAMIREZ MD ([id number]) on 10/26/2019 10:40:18 AM Referred By: Shiv PASTOR Confirmed By:LUZMARIA RAMIREZ MD
--- NOTE | 2019-10-26 12:07 | PN ---
Teaching Attending Note Name of Resident: Ryley Azul ATTENDING PHYSICIAN STATEMENT I saw and evaluated the patient. I reviewed the resident's note and discussed the case with the resident. I agree with the resident's findings and plan as documented. SUBJECTIVE: Pt seen and examined in the ICU. Bradycardic overnight while sleeping. States he has SEGUN. OBJECTIVE: Vital Signs Period Temp Pulse Resp BP Sys/Duron Pulse Ox Last 24 Hr 97.4 F-98.3 F 75-87 12- 94-162/60-88 99-99 Intake & Output 10/23/19 10/24/19 10/25/19 10/26/19 23:59 23:59 23:59 23:59 Intake Total 2530 1600 Balance 2530 1600 Weight 72.575 kg 70.806 kg 75.807 kg Gen: NAD at rest Heart: RRR Lung: decreased breath sounds at the bases Abd: soft, nontender Ext: no edema CBC, BMP 10/26/19 05:40 10/26/19 05:40 Active Medications Chlorhexidine Gluconate (Hibiclens For Decolonization -) 1 applic TP HS [facility] Last Admin: 10/25/19 21:24 Dose: 1 applic Heparin Sodium (Porcine) (Heparin -) 5,000 unit SQ BID [facility] Last Admin: 10/26/19 09:19 Dose: 5,000 unit Insulin Aspart (Novolog Vial Sliding Scale -) 1 vial SQ Q4HPO [facility]; Protocol Last Admin: 10/26/19 10:12 Dose: 6 units Insulin Detemir (Levemir Vial) 22 units SQ HS [facility] Labetalol HCl (Normodyne -) 200 mg PO BID [facility] Last Admin: 10/26/19 09:19 Dose: 200 mg Mupirocin (Bactroban Ointment (For Decolonization) -) 1 applic NS BID RAMIN Stop: 10/30/19 09:59 Last Admin: 10/26/19 09:18 Dose: 1 applic Rosuvastatin Calcium (Crestor -) 20 mg PO HS [facility] Last Admin: 10/25/19 21:23 Dose: 20 mg ASSESSMENT AND PLAN: Diabetic Ketoacidosis resolving HTN DM Hyperlipidemia Obstructive Sleep Apnea - glucose control - PO as tolerated - d/c IVF - CPAP 4cm at night - DVT prophylaxis - can monitor on floor or d/c home
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
[2019-10-26 14:20] VITALS: BP 140/80; PULSE 78; TEMP 98
[2019-10-26] MEDS ORDERED: INSULIN (LEVEMIR) 100 UNITS/ML UNITS SQ SCH (22:00)
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
== END 2019-10-26 14:30 | disposition home or self-care (01) | DRG 637 ==
LOC: JER 18:53 → JERBED 23:54 → JICU 10-25 02:11
PROVIDERS: ADMIT Internal Medicine; ATTEND Internal Medicine
DX: E11.10 Type 2 diabetes mellitus with ketoacidosis without coma (principal); G93.41 Metabolic encephalopathy; E87.1 Hypo-osmolality and hyponatremia; I16.1 Hypertensive emergency; E87.2 Acidosis; N17.9 Acute kidney failure, unspecified; I31.3 Pericardial effusion (noninflammatory); I10 Essential (primary) hypertension; E78.5 Hyperlipidemia, unspecified; E11.42 Type 2 diabetes mellitus with diabetic polyneuropathy; E11.65 Type 2 diabetes mellitus with hyperglycemia; I25.10 Atherosclerotic heart disease of native coronary artery without angina pectoris; I12.9 Hypertensive chronic kidney disease with stage 1 through stage 4 chronic kidney disease, or unspecified chronic kidney disease; E11.22 Type 2 diabetes mellitus with diabetic chronic kidney disease; N18.2 Chronic kidney disease, stage 2 (mild); F03.90 Unspecified dementia, unspecified severity, without behavioral disturbance, psychotic disturbance, mood disturbance, and anxiety; B35.1 Tinea unguium; R00.1 Bradycardia, unspecified; Z91.14 Patient's other noncompliance with medication regimen; Z86.73 Personal history of transient ischemic attack (TIA), and cerebral infarction without residual deficits; V49.9XXA Car occupant (driver) (passenger) injured in unspecified traffic accident, initial encounter; Y92.89 Other specified places as the place of occurrence of the external cause
CPT/HCPCS: 36415; 70450-TC; 71045-TC-FY; 72125-TC; 80048; 80053; 80307; 81003; 82010; 82550; 82803; 82962; 83036; 83605; 83735; 84100; 84484; 85025; 85610; 87086; 87804; 93005; 93010; 99285-25; J1644; J3480

== ENCOUNTER 2022-01-27 02:55 | Inpatient (IN) | payer OTHER, BC ==
[2022-01-27] MEDS ORDERED: SODIUM CHLORIDE 0.9% 500 ML INFUS.BAG IV ONE ×2 (03:09→04:20)
[2022-01-27] MEDS ORDERED: LORazepam 2 MG/ML SDV VIAL IVPUSH ONE (03:29)
[2022-01-27 03:48] LABS: EOS % 0.1 % (0-4.5); HEMATOCRIT 42.6 % (35.4-49); HEMOGLOBIN 13.8 GM/dL (11.7-16.9); LYMPH % 8.4 % (8-40); MCH 28.7 pg (25.7-33.7); MCHC 32.4 g/dl (32.0-35.9); MEAN CELL VOLUME 88.5 fl (80-96); MEAN PLT VOLUME 9.1 fl (7.5-11.1); MONO % 8.8 % (3.8-10.2); NEUT % 81.7 % (42.8-82.8); PLATELET COUNT 272 10^3/uL (134-434); RBC 4.81 M/mm3 (4.00-5.60); RDW 13.4 % (11.9-15.9); WHITE BLOOD COUNT 5.4 K/mm3 (4.0-10.0)
[2022-01-27 04:08] LABS: CHLORIDE 85 mmol/L (98-107); INR 0.87 (0.83-1.09); SODIUM 124 mmol/L (136-145)
[2022-01-27 04:10] LABS: ACTIVATED PTT 26.7 SECONDS (25.2-36.5); ANION GAP 15 MMOL/L (8-16); BLOOD UREA NITROGEN 25.6 mg/dL (7-18); CALCIUM 8.6 mg/dL (8.5-10.1); CO2 25 mmol/L (21-32)
[2022-01-27 04:11] LABS: ALBUMIN 3.6 g/dl (3.4-5.0)
[2022-01-27 04:13] LABS: CREATININE 1.8 mg/dL (0.55-1.3); SGPT/ALT 21 U/L (13-61)
[2022-01-27 04:14] LABS: SGOT/AST 19 U/L (15-37)
[2022-01-27 04:15] LABS: BILIRUBIN,TOTAL 0.8 mg/dL (0.2-1); TOT PROT 7.6 g/dl (6.4-8.2)
[2022-01-27 04:16] LABS: ALK PHOS 300 U/L (45-117)
[2022-01-27 04:40] LABS: MAGNESIUM 2.2 mg/dL (1.8-2.4)
[2022-01-27 04:44] LABS: PHOSPHOROUS 4.6 mg/dL (2.5-4.9)
[2022-01-27] MEDS ORDERED: INSULIN REGULAR 100 UNITS in SODIUM CHLORIDE 99 ML IVPB SCH (04:45)
[2022-01-27 04:52] LABS: VENOUS BASE EXCESS -3.7 mmol/L (-2-2); VENOUS O2 SATURATION 87.7 % (70-80); VENOUS PCO2 44.5 mmHg (38-52); VENOUS PH 7.321 (7.310-7.410)
[2022-01-27 04:55] LABS: GLUCOSE,RANDOM 1033 mg/dL (74-106)
[2022-01-27] MEDS ORDERED: SODIUM CHLORIDE 0.45% 1,000 ML IV SCH (07:00)
[2022-01-27] MEDS ORDERED: SODIUM CHLORIDE 0.45%/POT 20 MEQ/1,000 ML INFUS.BAG IV SCH (07:15)
[2022-01-27] MEDS ORDERED: SODIUM CHLORIDE 1,000 ML IV SCH (07:15)
[2022-01-27 08:51] LABS: CREATININE, URINE RANDOM < 13.0 mg/dL (30-150)
[2022-01-27] MEDS ORDERED: MUPIROCIN 2% TOPICAL OINTMENT FOR DECOLONIZATION NS SCH ×2 (10:00→22:00)
[2022-01-27] MEDS ORDERED: HEPARIN NA (PORCINE) 5,000 UNITS/ML 1ML VIAL SQ SCH (10:00)
[2022-01-27 10:16] LABS: URINE APPEARANCE CLEAR; URINE BILIRUBIN NEGATIVE (NEGATIVE); URINE COLOR YELLOW; URINE GLUCOSE (UA) 3+ (NEGATIVE); URINE KETONE TRACE (NEGATIVE); URINE LEUK ESTERASE NEGATIVE (NEGATIVE); URINE NITRITE NEGATIVE (NEGATIVE); URINE PROTEIN 1+ (NEGATIVE); URINE UROBILINOGEN 0.2 mg/dL (0.2-1.0)
[2022-01-27] MEDS ORDERED: INSULIN SLIDING SCALE (NOVOLOG) 1 VIAL SQ SCH (11:00)
[2022-01-27] MEDS ORDERED: HEPARIN NA (PORCINE) 5,000 UNITS/ML 1ML VIAL ONE (11:11)
[2022-01-27] MEDS ORDERED: BENZTROPINE MESYLATE 0.5 MG TABLET (FP) PO SCH (11:15)
[2022-01-27 11:31] LABS: EPI CELLS 0.2 /uL (0-25.1); URINE BACTERIA 10.1 /uL (0-1359); URINE WBC 0.3 /uL (0-25.8)
[2022-01-27 12:05] LABS: CALCIUM 8.8 mg/dL (8.5-10.1)
[2022-01-27 12:06] LABS: BLOOD UREA NITROGEN 19.9 mg/dL (7-18)
[2022-01-27 12:09] LABS: CREATININE 1.3 mg/dL (0.55-1.3)
[2022-01-27 13:51] VITALS: BMI 23.6
[2022-01-27] MEDS: SODIUM CHLORIDE 0.45%/POT 20 MEQ/1,000 ML INFUS.BAG IV SCH (15:37)
[2022-01-27] MEDS: INSULIN SLIDING SCALE (NOVOLOG) 1 VIAL SQ SCH ×2 (17:16→21:17)
[2022-01-27] MEDS ORDERED: INSULIN (NOVOLOG) ASPART 100 UNITS/ML 10ML VIAL ONE (21:08)
[2022-01-27] MEDS: INSULIN (LEVEMIR) 100 UNITS/ML UNITS SQ SCH (21:17)
[2022-01-27] MEDS: HEPARIN NA (PORCINE) 5,000 UNITS/ML 1ML VIAL SQ SCH (21:22)
[2022-01-27] MEDS ORDERED: CHLORHEXIDINE GLUCONATE 4% CLEANSER FOR DECOLONIZATION TP SCH ×2 (22:00)
[2022-01-27] MEDS ORDERED: INSULIN (LEVEMIR) 100 UNITS/ML UNITS SQ SCH ×2 (22:00)
[2022-01-28] MEDS: INSULIN SLIDING SCALE (NOVOLOG) 1 VIAL SQ SCH ×4 (06:45→22:01)
[2022-01-28 08:29] LABS: BASO % 1.4 % (0-2.0); EOS % 2.5 % (0-4.5); HEMATOCRIT 32.6 % (35.4-49); HEMOGLOBIN 10.8 GM/dL (11.7-16.9); LYMPH % 25.7 % (8-40); MCH 28.3 pg (25.7-33.7); MCHC 33.3 g/dl (32.0-35.9); MEAN CELL VOLUME 85.2 fl (80-96); MEAN PLT VOLUME 8.5 fl (7.5-11.1); MONO % 11.6 % (3.8-10.2); NEUT % 58.8 % (42.8-82.8); PLATELET COUNT 210 10^3/uL (134-434); RBC 3.82 M/mm3 (4.00-5.60); RDW 13.5 % (11.9-15.9); WHITE BLOOD COUNT 4.5 K/mm3 (4.0-10.0)
[2022-01-28 08:46] LABS: CALCIUM 8.5 mg/dL (8.5-10.1)
[2022-01-28 08:47] LABS: BLOOD UREA NITROGEN 15.7 mg/dL (7-18)
[2022-01-28 08:51] LABS: BILIRUBIN,TOTAL 0.6 mg/dL (0.2-1)
[2022-01-28 08:54] LABS: ALBUMIN 2.5 g/dl (3.4-5.0); TOT PROT 5.2 g/dl (6.4-8.2)
[2022-01-28] MEDS: HEPARIN NA (PORCINE) 5,000 UNITS/ML 1ML VIAL SQ SCH ×2 (09:58→22:00)
[2022-01-28] MEDS: BENZTROPINE MESYLATE 0.5 MG TABLET (FP) PO SCH (09:58)
[2022-01-28] MEDS: INSULIN (LEVEMIR) 100 UNITS/ML UNITS SQ SCH ×2 (09:58→22:00)
[2022-01-28] MEDS: LABETALOL HCL 200 MG TABLET (FP) PO SCH ×2 (12:52→22:01)
[2022-01-28] MEDS: risperiDONE 1 MG TABLET PO SCH ×2 (12:52→22:01)
[2022-01-28] MEDS: SODIUM CHLORIDE 0.45%/POT 20 MEQ/1,000 ML INFUS.BAG IV SCH (15:49)
[2022-01-28] MEDS ORDERED: traZODone HCL 50 MG TABLET (FP) PO SCH (22:00)
[2022-01-28] MEDS ORDERED: ATORVASTATIN CA 40 MG TABLET (FP) PO SCH (22:00)
[2022-01-28] MEDS ORDERED: LISINOPRIL 20 MG TABLET PO SCH (22:00)
[2022-01-28] MEDS: GABAPENTIN 300 MG CAPSULE PO SCH (22:03)
[2022-01-29] MEDS ORDERED: INSULIN (LEVEMIR) 100 UNITS/ML UNITS SQ SCH (00:11)
[2022-01-29] MEDS: INSULIN (NOVOLOG) ASPART 100 UNITS/ML 10ML VIAL SQ SCH ×2 (06:43→11:45)
[2022-01-29] MEDS: INSULIN SLIDING SCALE (NOVOLOG) 1 VIAL SQ SCH ×2 (06:43→11:46)
[2022-01-29] MEDS: GABAPENTIN 300 MG CAPSULE PO SCH (09:42)
[2022-01-29] MEDS: HEPARIN NA (PORCINE) 5,000 UNITS/ML 1ML VIAL SQ SCH (09:42)
[2022-01-29] MEDS: SODIUM CHLORIDE 0.45%/POT 20 MEQ/1,000 ML INFUS.BAG IV SCH (09:43)
[2022-01-29] MEDS: LABETALOL HCL 200 MG TABLET (FP) PO SCH (09:45)
[2022-01-29] MEDS: BENZTROPINE MESYLATE 0.5 MG TABLET (FP) PO SCH (09:45)
[2022-01-29] MEDS ORDERED: RISPERIDONE PO SCH (10:00)
[2022-01-29] MEDS ORDERED: ASPIRIN 81 MG CHEWABLE TABLETS PO SCH (10:00)
[2022-01-29 14:06] VITALS: BP 107/53; PULSE 75; TEMP 98.3
== END 2022-01-29 16:11 | disposition home health service (06) | DRG 637 ==
LOC: JER 02:55 → JERBED 05:46 → J6S 12:50
PROVIDERS: ADMIT Internal Medicine; ATTEND Internal Medicine
DX: E11.00 Type 2 diabetes mellitus with hyperosmolarity without nonketotic hyperglycemic-hyperosmolar coma (NKHHC) (principal); G93.41 Metabolic encephalopathy; E87.1 Hypo-osmolality and hyponatremia; N17.9 Acute kidney failure, unspecified; R55 Syncope and collapse; I10 Essential (primary) hypertension; E11.65 Type 2 diabetes mellitus with hyperglycemia; E78.5 Hyperlipidemia, unspecified; R26.81 Unsteadiness on feet; E86.0 Dehydration; F32.A Depression, unspecified; E11.51 Type 2 diabetes mellitus with diabetic peripheral angiopathy without gangrene; R25.1 Tremor, unspecified; Z91.14 Patient's other noncompliance with medication regimen; Z86.73 Personal history of transient ischemic attack (TIA), and cerebral infarction without residual deficits; W18.39XA Other fall on same level, initial encounter; Y92.091 Bathroom in other non-institutional residence as the place of occurrence of the external cause
CPT/HCPCS: 36415; 70450-TC; 71045-TC-FY; 72125-TC; 80048; 80053; 81003; 82010; 82550; 82553; 82570; 82803; 82962; 83036; 83605; 83735; 83935; 84100; 84300; 84484; 85025; 85610; 85730; 86850; 86900; 86901; 87040; 93005; 93010; 97116-GP; 97162-GP; 99285-25; C9803; J1644; J2794; J3480; U0003; U0005

== ENCOUNTER 2022-02-17 17:36 | Emergency (ER) | payer OTHER, BC ==
[2022-02-17 18:06] VITALS: TEMP 97.9; BMI 26.6
[2022-02-17] MEDS ORDERED: LISINOPRIL 20 MG TABLET PO ONE (18:24)
[2022-02-17] MEDS ORDERED: LABETALOL HCL 200 MG TABLET (FP) PO ONE (18:24)
[2022-02-17] MEDS ORDERED: LABETALOL HCL 100 MG TABLET (FP) ONE (18:33)
[2022-02-17] MEDS ORDERED: LISINOPRIL 20 MG TABLET ONE (18:33)
[2022-02-17 18:57] VITALS: BP 183/83; PULSE 67
== END 2022-02-17 19:06 | disposition home or self-care (01) ==
LOC: JER 17:36
DX: R03.0 Elevated blood-pressure reading, without diagnosis of hypertension (principal)
CPT/HCPCS: 99283-25

== ENCOUNTER 2022-03-07 09:12 | Observation (INO) | payer OTHER, BC ==
[2022-03-07 09:54] LABS: BASO % 1.4 % (0-2.0); EOS % 2.2 % (0-4.5); HEMATOCRIT 38.8 % (35.4-49); HEMOGLOBIN 12.6 GM/dL (11.7-16.9); LYMPH % 14.8 % (8-40); MCH 28.7 pg (25.7-33.7); MCHC 32.3 g/dl (32.0-35.9); MEAN CELL VOLUME 88.6 fl (80-96); MEAN PLT VOLUME 7.9 fl (7.5-11.1); NEUT % 73.6 % (42.8-82.8); PLATELET COUNT 239 10^3/uL (134-434); RBC 4.38 M/mm3 (4.00-5.60); RDW 14.3 % (11.9-15.9); WHITE BLOOD COUNT 4.4 K/mm3 (4.0-10.0)
[2022-03-07 10:10] LABS: CHLORIDE 101 mmol/L (98-107); SODIUM 125 mmol/L (136-145)
[2022-03-07 10:12] LABS: BLOOD UREA NITROGEN 24.8 mg/dL (7-18); CALCIUM 8.5 mg/dL (8.5-10.1); GLUCOSE,RANDOM 52 mg/dL (74-106)
[2022-03-07 10:13] LABS: ALBUMIN 3.2 g/dl (3.4-5.0); CO2 26 mmol/L (21-32)
[2022-03-07 10:15] LABS: CREATININE 1.1 mg/dL (0.55-1.3)
[2022-03-07 10:17] LABS: TOT PROT 8.2 g/dl (6.4-8.2)
[2022-03-07 10:18] LABS: ALK PHOS 78 U/L (45-117)
[2022-03-07 11:24] LABS: ANION GAP -2 MMOL/L (8-16); SGOT/AST 144 U/L (15-37)
[2022-03-07 12:34] LABS: CALCIUM 8.9 mg/dL (8.5-10.1)
[2022-03-07 12:35] LABS: ALBUMIN 3.7 g/dl (3.4-5.0); BLOOD UREA NITROGEN 24.1 mg/dL (7-18)
[2022-03-07 12:38] LABS: CREATININE 1.1 mg/dL (0.55-1.3)
[2022-03-07 12:39] LABS: BILIRUBIN,TOTAL 0.9 mg/dL (0.2-1)
[2022-03-07 13:18] LABS: EPI CELLS 2 /uL (0-25.1); HYALINE CASTS 0 /uL (0-3.1); PH,URINE 6.5 (5.0-8.0); URINE APPEARANCE CLEAR; URINE BACTERIA 8 /uL (0-1359); URINE BILIRUBIN NEGATIVE (NEGATIVE); URINE COLOR YELLOW; URINE GLUCOSE (UA) 1+ (NEGATIVE); URINE KETONE NEGATIVE (NEGATIVE); URINE LEUK ESTERASE NEGATIVE (NEGATIVE); URINE NITRITE NEGATIVE (NEGATIVE); URINE PROTEIN 2+ (NEGATIVE); URINE RBC 6 /uL (0-23.9); URINE UROBILINOGEN 0.2 mg/dL (0.2-1.0); URINE WBC 3 /uL (0-25.8)
[2022-03-07 16:23] VITALS: BMI 27.8
[2022-03-07] MEDS: SODIUM CHLORIDE 1,000 ML IV SCH (18:00)
[2022-03-07] MEDS: traZODone HCL 50 MG TABLET (FP) PO SCH (22:02)
[2022-03-07] MEDS: metFORMIN HCL 500 MG TABLET (FP) PO SCH (22:02)
[2022-03-07] MEDS: LABETALOL HCL 200 MG TABLET (FP) PO SCH (22:02)
[2022-03-07] MEDS: ROSUVASTATIN CA 10 MG TABLET PO SCH (22:02)
[2022-03-07] MEDS: INSULIN (LEVEMIR) 100 UNITS/ML UNITS SQ SCH (22:03)
[2022-03-07] MEDS: INSULIN (NOVOLOG) ASPART 100 UNITS/ML 10ML VIAL SQ SCH (22:05)
[2022-03-07] MEDS: risperiDONE 1 MG TABLET PO SCH (22:07)
[2022-03-08] MEDS: metFORMIN HCL 500 MG TABLET (FP) PO SCH ×2 (06:00→16:32)
[2022-03-08] MEDS: INSULIN (NOVOLOG) ASPART 100 UNITS/ML 10ML VIAL SQ SCH ×4 (06:00→22:51)
[2022-03-08] MEDS: ASPIRIN 81 MG CHEWABLE TABLETS PO SCH (09:35)
[2022-03-08] MEDS: LABETALOL HCL 200 MG TABLET (FP) PO SCH ×2 (09:35→22:44)
[2022-03-08] MEDS: NIFEdipine E.R 60 MG TABLET PO SCH (09:35)
[2022-03-08] MEDS: LISINOPRIL 20 MG TABLET PO SCH (09:35)
[2022-03-08] MEDS: GABAPENTIN 300 MG CAPSULE PO SCH (09:35)
[2022-03-08] MEDS: INSULIN (LEVEMIR) 100 UNITS/ML UNITS SQ SCH (09:41)
[2022-03-08 10:14] LABS: BASO % 0.9 % (0-2.0); EOS % 3.3 % (0-4.5); HEMATOCRIT 33.7 % (35.4-49); HEMOGLOBIN 11.2 GM/dL (11.7-16.9); LYMPH % 26.4 % (8-40); MCH 29.3 pg (25.7-33.7); MCHC 33.2 g/dl (32.0-35.9); MEAN CELL VOLUME 88.2 fl (80-96); MEAN PLT VOLUME 7.9 fl (7.5-11.1); MONO % 13.9 % (3.8-10.2); NEUT % 55.5 % (42.8-82.8); PLATELET COUNT 243 10^3/uL (134-434); RBC 3.82 M/mm3 (4.00-5.60); RDW 13.9 % (11.9-15.9); WHITE BLOOD COUNT 4.2 K/mm3 (4.0-10.0)
[2022-03-08 10:28] LABS: CALCIUM 8.3 mg/dL (8.5-10.1)
[2022-03-08 10:29] LABS: BLOOD UREA NITROGEN 23.5 mg/dL (7-18)
[2022-03-08 10:32] LABS: CREATININE 1.2 mg/dL (0.55-1.3)
[2022-03-08 10:33] LABS: BILIRUBIN,TOTAL 0.8 mg/dL (0.2-1); TOT PROT 5.7 g/dl (6.4-8.2)
[2022-03-08 11:06] LABS: ALBUMIN 2.9 g/dl (3.4-5.0)
[2022-03-08] MEDS ORDERED: ACETAMINOPHEN 325 MG TABLET (FP) PO PRN (11:29)
[2022-03-08] MEDS: SODIUM CHLORIDE 1,000 ML IV SCH (16:33)
[2022-03-08] MEDS ORDERED: INSULIN (LEVEMIR) 100 UNITS/ML UNITS SQ SCH ×2 (22:00→23:58)
[2022-03-08] MEDS: ROSUVASTATIN CA 10 MG TABLET PO SCH (22:44)
[2022-03-08] MEDS: HEPARIN NA (PORCINE) 5,000 UNITS/ML 1ML VIAL SQ SCH (22:44)
[2022-03-08] MEDS: risperiDONE 1 MG TABLET PO SCH (23:00)
[2022-03-08] MEDS: traZODone HCL 50 MG TABLET (FP) PO SCH (23:00)
[2022-03-09] MEDS: SODIUM CHLORIDE 1,000 ML IV SCH (05:53)
[2022-03-09] MEDS: INSULIN (NOVOLOG) ASPART 100 UNITS/ML 10ML VIAL SQ SCH ×2 (05:59→11:03)
[2022-03-09] MEDS ORDERED: INSULIN (LEVEMIR) 100 UNITS/ML UNITS SQ SCH ×2 (07:00)
[2022-03-09] MEDS: LABETALOL HCL 200 MG TABLET (FP) PO SCH (09:51)
[2022-03-09] MEDS: GABAPENTIN 300 MG CAPSULE PO SCH (09:51)
[2022-03-09] MEDS: metFORMIN HCL 500 MG TABLET (FP) PO SCH (09:51)
[2022-03-09] MEDS: NIFEdipine E.R 60 MG TABLET PO SCH (09:52)
[2022-03-09] MEDS: ASPIRIN 81 MG CHEWABLE TABLETS PO SCH (09:52)
[2022-03-09] MEDS: HEPARIN NA (PORCINE) 5,000 UNITS/ML 1ML VIAL SQ SCH (09:52)
[2022-03-09] MEDS: LISINOPRIL 20 MG TABLET PO SCH (09:52)
[2022-03-09 14:03] VITALS: BP 130/77; PULSE 68; TEMP 97.9
== END 2022-03-09 15:07 | disposition home or self-care (01) ==
LOC: JER 09:12 → JERBED 12:59 → J7W 15:18
PROVIDERS: ADMIT Internal Medicine; ATTEND Internal Medicine
PROC: 3E023GC Introduction of Other Therapeutic Substance into Muscle, Percutaneous Approach (ICD-10-PCS; principal; 2022-03-07)
PROC: 3E013VG Introduction of Insulin into Subcutaneous Tissue, Percutaneous Approach (ICD-10-PCS; 2022-03-07)
PROC: 3E0337Z Introduction of Electrolytic and Water Balance Substance into Peripheral Vein, Percutaneous Approach (ICD-10-PCS; 2022-03-07)
DX: E11.649 Type 2 diabetes mellitus with hypoglycemia without coma (principal); E11.40 Type 2 diabetes mellitus with diabetic neuropathy, unspecified; E86.0 Dehydration; E87.1 Hypo-osmolality and hyponatremia; R31.9 Hematuria, unspecified; I10 Essential (primary) hypertension; I87.332 Chronic venous hypertension (idiopathic) with ulcer and inflammation of left lower extremity; M62.82 Rhabdomyolysis; H11.32 Conjunctival hemorrhage, left eye; G45.9 Transient cerebral ischemic attack, unspecified; F32.A Depression, unspecified; R00.2 Palpitations; Z29.8 Encounter for other specified prophylactic measures
CPT/HCPCS: 36415; 71046-TC-FY; 80053; 81003; 82962; 83036; 85025; 93005; 93010; 96360; 96372; 99285-25; C9803-CS; G0378; J1644; J2794; U0003; U0005

== ENCOUNTER 2023-01-11 23:45 | Inpatient (IN) | payer OTHER, BC ==
[2023-01-12 00:12] VITALS: BMI 25.8
[2023-01-12 01:25] LABS: BASO % 0.8 % (0-2.0); EOS % 0.5 % (0-4.5); HEMATOCRIT 32.9 % (35.4-49); HEMOGLOBIN 10.8 GM/dL (11.7-16.9); LYMPH % 9.4 % (8-40); MCHC 32.8 g/dl (32.0-35.9); MEAN CELL VOLUME 88.3 fl (80-96); MEAN PLT VOLUME 9.3 fl (7.5-11.1); MONO % 5.6 % (3.8-10.2); NEUT % 83.7 % (42.8-82.8); PLATELET COUNT 244 10^3/uL (134-434); RBC 3.72 M/mm3 (4.00-5.60); RDW 12.6 % (11.9-15.9); WHITE BLOOD COUNT 6.5 K/mm3 (4.0-10.0)
[2023-01-12 01:30] LABS: INR 0.96 (0.83-1.09); PROTHROMBIN TIME (PATIENT) 11.1 SEC (9.7-13.0)
[2023-01-12 01:33] LABS: ACTIVATED PTT 25.7 SECONDS (25.2-36.5)
[2023-01-12 01:45] LABS: CHLORIDE 92 mmol/L (98-107); SODIUM 126 mmol/L (136-145)
[2023-01-12 01:47] LABS: ALBUMIN 2.9 g/dl (3.4-5.0); ANION GAP 12 MMOL/L (8-16); BLOOD UREA NITROGEN 50.6 mg/dL (7-18); CALCIUM 8.3 mg/dL (8.5-10.1); CO2 23 mmol/L (21-32); MAGNESIUM 2.1 mg/dL (1.8-2.4)
[2023-01-12 01:50] LABS: CREATININE 2.2 mg/dL (0.55-1.3); PHOSPHOROUS 4.9 mg/dL (2.5-4.9); SGOT/AST 12 U/L (15-37); SGPT/ALT 12 U/L (13-61)
[2023-01-12 01:52] LABS: BILIRUBIN,TOTAL 0.5 mg/dL (0.2-1); TOT PROT 5.9 g/dl (6.4-8.2)
[2023-01-12 01:53] LABS: ALK PHOS 136 U/L (45-117)
[2023-01-12] MEDS ORDERED: INSULIN (NOVOLOG) ASPART 100 UNITS/ML 10ML VIAL SQ ONE ×2 (01:59→07:30)
[2023-01-12] MEDS ORDERED: INSULIN REGULAR HUMAN 100 UNITS/ML *VIAL IVPUSH ONE (01:59)
[2023-01-12] MEDS ORDERED: LACTATED RINGERS SOLUTION 1000 ML INFUS.BAG IV ONE (02:00)
[2023-01-12 02:20] LABS: GLUCOSE,RANDOM 870 mg/dL (74-106)
[2023-01-12] MEDS ORDERED: SODIUM CHLORIDE 0.9% 500 ML INFUS.BAG IV ONE (02:46)
[2023-01-12 03:53] LABS: HEMATOCRIT 31.5 % (35.4-49); HEMOGLOBIN 10.6 GM/dL (11.7-16.9); MCH 29.1 pg (25.7-33.7); MCHC 33.8 g/dl (32.0-35.9); MEAN CELL VOLUME 86.1 fl (80-96); MEAN PLT VOLUME 8.6 fl (7.5-11.1); PLATELET COUNT 232 10^3/uL (134-434); RBC 3.66 M/mm3 (4.00-5.60); RDW 12.7 % (11.9-15.9); WHITE BLOOD COUNT 8.5 K/mm3 (4.0-10.0)
[2023-01-12] MEDS ORDERED: SODIUM CHLORIDE 0.45% 1,000 ML IV SCH (04:00)
[2023-01-12 04:13] LABS: CHLORIDE 97 mmol/L (98-107); SODIUM 130 mmol/L (136-145)
[2023-01-12 04:14] LABS: ANION GAP 11 MMOL/L (8-16); CALCIUM 8.4 mg/dL (8.5-10.1); CO2 22 mmol/L (21-32)
[2023-01-12 04:15] LABS: BLOOD UREA NITROGEN 49.7 mg/dL (7-18)
[2023-01-12 05:03] LABS: GLUCOSE,RANDOM 656 mg/dL (74-106)
[2023-01-12] MEDS ORDERED: GABAPENTIN 300 MG CAPSULE PO SCH ×2 (05:15→10:00)
[2023-01-12 05:27] LABS: LACTIC ACID 3.1 mmol/L (0.4-2.0)
[2023-01-12] MEDS ORDERED: PANTOPRAZOLE SODIUM 40 MG VIAL IVPUSH ONE (05:32)
[2023-01-12] MEDS ORDERED: PANTOPRAZOLE SODIUM 40 MG VIAL ONE (06:23)
[2023-01-12] MEDS ORDERED: SODIUM CHLORIDE 1,000 ML IV STA ×2 (07:17→07:18)
[2023-01-12] MEDS ORDERED: SODIUM CHLORIDE 1,000 ML IV SCH (07:30)
[2023-01-12 07:46] LABS: BASO % 0.7 % (0-2.0); EOS % 0.3 % (0-4.5); HEMATOCRIT 29.8 % (35.4-49); HEMOGLOBIN 9.9 GM/dL (11.7-16.9); LYMPH % 16.5 % (8-40); MCH 28.7 pg (25.7-33.7); MCHC 33.4 g/dl (32.0-35.9); MEAN CELL VOLUME 86.1 fl (80-96); MEAN PLT VOLUME 8.9 fl (7.5-11.1); MONO % 8.7 % (3.8-10.2); NEUT % 73.8 % (42.8-82.8); PLATELET COUNT 273 10^3/uL (134-434); RBC 3.46 M/mm3 (4.00-5.60); RDW 12.5 % (11.9-15.9); WHITE BLOOD COUNT 9.5 K/mm3 (4.0-10.0)
[2023-01-12 08:27] LABS: LACTIC ACID 3.7 mmol/L (0.4-2.0)
[2023-01-12 10:03] LABS: INR 0.98 (0.83-1.09); PROTHROMBIN TIME (PATIENT) 11.4 SEC (9.7-13.0)
[2023-01-12 10:05] LABS: ACTIVATED PTT 25.5 SECONDS (25.2-36.5)
[2023-01-12] MEDS ORDERED: INSULIN (LEVEMIR) 100 UNITS/ML UNITS SQ ONE (11:15)
[2023-01-12] MEDS: INSULIN SLIDING SCALE (NOVOLOG) 1 VIAL SQ SCH ×3 (12:25→21:26)
[2023-01-12] MEDS: PANTOPRAZOLE SODIUM 40 MG VIAL IVPUSH SCH (14:21)
[2023-01-12] MEDS ORDERED: BISACODYL 5 MG TABLET.DR (FP) PO ONE (17:05)
[2023-01-12] MEDS: SODIUM CHLORIDE 1,000 ML IV SCH ×2 (17:33→21:33)
[2023-01-12] MEDS ORDERED: POLYETHYLENE GLYCOL 3350 255 GM BTL PO ONE (19:00)
[2023-01-12] MEDS: ROSUVASTATIN CA 10 MG TABLET PO SCH (21:24)
[2023-01-12] MEDS: GABAPENTIN 300 MG CAPSULE PO SCH (21:24)
[2023-01-12] MEDS: traZODone HCL 50 MG TABLET (FP) PO SCH (21:25)
[2023-01-12] MEDS: risperiDONE 1 MG TABLET PO SCH (21:32)
[2023-01-12] MEDS ORDERED: ROSUVASTATIN CA 10 MG TABLET PO SCH (22:00)
[2023-01-12] MEDS ORDERED: risperiDONE 1 MG TABLET PO SCH (22:00)
[2023-01-12] MEDS ORDERED: traZODone HCL 50 MG TABLET (FP) PO SCH (22:00)
[2023-01-12] MEDS ORDERED: INSULIN (LEVEMIR) 100 UNITS/ML UNITS SQ SCH (22:00)
[2023-01-13] MEDS: INSULIN SLIDING SCALE (NOVOLOG) 1 VIAL SQ SCH ×4 (06:51→21:21)
[2023-01-13] MEDS: INSULIN (NOVOLOG) ASPART 100 UNITS/ML 10ML VIAL SQ SCH ×3 (06:51→17:22)
[2023-01-13] MEDS ORDERED: INSULIN (LEVEMIR) 100 UNITS/ML UNITS SQ SCH ×2 (07:00→19:00)
[2023-01-13 07:38] LABS: HEMATOCRIT 21.2 % (35.4-49); HEMOGLOBIN 7.2 GM/dL (11.7-16.9); MCH 28.9 pg (25.7-33.7); MCHC 33.9 g/dl (32.0-35.9); MEAN CELL VOLUME 85.4 fl (80-96); MEAN PLT VOLUME 8.3 fl (7.5-11.1); PLATELET COUNT 178 10^3/uL (134-434); RBC 2.48 M/mm3 (4.00-5.60); RDW 12.8 % (11.9-15.9); WHITE BLOOD COUNT 5.5 K/mm3 (4.0-10.0)
[2023-01-13] MEDS ORDERED: MINERAL OIL ENEMA 133 ML ENEMA RC ONE ×2 (08:00→12:00)
[2023-01-13 08:12] LABS: CALCIUM 7.8 mg/dL (8.5-10.1)
[2023-01-13 08:13] LABS: BLOOD UREA NITROGEN 31.2 mg/dL (7-18); MAGNESIUM 1.8 mg/dL (1.8-2.4)
[2023-01-13 08:16] LABS: CREATININE 1.2 mg/dL (0.55-1.3)
[2023-01-13] MEDS: PANTOPRAZOLE SODIUM 40 MG VIAL IVPUSH SCH (09:37)
[2023-01-13] MEDS: GABAPENTIN 300 MG CAPSULE PO SCH ×2 (09:37→21:15)
[2023-01-13] MEDS ORDERED: LIDOCAINE HCL 2% (20ML MULTI-DOSE VIAL) ONE (15:20)
[2023-01-13] MEDS: risperiDONE 1 MG TABLET PO SCH (21:13)
[2023-01-13] MEDS: ROSUVASTATIN CA 10 MG TABLET PO SCH (21:14)
[2023-01-13] MEDS: traZODone HCL 50 MG TABLET (FP) PO SCH (21:14)
[2023-01-13] MEDS: SODIUM CHLORIDE 1,000 ML IV SCH (21:16)
[2023-01-14] MEDS: SODIUM CHLORIDE 1,000 ML IV SCH (03:49)
[2023-01-14] MEDS: INSULIN SLIDING SCALE (NOVOLOG) 1 VIAL SQ SCH ×4 (06:35→21:15)
[2023-01-14] MEDS: INSULIN (LEVEMIR) 100 UNITS/ML UNITS SQ SCH (06:35)
[2023-01-14] MEDS: INSULIN (NOVOLOG) ASPART 100 UNITS/ML 10ML VIAL SQ SCH ×3 (06:36→17:39)
[2023-01-14 08:09] LABS: BASO % 0.9 % (0-2.0); EOS % 2.5 % (0-4.5); HEMATOCRIT 25.9 % (35.4-49); HEMOGLOBIN 8.7 GM/dL (11.7-16.9); LYMPH % 17.3 % (8-40); MCHC 33.5 g/dl (32.0-35.9); MEAN CELL VOLUME 86.4 fl (80-96); MEAN PLT VOLUME 8.9 fl (7.5-11.1); MONO % 10.8 % (3.8-10.2); NEUT % 68.5 % (42.8-82.8); PLATELET COUNT 178 10^3/uL (134-434); RDW 13.2 % (11.9-15.9)
[2023-01-14 08:24] LABS: CALCIUM 7.9 mg/dL (8.5-10.1)
[2023-01-14 08:25] LABS: ALBUMIN 2.6 g/dl (3.4-5.0); BLOOD UREA NITROGEN 15.2 mg/dL (7-18)
[2023-01-14 08:28] LABS: CREATININE 1.1 mg/dL (0.55-1.3)
[2023-01-14 08:30] LABS: BILIRUBIN,TOTAL 0.6 mg/dL (0.2-1)
[2023-01-14] MEDS: PANTOPRAZOLE SODIUM 40 MG VIAL IVPUSH SCH (09:27)
[2023-01-14] MEDS: GABAPENTIN 300 MG CAPSULE PO SCH ×2 (09:27→21:12)
[2023-01-14] MEDS: LABETALOL HCL 200 MG TABLET (FP) PO SCH ×2 (11:53→21:13)
[2023-01-14] MEDS: NIFEdipine E.R 60 MG TABLET PO SCH (11:54)
[2023-01-14] MEDS: risperiDONE 1 MG TABLET PO SCH (21:13)
[2023-01-14] MEDS: traZODone HCL 50 MG TABLET (FP) PO SCH (21:13)
[2023-01-14] MEDS: ROSUVASTATIN CA 10 MG TABLET PO SCH (21:13)
[2023-01-15] MEDS: INSULIN SLIDING SCALE (NOVOLOG) 1 VIAL SQ SCH ×4 (06:31→22:10)
[2023-01-15] MEDS: INSULIN (LEVEMIR) 100 UNITS/ML UNITS SQ SCH (06:31)
[2023-01-15] MEDS: INSULIN (NOVOLOG) ASPART 100 UNITS/ML 10ML VIAL SQ SCH ×3 (06:32→16:47)
[2023-01-15 07:26] LABS: ALBUMIN 2.4 g/dl (3.4-5.0); BLOOD UREA NITROGEN 14.1 mg/dL (7-18)
[2023-01-15 07:29] LABS: CREATININE 1.4 mg/dL (0.55-1.3)
[2023-01-15 07:30] LABS: BILIRUBIN,TOTAL 0.5 mg/dL (0.2-1); TOT PROT 4.8 g/dl (6.4-8.2)
[2023-01-15 08:23] LABS: BASO % 0.8 % (0-2.0); EOS % 1.7 % (0-4.5); HEMATOCRIT 23.5 % (35.4-49); LYMPH % 19.1 % (8-40); MCH 29.6 pg (25.7-33.7); MCHC 34.1 g/dl (32.0-35.9); MEAN CELL VOLUME 86.8 fl (80-96); MEAN PLT VOLUME 8.7 fl (7.5-11.1); MONO % 12.7 % (3.8-10.2); NEUT % 65.7 % (42.8-82.8); PLATELET COUNT 171 10^3/uL (134-434); RBC 2.71 M/mm3 (4.00-5.60); RDW 13.3 % (11.9-15.9)
[2023-01-15] MEDS: PANTOPRAZOLE SODIUM 40 MG VIAL IVPUSH SCH (09:33)
[2023-01-15] MEDS: NIFEdipine E.R 60 MG TABLET PO SCH (09:34)
[2023-01-15] MEDS: GABAPENTIN 300 MG CAPSULE PO SCH ×2 (09:35→21:45)
[2023-01-15] MEDS: LABETALOL HCL 200 MG TABLET (FP) PO SCH ×2 (09:35→21:45)
[2023-01-15] MEDS: risperiDONE 1 MG TABLET PO SCH (21:44)
[2023-01-15] MEDS: traZODone HCL 50 MG TABLET (FP) PO SCH (21:45)
[2023-01-15] MEDS: ROSUVASTATIN CA 10 MG TABLET PO SCH (21:45)
[2023-01-16 06:38] LABS: BASO % 0.7 % (0-2.0); EOS % 2.1 % (0-4.5); HEMATOCRIT 22.6 % (35.4-49); HEMOGLOBIN 7.6 GM/dL (11.7-16.9); LYMPH % 19.2 % (8-40); MCH 28.8 pg (25.7-33.7); MCHC 33.4 g/dl (32.0-35.9); MEAN CELL VOLUME 86.2 fl (80-96); MEAN PLT VOLUME 8.2 fl (7.5-11.1); MONO % 13.5 % (3.8-10.2); NEUT % 64.5 % (42.8-82.8); PLATELET COUNT 166 10^3/uL (134-434); RBC 2.63 M/mm3 (4.00-5.60); RDW 13.5 % (11.9-15.9); WHITE BLOOD COUNT 6.2 K/mm3 (4.0-10.0)
[2023-01-16] MEDS: INSULIN (LEVEMIR) 100 UNITS/ML UNITS SQ SCH (06:41)
[2023-01-16] MEDS: INSULIN (NOVOLOG) ASPART 100 UNITS/ML 10ML VIAL SQ SCH ×3 (06:42→17:35)
[2023-01-16] MEDS: INSULIN SLIDING SCALE (NOVOLOG) 1 VIAL SQ SCH ×4 (06:42→22:25)
[2023-01-16 07:11] LABS: CALCIUM 8.3 mg/dL (8.5-10.1)
[2023-01-16 07:12] LABS: BLOOD UREA NITROGEN 22.2 mg/dL (7-18)
[2023-01-16 07:15] LABS: CREATININE 1.6 mg/dL (0.55-1.3)
[2023-01-16] MEDS: PANTOPRAZOLE SODIUM 40 MG VIAL IVPUSH SCH (09:10)
[2023-01-16] MEDS: GABAPENTIN 300 MG CAPSULE PO SCH ×2 (09:10→21:35)
[2023-01-16] MEDS: NIFEdipine E.R 60 MG TABLET PO SCH (09:10)
[2023-01-16] MEDS: LABETALOL HCL 200 MG TABLET (FP) PO SCH (09:10)
[2023-01-16] MEDS: FERROUS SO4 325 MG TABLET (FP) PO SCH (17:36)
[2023-01-16] MEDS: ROSUVASTATIN CA 10 MG TABLET PO SCH (21:35)
[2023-01-16] MEDS: traZODone HCL 50 MG TABLET (FP) PO SCH (21:36)
[2023-01-16] MEDS: risperiDONE 1 MG TABLET PO SCH (21:36)
[2023-01-16] MEDS: LABETALOL HCL 100 MG TABLET (FP) PO SCH (21:36)
[2023-01-17] MEDS: INSULIN SLIDING SCALE (NOVOLOG) 1 VIAL SQ SCH ×4 (06:50→22:28)
[2023-01-17] MEDS: INSULIN (NOVOLOG) ASPART 100 UNITS/ML 10ML VIAL SQ SCH ×3 (06:52→17:26)
[2023-01-17] MEDS: INSULIN (LEVEMIR) 100 UNITS/ML UNITS SQ SCH (06:52)
[2023-01-17 07:21] LABS: BASO % 0.8 % (0-2.0); EOS % 2.4 % (0-4.5); HEMATOCRIT 22.8 % (35.4-49); HEMOGLOBIN 7.5 GM/dL (11.7-16.9); LYMPH % 13.6 % (8-40); MCH 28.6 pg (25.7-33.7); MEAN CELL VOLUME 86.7 fl (80-96); MEAN PLT VOLUME 8.6 fl (7.5-11.1); MONO % 12.5 % (3.8-10.2); NEUT % 70.7 % (42.8-82.8); PLATELET COUNT 180 10^3/uL (134-434); RBC 2.63 M/mm3 (4.00-5.60); RDW 13.6 % (11.9-15.9); WHITE BLOOD COUNT 6.6 K/mm3 (4.0-10.0)
[2023-01-17 07:49] LABS: ALBUMIN 2.3 g/dl (3.4-5.0); BLOOD UREA NITROGEN 22.7 mg/dL (7-18); CALCIUM 8.1 mg/dL (8.5-10.1)
[2023-01-17 07:52] LABS: CREATININE 1.6 mg/dL (0.55-1.3)
[2023-01-17 07:54] LABS: BILIRUBIN,TOTAL 0.4 mg/dL (0.2-1); TOT PROT 4.8 g/dl (6.4-8.2)
[2023-01-17] MEDS: GABAPENTIN 300 MG CAPSULE PO SCH ×2 (09:48→21:59)
[2023-01-17] MEDS: FERROUS SO4 325 MG TABLET (FP) PO SCH ×3 (09:48→17:27)
[2023-01-17] MEDS: NIFEdipine E.R 60 MG TABLET PO SCH (09:48)
[2023-01-17] MEDS: PANTOPRAZOLE SODIUM 40 MG VIAL IVPUSH SCH (09:48)
[2023-01-17] MEDS: LABETALOL HCL 100 MG TABLET (FP) PO SCH ×2 (09:48→21:59)
[2023-01-17] MEDS: risperiDONE 1 MG TABLET PO SCH (21:58)
[2023-01-17] MEDS: traZODone HCL 50 MG TABLET (FP) PO SCH (21:59)
[2023-01-17] MEDS: ROSUVASTATIN CA 10 MG TABLET PO SCH (21:59)
[2023-01-17] MEDS ORDERED: INSULIN (LEVEMIR) 100 UNITS/ML UNITS SQ SCH (22:00)
[2023-01-18] MEDS: INSULIN (NOVOLOG) ASPART 100 UNITS/ML 10ML VIAL SQ SCH ×3 (06:19→17:04)
[2023-01-18] MEDS: INSULIN SLIDING SCALE (NOVOLOG) 1 VIAL SQ SCH ×4 (06:20→21:35)
[2023-01-18] MEDS: INSULIN (LEVEMIR) 100 UNITS/ML UNITS SQ SCH (06:22)
[2023-01-18 07:39] LABS: EOS % 1.6 % (0-4.5); HEMATOCRIT 22.9 % (35.4-49); HEMOGLOBIN 7.5 GM/dL (11.7-16.9); LYMPH % 12.1 % (8-40); MCH 28.4 pg (25.7-33.7); MCHC 32.6 g/dl (32.0-35.9); MEAN CELL VOLUME 86.9 fl (80-96); MEAN PLT VOLUME 8.8 fl (7.5-11.1); MONO % 12.6 % (3.8-10.2); NEUT % 72.7 % (42.8-82.8); PLATELET COUNT 185 10^3/uL (134-434); RBC 2.63 M/mm3 (4.00-5.60); RDW 13.7 % (11.9-15.9); WHITE BLOOD COUNT 8.1 K/mm3 (4.0-10.0)
[2023-01-18 08:07] LABS: ALBUMIN 2.3 g/dl (3.4-5.0); BLOOD UREA NITROGEN 33.1 mg/dL (7-18); CALCIUM 7.9 mg/dL (8.5-10.1)
[2023-01-18 08:09] LABS: CREATININE 1.7 mg/dL (0.55-1.3)
[2023-01-18 08:13] LABS: BILIRUBIN,TOTAL 0.5 mg/dL (0.2-1)
[2023-01-18] MEDS: NIFEdipine E.R 60 MG TABLET PO SCH (09:11)
[2023-01-18] MEDS: FERROUS SO4 325 MG TABLET (FP) PO SCH ×3 (09:11→17:08)
[2023-01-18] MEDS: GABAPENTIN 300 MG CAPSULE PO SCH ×2 (09:12→21:30)
[2023-01-18] MEDS: LABETALOL HCL 100 MG TABLET (FP) PO SCH ×2 (09:12→21:30)
[2023-01-18] MEDS: PANTOPRAZOLE SODIUM 40 MG VIAL IVPUSH SCH (09:12)
[2023-01-18] MEDS ORDERED: INSULIN (LEVEMIR) 100 UNITS/ML UNITS SQ SCH (11:45)
[2023-01-18] MEDS: traZODone HCL 50 MG TABLET (FP) PO SCH (21:29)
[2023-01-18] MEDS: ROSUVASTATIN CA 10 MG TABLET PO SCH (21:29)
[2023-01-18] MEDS: risperiDONE 1 MG TABLET PO SCH (21:30)
[2023-01-19] MEDS: INSULIN (LEVEMIR) 100 UNITS/ML UNITS SQ SCH (06:38)
[2023-01-19] MEDS: INSULIN (NOVOLOG) ASPART 100 UNITS/ML 10ML VIAL SQ SCH ×2 (06:40→11:37)
[2023-01-19] MEDS: INSULIN SLIDING SCALE (NOVOLOG) 1 VIAL SQ SCH ×2 (06:41→11:37)
[2023-01-19] MEDS: FERROUS SO4 325 MG TABLET (FP) PO SCH ×2 (08:12→11:53)
[2023-01-19] MEDS: PANTOPRAZOLE SODIUM 40 MG VIAL IVPUSH SCH (09:37)
[2023-01-19] MEDS: GABAPENTIN 300 MG CAPSULE PO SCH (09:37)
[2023-01-19] MEDS: LABETALOL HCL 100 MG TABLET (FP) PO SCH (09:37)
[2023-01-19] MEDS: NIFEdipine E.R 60 MG TABLET PO SCH (09:37)
[2023-01-19 15:13] VITALS: BP 114/68; PULSE 81; RESP 20; TEMP 98.6
[2023-01-19] MEDS ORDERED: POLYETHYLENE GLYCOL (HEALTHYLAX) 3350 17 GM PACKET PO SCH (22:00)
== END 2023-01-19 16:12 | DRG 378 ==
LOC: JER 23:45 → JERBED 01-12 01:28 → J5S 01-12 06:31 → J4W 01-12 10:41
PROVIDERS: ADMIT Internal Medicine; ATTEND Internal Medicine
PROC: 0DJD8ZZ Inspection of Lower Intestinal Tract, Via Natural or Artificial Opening Endoscopic (ICD-10-PCS; 2023-01-13)
PROC: 0DB58ZX Excision of Esophagus, Via Natural or Artificial Opening Endoscopic, Diagnostic (ICD-10-PCS; principal; 2023-01-13 15:00)
DX: K92.2 Gastrointestinal hemorrhage, unspecified (principal); E87.1 Hypo-osmolality and hyponatremia; N17.9 Acute kidney failure, unspecified; E78.5 Hyperlipidemia, unspecified; I12.9 Hypertensive chronic kidney disease with stage 1 through stage 4 chronic kidney disease, or unspecified chronic kidney disease; D64.9 Anemia, unspecified; E87.5 Hyperkalemia; I44.0 Atrioventricular block, first degree; K57.30 Diverticulosis of large intestine without perforation or abscess without bleeding; R26.81 Unsteadiness on feet; E11.65 Type 2 diabetes mellitus with hyperglycemia; E11.42 Type 2 diabetes mellitus with diabetic polyneuropathy; E11.22 Type 2 diabetes mellitus with diabetic chronic kidney disease; N18.30 Chronic kidney disease, stage 3 unspecified; Z86.73 Personal history of transient ischemic attack (TIA), and cerebral infarction without residual deficits
CPT/HCPCS: 36415; 36430; 70450-TC; 74178-TC; 80048; 80053; 82272; 82962; 83036; 83605; 83735; 84100; 84484; 85025; 85027; 85610; 85730; 86850; 86900; 86901; 86922; 88305-TC; 93005; 93010; 93306-TC; 97116-GP; 97161-GP; 99285-25; C9803-CS; P9058; U0003; U0005

== ENCOUNTER 2023-02-10 09:41 | Observation (INO) | payer OTHER, BC ==
[2023-02-10] MEDS ORDERED: DEXTROSE 50%-WATER - 25 GM/50 ML VIAL IVPUSH ONE (10:20)
[2023-02-10] MEDS ORDERED: DEXTROSE 50%-WATER 25 GM/50 ML DISP.SYRIN ONE (10:32)
[2023-02-10] MEDS: SODIUM CHLORIDE 1,000 ML IV SCH (10:39)
[2023-02-10 10:44] LABS: BASO % 0.5 % (0-2.0); EOS % 1.3 % (0-4.5); HEMATOCRIT 29.3 % (35.4-49); HEMOGLOBIN 9.5 GM/dL (11.7-16.9); LYMPH % 10.3 % (8-40); MCH 28.3 pg (25.7-33.7); MCHC 32.5 g/dl (32.0-35.9); MEAN PLT VOLUME 6.7 fl (7.5-11.1); MONO % 20.1 % (3.8-10.2); NEUT % 67.8 % (42.8-82.8); PLATELET COUNT 260 10^3/uL (134-434); RBC 3.36 M/mm3 (4.00-5.60); RDW 14.7 % (11.9-15.9); WHITE BLOOD COUNT 2.6 K/mm3 (4.0-10.0)
[2023-02-10 10:57] LABS: INR 1.1 (0.83-1.09); PROTHROMBIN TIME (PATIENT) 12.7 SEC (9.7-13.0)
[2023-02-10 11:00] LABS: ACTIVATED PTT 31.1 SECONDS (25.2-36.5)
[2023-02-10 11:01] LABS: CHLORIDE 108 mmol/L (98-107); SODIUM 138 mmol/L (136-145)
[2023-02-10 11:04] LABS: ALBUMIN 2.8 g/dl (3.4-5.0); ANION GAP 5 MMOL/L (8-16); CO2 26 mmol/L (21-32)
[2023-02-10 11:05] LABS: BLOOD UREA NITROGEN 37.3 mg/dL (7-18)
[2023-02-10 11:07] LABS: CREATININE 1.3 mg/dL (0.55-1.3); SGOT/AST 14 U/L (15-37); SGPT/ALT 19 U/L (13-61)
[2023-02-10 11:08] LABS: TRIGLYCERIDES 56 mg/dL (0-150)
[2023-02-10 11:09] LABS: CHOLESTEROL 125 mg/dL (50-200); LDL CHOLESTEROL (ONLY SJRH) 56 mg/dL (5-100); TOT PROT 6.2 g/dl (6.4-8.2)
[2023-02-10 11:10] LABS: BILIRUBIN,TOTAL 0.7 mg/dL (0.2-1)
[2023-02-10 11:11] LABS: ALK PHOS 74 U/L (45-117); HDL CHOLESTEROL 63 mg/dL (40-60)
[2023-02-10 11:12] LABS: GLUCOSE,RANDOM 48 mg/dL (74-106)
[2023-02-10 11:44] LABS: ANISOCYTOSIS 0; HELMET CELLS 0; HOWELL-JOLLY BODIES 0; MACROCYTOSIS 0; OVALOCYTE 0; ROULEAU 0; SICKELED CELLS 0; TARGET CELLS 0; TEAR DROP CELLS 0; TOXIC GRANULATION 0
[2023-02-10] MEDS ORDERED: ACETAMINOPHEN 325 MG TABLET (FP) PO PRN (17:42)
[2023-02-10] MEDS: DEXTROSE 5%-0.45% SALINE 1,000 ML IV SCH (18:38)
[2023-02-10 19:57] VITALS: RESP 18; BMI 27.6
[2023-02-10] MEDS ORDERED: ROSUVASTATIN CA 20 MG TABLET PO SCH (22:00)
[2023-02-10] MEDS: GABAPENTIN 300 MG CAPSULE PO SCH (22:12)
[2023-02-10] MEDS: LABETALOL HCL 100 MG TABLET (FP) PO SCH (22:12)
[2023-02-10] MEDS: traZODone HCL 50 MG TABLET (FP) PO SCH (22:13)
[2023-02-10] MEDS: POLYETHYLENE GLYCOL (HEALTHYLAX) 3350 17 GM PACKET PO SCH (22:14)
[2023-02-10] MEDS ORDERED: ROSUVASTATIN CA 10 MG TABLET PO SCH (22:18)
[2023-02-10] MEDS: risperiDONE 1 MG TABLET PO SCH (22:50)
[2023-02-11] MEDS: risperiDONE 1 MG TABLET PO SCH ×2 (00:37→23:00)
[2023-02-11] MEDS: INSULIN SLIDING SCALE (NOVOLOG) 1 VIAL SQ SCH ×3 (06:11→17:24)
[2023-02-11] MEDS: LISINOPRIL 20 MG TABLET PO SCH (10:20)
[2023-02-11] MEDS: GABAPENTIN 300 MG CAPSULE PO SCH ×2 (10:20→21:18)
[2023-02-11] MEDS: NIFEdipine E.R 60 MG TABLET PO SCH (10:20)
[2023-02-11] MEDS: LABETALOL HCL 100 MG TABLET (FP) PO SCH ×2 (10:20→21:18)
[2023-02-11] MEDS: POLYETHYLENE GLYCOL (HEALTHYLAX) 3350 17 GM PACKET PO SCH ×2 (10:20→21:17)
[2023-02-11] MEDS: SODIUM CHLORIDE 1,000 ML IV SCH ×4 (10:23→11:17)
[2023-02-11] MEDS: DEXTROSE 5%-0.45% SALINE 1,000 ML IV SCH (10:23)
[2023-02-11] MEDS: traZODone HCL 50 MG TABLET (FP) PO SCH (21:17)
[2023-02-11] MEDS: HEPARIN NA (PORCINE) 5,000 UNITS/ML 1ML VIAL SQ SCH (21:17)
[2023-02-12] MEDS: INSULIN SLIDING SCALE (NOVOLOG) 1 VIAL SQ SCH ×3 (06:07→17:32)
[2023-02-12] MEDS ORDERED: INSULIN (LEVEMIR) 100 UNITS/ML UNITS SQ SCH (07:00)
[2023-02-12] MEDS: POLYETHYLENE GLYCOL (HEALTHYLAX) 3350 17 GM PACKET PO SCH (09:52)
[2023-02-12] MEDS: LABETALOL HCL 100 MG TABLET (FP) PO SCH (09:52)
[2023-02-12] MEDS: LISINOPRIL 20 MG TABLET PO SCH (09:52)
[2023-02-12] MEDS: GABAPENTIN 300 MG CAPSULE PO SCH (09:52)
[2023-02-12] MEDS: NIFEdipine E.R 60 MG TABLET PO SCH (09:52)
[2023-02-12] MEDS: SODIUM CHLORIDE 1,000 ML IV SCH ×3 (09:58→11:45)
[2023-02-12] MEDS: HEPARIN NA (PORCINE) 5,000 UNITS/ML 1ML VIAL SQ SCH (09:58)
[2023-02-12 14:12] VITALS: BP 116/71; PULSE 82; TEMP 98.7
== END 2023-02-12 18:33 | disposition home or self-care (01) ==
LOC: JER 09:41 → JERBED 16:20 → J6S 19:42
PROVIDERS: ADMIT Internal Medicine; ATTEND Internal Medicine
PROC: 3E033GC Introduction of Other Therapeutic Substance into Peripheral Vein, Percutaneous Approach (ICD-10-PCS; principal; 2023-02-10)
PROC: 3E023GC Introduction of Other Therapeutic Substance into Muscle, Percutaneous Approach (ICD-10-PCS; 2023-02-10)
PROC: 3E0337Z Introduction of Electrolytic and Water Balance Substance into Peripheral Vein, Percutaneous Approach (ICD-10-PCS; 2023-02-10)
DX: R41.82 Altered mental status, unspecified (principal); E11.649 Type 2 diabetes mellitus with hypoglycemia without coma; E86.0 Dehydration; R23.8 Other skin changes; R31.9 Hematuria, unspecified; Z86.73 Personal history of transient ischemic attack (TIA), and cerebral infarction without residual deficits; R55 Syncope and collapse; Z91.011 Allergy to milk products
CPT/HCPCS: 36415; 70450-TC; 70496-TC; 70498-TC; 71045-TC-FY; 80053; 80061; 82550; 82962; 83036; 84484; 85025; 85610; 85730; 86850; 86900; 86901; 93005; 93010; 96365; 96372; 96375; 97116-GP; 97161-GP; 99285-25; G0378; J1644

== ENCOUNTER 2023-10-10 00:53 | Inpatient (IN) | payer OTHER, BC ==
[2023-10-10 01:54] LABS: INR 0.99 (0.83-1.09); PROTHROMBIN TIME (PATIENT) 11.5 SEC (9.7-13.0)
[2023-10-10 01:57] LABS: ACTIVATED PTT 29.2 SECONDS (25.2-36.5)
[2023-10-10 02:01] LABS: BASO % 1.2 % (0-2.0); EOS % 1.6 % (0-4.5); HEMATOCRIT 34.9 % (35.4-49); HEMOGLOBIN 11.6 GM/dL (11.7-16.9); LYMPH % 20.8 % (8-40); MCH 28.7 pg (25.7-33.7); MCHC 33.4 g/dl (32.0-35.9); MEAN CELL VOLUME 85.8 fl (80-96); MEAN PLT VOLUME 8.9 fl (7.5-11.1); MONO % 11.7 % (3.8-10.2); NEUT % 64.7 % (42.8-82.8); PLATELET COUNT 255 10^3/uL (134-434); RBC 4.06 M/mm3 (4.00-5.60); RDW 12.9 % (11.9-15.9); WHITE BLOOD COUNT 5.2 K/mm3 (4.0-10.0)
[2023-10-10 02:38] LABS: ALK PHOS 129 U/L (45-117); ANION GAP 10 mmol/L (4-13); BILIRUBIN,TOTAL 0.6 mg/dL (0.2-1); BLOOD UREA NITROGEN 34.4 mg/dL (7-18); CALCIUM 8.3 mg/dL (8.5-10.1); CHLORIDE 94 mmol/L (98-107); CO2 26 mmol/L (21-32); CREATININE 2.3 mg/dL (0.55-1.3); GLUCOSE,RANDOM 593 mg/dL (74-106); POTASSIUM 4.7 mmol/L (3.5-5.1); SGOT/AST 18 U/L (15-37); SGPT/ALT 18 U/L (13-61); SODIUM 130 mmol/L (136-145); TOT PROT 6.3 g/dl (6.4-8.2)
[2023-10-10] MEDS ORDERED: SODIUM CHLORIDE 0.9% 500 ML INFUS.BAG IV ONE ×2 (02:45→03:27)
[2023-10-10] MEDS ORDERED: INSULIN (NOVOLOG MIX 70/30) 100 UNITS/ML MDV SQ ONE ×2 (02:45→02:50)
[2023-10-10] MEDS ORDERED: INSULIN REGULAR HUMAN 100 UNITS/ML *VIAL IVPUSH ONE (03:28)
[2023-10-10] MEDS ORDERED: INSULIN REGULAR HUMAN 100 UNITS/ML *VIAL ONE (03:33)
[2023-10-10] MEDS ORDERED: DOCUSATE SODIUM 100 MG CAPSULE (FP) PO PRN (04:44)
[2023-10-10] MEDS ORDERED: ACETAMINOPHEN 325 MG TABLET (FP) PO PRN (04:44)
[2023-10-10] MEDS ORDERED: SODIUM CHLORIDE 500 ML IV STA (04:47)
[2023-10-10] MEDS ORDERED: SODIUM CHLORIDE 0.45% 1,000 ML IV SCH (05:00)
[2023-10-10] MEDS: INSULIN SLIDING SCALE (NOVOLOG) 1 VIAL SQ SCH ×5 (06:12→23:19)
[2023-10-10 08:29] LABS: HEMATOCRIT 30.3 % (35.4-49); HEMOGLOBIN 9.9 GM/dL (11.7-16.9); MCH 28.5 pg (25.7-33.7); MCHC 32.6 g/dl (32.0-35.9); MEAN CELL VOLUME 87.3 fl (80-96); MEAN PLT VOLUME 8.7 fl (7.5-11.1); PLATELET COUNT 213 10^3/uL (134-434); RBC 3.47 M/mm3 (4.00-5.60); RDW 12.4 % (11.9-15.9); WHITE BLOOD COUNT 5.7 K/mm3 (4.0-10.0)
[2023-10-10 08:42] LABS: CALCIUM 7.7 mg/dL (8.5-10.1)
[2023-10-10 08:43] LABS: BLOOD UREA NITROGEN 33.4 mg/dL (7-18); MAGNESIUM 1.9 mg/dL (1.8-2.4)
[2023-10-10 08:46] LABS: CREATININE 1.7 mg/dL (0.55-1.3); PHOSPHOROUS 2.7 mg/dL (2.5-4.9)
[2023-10-10] MEDS ORDERED: POLYETHYLENE GLYCOL (HEALTHYLAX) 3350 17 GM PACKET PO SCH (10:00)
[2023-10-10] MEDS ORDERED: PANTOPRAZOLE 40 MG TABLET PO SCH (10:00)
[2023-10-10] MEDS ORDERED: INSULIN (NOVOLOG) ASPART 100 UNITS/ML 10ML VIAL ONE (10:44)
[2023-10-10] MEDS ORDERED: CEFTRIAXONE 1,000 MG in DEXTROSE 5%-WATER - 50 ML IVPB SCH (11:30)
[2023-10-10] MEDS: CEFTRIAXONE 1 GM in DEXTROSE 5%-WATER - 50 ML IVPB SCH (13:53)
[2023-10-10 17:33] LABS: BASO % 0.7 % (0-2.0); EOS % 0.5 % (0-4.5); HEMOGLOBIN 8.3 GM/dL (11.7-16.9); LYMPH % 15.6 % (8-40); MCH 28.5 pg (25.7-33.7); MCHC 33.4 g/dl (32.0-35.9); MEAN CELL VOLUME 85.4 fl (80-96); MONO % 6.8 % (3.8-10.2); NEUT % 76.4 % (42.8-82.8); PLATELET COUNT 203 10^3/uL (134-434); RBC 2.92 M/mm3 (4.00-5.60); WHITE BLOOD COUNT 6.8 K/mm3 (4.0-10.0)
[2023-10-10] MEDS ORDERED: SODIUM CHLORIDE 1,000 ML IV SCH (18:15)
[2023-10-10] MEDS ORDERED: PANTOPRAZOLE SODIUM 40 MG in SODIUM CHLORIDE 100 ML IVPB SCH (18:45)
[2023-10-10] MEDS ORDERED: PANTOPRAZOLE SODIUM 40 MG VIAL IVPUSH ONE (18:59)
[2023-10-10] MEDS: SODIUM CHLORIDE 1,000 ML IV SCH (19:03)
[2023-10-10 19:52] LABS: BASO % 1.3 % (0-2.0); EOS % 0.7 % (0-4.5); HEMATOCRIT 23.5 % (35.4-49); HEMOGLOBIN 7.9 GM/dL (11.7-16.9); LYMPH % 15.3 % (8-40); MCH 28.7 pg (25.7-33.7); MCHC 33.5 g/dl (32.0-35.9); MEAN CELL VOLUME 85.6 fl (80-96); MEAN PLT VOLUME 8.5 fl (7.5-11.1); NEUT % 74.7 % (42.8-82.8); PLATELET COUNT 220 10^3/uL (134-434); RBC 2.74 M/mm3 (4.00-5.60); WHITE BLOOD COUNT 7.1 K/mm3 (4.0-10.0)
[2023-10-10 20:00] LABS: INR 1.1 (0.83-1.09); PROTHROMBIN TIME (PATIENT) 12.7 SEC (9.7-13.0)
[2023-10-10 20:30] LABS: POTASSIUM 4.3 mmol/L (3.5-5.1)
[2023-10-10 20:32] LABS: CALCIUM 7.3 mg/dL (8.5-10.1)
[2023-10-10 20:33] LABS: BLOOD UREA NITROGEN 36.4 mg/dL (7-18)
[2023-10-10 20:36] LABS: CREATININE 1.5 mg/dL (0.55-1.3)
[2023-10-10 20:37] LABS: BILIRUBIN,TOTAL 0.3 mg/dL (0.2-1); TOT PROT 4.7 g/dl (6.4-8.2)
[2023-10-10 20:47] LABS: ALBUMIN 2.4 g/dl (3.4-5.0)
[2023-10-10] MEDS: traZODone HCL 50 MG TABLET (FP) PO SCH (22:58)
[2023-10-10] MEDS: ROSUVASTATIN CA 20 MG TABLET PO SCH (22:58)
[2023-10-10] MEDS: risperiDONE 1 MG TABLET PO SCH (22:59)
[2023-10-11] MEDS: INSULIN SLIDING SCALE (NOVOLOG) 1 VIAL SQ SCH ×6 (02:45→22:31)
[2023-10-11 03:13] LABS: HEMATOCRIT 20.4 % (35.4-49); MCH 29.3 pg (25.7-33.7); MCHC 33.8 g/dl (32.0-35.9); MEAN CELL VOLUME 86.5 fl (80-96); MEAN PLT VOLUME 8.9 fl (7.5-11.1); PLATELET COUNT 219 10^3/uL (134-434); RBC 2.36 M/mm3 (4.00-5.60); WHITE BLOOD COUNT 10.9 K/mm3 (4.0-10.0)
[2023-10-11 03:17] LABS: HEMOGLOBIN 6.9 GM/dL (11.7-16.9)
[2023-10-11 05:23] LABS: BASO % 0.4 % (0-2.0); HEMATOCRIT 21.9 % (35.4-49); HEMOGLOBIN 7.1 GM/dL (11.7-16.9); LYMPH % 5.6 % (8-40); MCH 27.8 pg (25.7-33.7); MCHC 32.6 g/dl (32.0-35.9); MEAN CELL VOLUME 85.4 fl (80-96); MEAN PLT VOLUME 8.1 fl (7.5-11.1); MONO % 6.9 % (3.8-10.2); NEUT % 87.1 % (42.8-82.8); PLATELET COUNT 184 10^3/uL (134-434); RBC 2.56 M/mm3 (4.00-5.60); RDW 15.2 % (11.9-15.9); WHITE BLOOD COUNT 10.5 K/mm3 (4.0-10.0)
[2023-10-11 05:29] LABS: INR 1.24 (0.83-1.09); PROTHROMBIN TIME (PATIENT) 14.3 SEC (9.7-13.0)
[2023-10-11] MEDS ORDERED: MAGNESIUM CITRATE 300 ML BOTTLE PO ONE ×2 (05:30→06:32)
[2023-10-11 05:37] LABS: CHLORIDE 107 mmol/L (98-107); SODIUM 137 mmol/L (136-145)
[2023-10-11 05:39] LABS: ANION GAP 10 mmol/L (4-13); BLOOD UREA NITROGEN 45.3 mg/dL (7-18); CO2 21 mmol/L (21-32)
[2023-10-11 05:42] LABS: CREATININE 1.6 mg/dL (0.55-1.3)
[2023-10-11 06:15] LABS: GLUCOSE,RANDOM 477 mg/dL (74-106)
[2023-10-11] MEDS ORDERED: INSULIN REGULAR HUMAN 100 UNITS/ML *VIAL IVPUSH ONE ×2 (06:38→08:45)
[2023-10-11] MEDS: CEFTRIAXONE 1 GM in DEXTROSE 5%-WATER - 50 ML IVPB SCH (07:28)
[2023-10-11] MEDS ORDERED: INSULIN REGULAR 100 UNITS in SODIUM CHLORIDE 99 ML IVPB SCH ×2 (07:30→08:32)
[2023-10-11] MEDS ORDERED: PANTOPRAZOLE SODIUM 40 MG VIAL IVPUSH ONE (07:47)
[2023-10-11] MEDS ORDERED: PANTOPRAZOLE SODIUM 160 MG in SODIUM CHLORIDE 290 ML IVPB SCH (08:00)
[2023-10-11] MEDS ORDERED: SODIUM CHLORIDE 500 ML IV STA ×2 (08:31→08:35)
[2023-10-11] MEDS ORDERED: INSULIN REGULAR HUMAN 100 UNITS/ML *VIAL ONE (08:34)
[2023-10-11] MEDS ORDERED: EPINEPHrine 1:10,000 (P-F SYR) 1 MG/10 ML DISP.SYRIN ONE (09:41)
[2023-10-11] MEDS ORDERED: ONDANSETRON 4 MG/2 ML VIAL IVPUSH PRN (10:37)
[2023-10-11 15:47] LABS: HEMATOCRIT 28.7 % (35.4-49); HEMOGLOBIN 9.6 GM/dL (11.7-16.9); MCH 26.9 pg (25.7-33.7); MCHC 33.5 g/dl (32.0-35.9); MEAN CELL VOLUME 80.2 fl (80-96); MEAN PLT VOLUME 7.9 fl (7.5-11.1); PLATELET COUNT 153 10^3/uL (134-434); RBC 3.58 M/mm3 (4.00-5.60); RDW 21.3 % (11.9-15.9); WHITE BLOOD COUNT 12.7 K/mm3 (4.0-10.0)
[2023-10-11] MEDS: INSULIN (LEVEMIR) 100 UNITS/ML UNITS SQ SCH (16:08)
[2023-10-11] MEDS: SODIUM CHLORIDE 1,000 ML IV SCH (19:47)
[2023-10-11] MEDS ORDERED: INSULIN (NOVOLOG) ASPART 100 UNITS/ML 10ML VIAL SQ ONE (20:19)
[2023-10-11] MEDS: risperiDONE 1 MG TABLET PO SCH (22:21)
[2023-10-11] MEDS: PANTOPRAZOLE SODIUM 40 MG VIAL IVPUSH SCH (22:21)
[2023-10-11] MEDS: ROSUVASTATIN CA 20 MG TABLET PO SCH (22:21)
[2023-10-11] MEDS: traZODone HCL 50 MG TABLET (FP) PO SCH (22:21)
[2023-10-12] MEDS: INSULIN SLIDING SCALE (NOVOLOG) 1 VIAL SQ SCH ×4 (06:06→21:38)
[2023-10-12 07:21] LABS: HEMATOCRIT 23.2 % (35.4-49); HEMOGLOBIN 7.8 GM/dL (11.7-16.9); MCH 27.2 pg (25.7-33.7); MCHC 33.4 g/dl (32.0-35.9); MEAN CELL VOLUME 81.3 fl (80-96); MEAN PLT VOLUME 8.1 fl (7.5-11.1); PLATELET COUNT 148 10^3/uL (134-434); RBC 2.85 M/mm3 (4.00-5.60); RDW 20.9 % (11.9-15.9); WHITE BLOOD COUNT 10.3 K/mm3 (4.0-10.0)
[2023-10-12 07:30] LABS: POTASSIUM 3.9 mmol/L (3.5-5.1)
[2023-10-12 07:36] LABS: ALBUMIN 2.1 g/dl (3.4-5.0); CALCIUM 7.1 mg/dL (8.5-10.1)
[2023-10-12 07:41] LABS: BILIRUBIN,TOTAL 0.6 mg/dL (0.2-1); TOT PROT 3.6 g/dl (6.4-8.2)
[2023-10-12] MEDS: CEFTRIAXONE 1 GM in DEXTROSE 5%-WATER - 50 ML IVPB SCH (08:36)
[2023-10-12] MEDS: PANTOPRAZOLE SODIUM 40 MG VIAL IVPUSH SCH ×2 (09:36→21:20)
[2023-10-12] MEDS: INSULIN (LEVEMIR) 100 UNITS/ML UNITS SQ SCH (09:51)
[2023-10-12] MEDS: SODIUM CHLORIDE 1,000 ML IV SCH (14:01)
[2023-10-12 18:55] LABS: HEMATOCRIT 22.8 % (35.4-49); HEMOGLOBIN 7.8 GM/dL (11.7-16.9); MCH 27.6 pg (25.7-33.7); MCHC 34.2 g/dl (32.0-35.9); MEAN CELL VOLUME 80.6 fl (80-96); MEAN PLT VOLUME 7.6 fl (7.5-11.1); PLATELET COUNT 145 10^3/uL (134-434); RBC 2.83 M/mm3 (4.00-5.60); RDW 21.5 % (11.9-15.9); WHITE BLOOD COUNT 10.9 K/mm3 (4.0-10.0)
[2023-10-12] MEDS ORDERED: DOCUSATE SODIUM 100 MG CAPSULE (FP) PO PRN (19:10)
[2023-10-12] MEDS ORDERED: SODIUM CHLORIDE 1,000 ML IV SCH (19:10)
[2023-10-12] MEDS ORDERED: ACETAMINOPHEN 325 MG TABLET (FP) PO PRN (19:10)
[2023-10-12] MEDS: risperiDONE 1 MG TABLET PO SCH (21:20)
[2023-10-12] MEDS: traZODone HCL 50 MG TABLET (FP) PO SCH (21:20)
[2023-10-12] MEDS: ROSUVASTATIN CA 20 MG TABLET PO SCH (21:20)
[2023-10-13] MEDS: INSULIN (LEVEMIR) 100 UNITS/ML UNITS SQ SCH (06:27)
[2023-10-13] MEDS: INSULIN SLIDING SCALE (NOVOLOG) 1 VIAL SQ SCH ×4 (06:27→21:38)
[2023-10-13] MEDS ORDERED: SODIUM CHLORIDE 1,000 ML IV STA ×2 (06:37→07:30)
[2023-10-13] MEDS: CEFTRIAXONE 1 GM in DEXTROSE 5%-WATER - 50 ML IVPB SCH (09:24)
[2023-10-13] MEDS: PANTOPRAZOLE SODIUM 40 MG VIAL IVPUSH SCH ×2 (09:24→21:38)
[2023-10-13 09:30] LABS: HEMATOCRIT 12.6 % (35.4-49); HEMOGLOBIN 4.2 GM/dL (11.7-16.9); MCHC 33.4 g/dl (32.0-35.9); MEAN CELL VOLUME 83.7 fl (80-96); PLATELET COUNT 115 10^3/uL (134-434); RBC 1.51 M/mm3 (4.00-5.60); RDW 20.3 % (11.9-15.9); WHITE BLOOD COUNT 7.8 K/mm3 (4.0-10.0)
[2023-10-13] MEDS ORDERED: MAGNESIUM CITRATE 300 ML BOTTLE PO ONE (09:30)
[2023-10-13 09:39] LABS: CHLORIDE 117 mmol/L (98-107); POTASSIUM 3.8 mmol/L (3.5-5.1); SODIUM 142 mmol/L (136-145)
[2023-10-13 09:43] LABS: ANION GAP 5 mmol/L (4-13); BLOOD UREA NITROGEN 40.7 mg/dL (7-18); CO2 19 mmol/L (21-32); GLUCOSE,RANDOM 229 mg/dL (74-106)
[2023-10-13 09:46] LABS: CREATININE 1.6 mg/dL (0.55-1.3); SGOT/AST 10 U/L (15-37); SGPT/ALT 6 U/L (13-61)
[2023-10-13 09:47] LABS: BILIRUBIN,TOTAL 0.5 mg/dL (0.2-1); TOT PROT 2.9 g/dl (6.4-8.2)
[2023-10-13 09:49] LABS: ALK PHOS 30 U/L (45-117)
[2023-10-13 10:00] LABS: ALBUMIN 1.5 g/dl (3.4-5.0); CALCIUM 6.4 mg/dL (8.5-10.1)
[2023-10-13] MEDS: DEXTROSE 5%-NORMAL SALINE 1,000 ML IV SCH (10:16)
[2023-10-13] MEDS ORDERED: ACETAMINOPHEN 1000 MG/100 ML BAG IVPB PRN (12:07)
[2023-10-13] MEDS ORDERED: MINERAL OIL ENEMA 133 ML ENEMA RC ONE ×2 (13:00→13:05)
[2023-10-13] MEDS ORDERED: CALCIUM GLUC IN NACL, ISO-OSM 1 GM/50 ML BAG IVPB ONE (13:38)
[2023-10-13] MEDS: ROSUVASTATIN CA 20 MG TABLET PO SCH (21:37)
[2023-10-13] MEDS: traZODone HCL 50 MG TABLET (FP) PO SCH (21:37)
[2023-10-13] MEDS ORDERED: INSULIN (NOVOLOG) ASPART 100 UNITS/ML 10ML VIAL ONE (21:38)
[2023-10-13 22:46] LABS: BASO % 0.3 % (0-2.0); EOS % 0.8 % (0-4.5); HEMATOCRIT 26.1 % (35.4-49); HEMOGLOBIN 8.9 GM/dL (11.7-16.9); LYMPH % 6.1 % (8-40); MCH 28.8 pg (25.7-33.7); MEAN CELL VOLUME 84.8 fl (80-96); MEAN PLT VOLUME 7.9 fl (7.5-11.1); MONO % 11.5 % (3.8-10.2); NEUT % 81.3 % (42.8-82.8); PLATELET COUNT 157 10^3/uL (134-434); RBC 3.08 M/mm3 (4.00-5.60); RDW 15.7 % (11.9-15.9); WHITE BLOOD COUNT 10.1 K/mm3 (4.0-10.0)
[2023-10-13] MEDS: risperiDONE 1 MG TABLET PO SCH (23:29)
[2023-10-14] MEDS: DEXTROSE 5%-NORMAL SALINE 1,000 ML IV SCH (01:10)
[2023-10-14] MEDS: INSULIN SLIDING SCALE (NOVOLOG) 1 VIAL SQ SCH ×4 (06:18→22:14)
[2023-10-14] MEDS: INSULIN (LEVEMIR) 100 UNITS/ML UNITS SQ SCH (06:18)
[2023-10-14 06:21] LABS: BASO % 1.1 % (0-2.0); EOS % 2.4 % (0-4.5); HEMATOCRIT 23.2 % (35.4-49); HEMOGLOBIN 7.9 GM/dL (11.7-16.9); LYMPH % 7.7 % (8-40); MCH 29.1 pg (25.7-33.7); MCHC 34.2 g/dl (32.0-35.9); MEAN CELL VOLUME 84.9 fl (80-96); MEAN PLT VOLUME 8.2 fl (7.5-11.1); MONO % 14.4 % (3.8-10.2); NEUT % 74.4 % (42.8-82.8); PLATELET COUNT 119 10^3/uL (134-434); RBC 2.73 M/mm3 (4.00-5.60); RDW 15.8 % (11.9-15.9); WHITE BLOOD COUNT 9.3 K/mm3 (4.0-10.0)
[2023-10-14 06:43] LABS: CHLORIDE 119 mmol/L (98-107); POTASSIUM 3.5 mmol/L (3.5-5.1); SODIUM 144 mmol/L (136-145)
[2023-10-14 06:47] LABS: BLOOD UREA NITROGEN 29.7 mg/dL (7-18)
[2023-10-14 06:48] LABS: ANION GAP 5 mmol/L (4-13); CO2 21 mmol/L (21-32); GLUCOSE,RANDOM 217 mg/dL (74-106); MAGNESIUM 2.2 mg/dL (1.8-2.4)
[2023-10-14 06:50] LABS: SGOT/AST 11 U/L (15-37); SGPT/ALT 9 U/L (13-61)
[2023-10-14 06:51] LABS: CREATININE 1.4 mg/dL (0.55-1.3); PHOSPHOROUS 2.7 mg/dL (2.5-4.9)
[2023-10-14 06:52] LABS: BILIRUBIN,TOTAL 0.7 mg/dL (0.2-1); TOT PROT 3.6 g/dl (6.4-8.2)
[2023-10-14 06:53] LABS: ALK PHOS 40 U/L (45-117)
[2023-10-14 07:15] LABS: ALBUMIN 1.9 g/dl (3.4-5.0); CALCIUM 6.8 mg/dL (8.5-10.1)
[2023-10-14] MEDS: LACTATED RINGERS SOLUTION 1,000 ML/1,000 ML INFUS.BAG IV SCH (08:47)
[2023-10-14] MEDS: CEFTRIAXONE 1 GM in DEXTROSE 5%-WATER - 50 ML IVPB SCH (08:47)
[2023-10-14] MEDS: PANTOPRAZOLE SODIUM 40 MG VIAL IVPUSH SCH ×2 (10:02→21:50)
[2023-10-14] MEDS ORDERED: INSULIN (NOVOLOG) ASPART 100 UNITS/ML 10ML VIAL ONE ×2 (10:10→22:13)
[2023-10-14 15:42] LABS: HEMOGLOBIN 7.9 GM/dL (11.7-16.9); MCH 29.1 pg (25.7-33.7); MCHC 34.1 g/dl (32.0-35.9); MEAN CELL VOLUME 85.1 fl (80-96); MEAN PLT VOLUME 7.3 fl (7.5-11.1); PLATELET COUNT 168 10^3/uL (134-434); RBC 2.71 M/mm3 (4.00-5.60); RDW 16.4 % (11.9-15.9); WHITE BLOOD COUNT 8.8 K/mm3 (4.0-10.0)
[2023-10-14] MEDS: traZODone HCL 50 MG TABLET (FP) PO SCH (21:50)
[2023-10-14] MEDS: ROSUVASTATIN CA 20 MG TABLET PO SCH (21:50)
[2023-10-14] MEDS: risperiDONE 1 MG TABLET PO SCH (21:50)
[2023-10-15] MEDS: LACTATED RINGERS SOLUTION 1,000 ML/1,000 ML INFUS.BAG IV SCH ×2 (00:20→14:56)
[2023-10-15] MEDS: INSULIN SLIDING SCALE (NOVOLOG) 1 VIAL SQ SCH ×4 (06:16→22:02)
[2023-10-15] MEDS: INSULIN (LEVEMIR) 100 UNITS/ML UNITS SQ SCH (06:17)
[2023-10-15 06:29] LABS: EOS % 3.7 % (0-4.5); HEMOGLOBIN 7.9 GM/dL (11.7-16.9)
[2023-10-15 06:32] LABS: BASO % 0.7 % (0-2.0); HEMATOCRIT 23.4 % (35.4-49); LYMPH % 8.9 % (8-40); MCH 29.1 pg (25.7-33.7); MCHC 33.8 g/dl (32.0-35.9); MEAN PLT VOLUME 7.6 fl (7.5-11.1); MONO % 13.8 % (3.8-10.2); NEUT % 72.9 % (42.8-82.8); PLATELET COUNT 202 10^3/uL (134-434); RBC 2.72 M/mm3 (4.00-5.60); RDW 16.2 % (11.9-15.9); WHITE BLOOD COUNT 8.2 K/mm3 (4.0-10.0)
[2023-10-15 06:44] LABS: CHLORIDE 114 mmol/L (98-107); POTASSIUM 3.4 mmol/L (3.5-5.1); SODIUM 143 mmol/L (136-145)
[2023-10-15] MEDS ORDERED: POTASSIUM CHLORIDE TABS 20 MEQ TABLET.ER (FP) PO ONE (06:44)
[2023-10-15 06:47] LABS: ALBUMIN 2.1 g/dl (3.4-5.0); ANION GAP 7 mmol/L (4-13); BLOOD UREA NITROGEN 14.4 mg/dL (7-18); CO2 22 mmol/L (21-32); GLUCOSE,RANDOM 223 mg/dL (74-106)
[2023-10-15 06:48] LABS: MAGNESIUM 1.8 mg/dL (1.8-2.4)
[2023-10-15 06:50] LABS: CREATININE 1.1 mg/dL (0.55-1.3); PHOSPHOROUS 2.2 mg/dL (2.5-4.9); SGOT/AST 20 U/L (15-37); SGPT/ALT 11 U/L (13-61)
[2023-10-15 06:52] LABS: BILIRUBIN,TOTAL 0.6 mg/dL (0.2-1); TOT PROT 3.9 g/dl (6.4-8.2)
[2023-10-15 06:53] LABS: ALK PHOS 46 U/L (45-117)
[2023-10-15 06:59] LABS: CALCIUM 6.8 mg/dL (8.5-10.1)
[2023-10-15] MEDS ORDERED: INSULIN (LEVEMIR) 100 UNITS/ML UNITS SQ SCH (07:57)
[2023-10-15] MEDS ORDERED: CALCIUM GLUCONATE 10% - 1,000 MG/10 ML VIAL IVPB ONE (07:59)
[2023-10-15] MEDS ORDERED: traZODone HCL 50 MG TABLET (FP) PO SCH ×2 (08:15→22:00)
[2023-10-15] MEDS: CEFTRIAXONE 1 GM in DEXTROSE 5%-WATER - 50 ML IVPB SCH (08:51)
[2023-10-15] MEDS: PANTOPRAZOLE SODIUM 40 MG VIAL IVPUSH SCH ×2 (09:07→21:53)
[2023-10-15] MEDS ORDERED: NIFEdipine E.R 60 MG TABLET PO SCH (10:00)
[2023-10-15] MEDS ORDERED: PATIENT'S OWN MEDICATION (NON-FORMULARY) (Dapagliflozin Propanediol 10 MG Tablet) PO SCH (10:00)
[2023-10-15] MEDS ORDERED: POLYETHYLENE GLYCOL (HEALTHYLAX) 3350 17 GM PACKET PO SCH (10:30)
[2023-10-15 11:21] LABS: HEMATOCRIT 22.6 % (35.4-49); HEMOGLOBIN 7.7 GM/dL (11.7-16.9); MCH 29.2 pg (25.7-33.7); MEAN CELL VOLUME 85.9 fl (80-96); MEAN PLT VOLUME 7.5 fl (7.5-11.1); PLATELET COUNT 201 10^3/uL (134-434); RBC 2.63 M/mm3 (4.00-5.60); RDW 16.3 % (11.9-15.9)
[2023-10-15] MEDS: ROSUVASTATIN CA 20 MG TABLET PO SCH (21:54)
[2023-10-15] MEDS ORDERED: DONEPEZIL HCL 10 MG TABLET (FP) PO SCH (22:00)
[2023-10-15] MEDS: risperiDONE 1 MG TABLET PO SCH (22:05)
[2023-10-16] MEDS: LACTATED RINGERS SOLUTION 1,000 ML/1,000 ML INFUS.BAG IV SCH ×3 (02:32→17:58)
[2023-10-16] MEDS: INSULIN SLIDING SCALE (NOVOLOG) 1 VIAL SQ SCH ×4 (06:58→21:56)
[2023-10-16] MEDS ORDERED: ACETAMINOPHEN 325 MG TABLET (FP) PO PRN (07:49)
[2023-10-16] MEDS ORDERED: DOCUSATE SODIUM 100 MG CAPSULE (FP) PO PRN (07:49)
[2023-10-16] MEDS ORDERED: CEFTRIAXONE 1 GM in DEXTROSE 5%-WATER - 50 ML IVPB SCH (08:30)
[2023-10-16] MEDS: PANTOPRAZOLE SODIUM 40 MG VIAL IVPUSH SCH ×2 (09:23→21:57)
[2023-10-16] MEDS: NIFEdipine E.R 60 MG TABLET PO SCH (09:24)
[2023-10-16] MEDS: POLYETHYLENE GLYCOL (HEALTHYLAX) 3350 17 GM PACKET PO SCH (09:24)
[2023-10-16] MEDS ORDERED: PATIENT'S OWN MEDICATION (NON-FORMULARY) (Dapagliflozin Propanediol 10 MG) PO SCH (10:00)
[2023-10-16] MEDS ORDERED: INSULIN (NOVOLOG) ASPART 100 UNITS/ML 10ML VIAL ONE (11:09)
[2023-10-16 12:15] LABS: HEMATOCRIT 22.6 % (35.4-49); HEMOGLOBIN 7.6 GM/dL (11.7-16.9); MCH 29.1 pg (25.7-33.7); MCHC 33.6 g/dl (32.0-35.9); MEAN CELL VOLUME 86.7 fl (80-96); MEAN PLT VOLUME 7.5 fl (7.5-11.1); PLATELET COUNT 217 10^3/uL (134-434); RBC 2.61 M/mm3 (4.00-5.60); RDW 16.7 % (11.9-15.9)
[2023-10-16] MEDS ORDERED: IRON SUCROSE INJECTION 200 MG in SODIUM CHLORIDE 90 ML IVPB ONE (13:00)
[2023-10-16] MEDS: ROSUVASTATIN CA 20 MG TABLET PO SCH (21:54)
[2023-10-16] MEDS: DONEPEZIL HCL 10 MG TABLET (FP) PO SCH (21:54)
[2023-10-16] MEDS: traZODone HCL 50 MG TABLET (FP) PO SCH (21:54)
[2023-10-16] MEDS: risperiDONE 1 MG TABLET PO SCH (21:54)
[2023-10-17] MEDS: INSULIN (LEVEMIR) 100 UNITS/ML UNITS SQ SCH (06:07)
[2023-10-17] MEDS: INSULIN SLIDING SCALE (NOVOLOG) 1 VIAL SQ SCH ×4 (06:08→22:26)
[2023-10-17] MEDS: NIFEdipine E.R 60 MG TABLET PO SCH (09:34)
[2023-10-17] MEDS: ASCORBIC ACID 500 MG TABLET (FP) PO SCH (09:34)
[2023-10-17] MEDS: FOLIC ACID 1 MG TABLET (FP) PO SCH (09:34)
[2023-10-17] MEDS: PANTOPRAZOLE SODIUM 40 MG VIAL IVPUSH SCH ×2 (09:34→22:17)
[2023-10-17] MEDS: FERROUS SO4 325 MG TABLET (FP) PO SCH ×3 (09:34→16:30)
[2023-10-17] MEDS: LACTATED RINGERS SOLUTION 1,000 ML/1,000 ML INFUS.BAG IV SCH (09:35)
[2023-10-17] MEDS: POLYETHYLENE GLYCOL (HEALTHYLAX) 3350 17 GM PACKET PO SCH (09:40)
[2023-10-17 09:46] LABS: BASO % 0.6 % (0-2.0); EOS % 2.8 % (0-4.5); HEMATOCRIT 22.1 % (35.4-49); HEMOGLOBIN 7.6 GM/dL (11.7-16.9); LYMPH % 8.3 % (8-40); MCH 29.7 pg (25.7-33.7); MCHC 34.4 g/dl (32.0-35.9); MEAN CELL VOLUME 86.1 fl (80-96); MEAN PLT VOLUME 7.3 fl (7.5-11.1); MONO % 14.9 % (3.8-10.2); NEUT % 73.4 % (42.8-82.8); PLATELET COUNT 252 10^3/uL (134-434); RBC 2.56 M/mm3 (4.00-5.60); RDW 16.7 % (11.9-15.9); WHITE BLOOD COUNT 10.7 K/mm3 (4.0-10.0)
[2023-10-17 10:09] LABS: POTASSIUM 3.1 mmol/L (3.5-5.1)
[2023-10-17 10:20] LABS: BLOOD UREA NITROGEN 10.1 mg/dL (7-18); CALCIUM 7.3 mg/dL (8.5-10.1)
[2023-10-17 10:23] LABS: CREATININE 1.1 mg/dL (0.55-1.3)
[2023-10-17 10:24] LABS: BILIRUBIN,TOTAL 0.5 mg/dL (0.2-1)
[2023-10-17] MEDS ORDERED: INSULIN (NOVOLOG) ASPART 100 UNITS/ML 10ML VIAL ONE (11:45)
[2023-10-17] MEDS ORDERED: POTASSIUM CHLORIDE ORAL LIQUID 20 MEQ/15 ML PO ONE (16:00)
[2023-10-17] MEDS: ROSUVASTATIN CA 20 MG TABLET PO SCH (22:15)
[2023-10-17] MEDS: risperiDONE 1 MG TABLET PO SCH (22:16)
[2023-10-17] MEDS: traZODone HCL 50 MG TABLET (FP) PO SCH (22:17)
[2023-10-17] MEDS: DONEPEZIL HCL 10 MG TABLET (FP) PO SCH (22:17)
[2023-10-17 23:31] VITALS: BMI 26.7
[2023-10-18 04:31] VITALS: RESP 18
[2023-10-18] MEDS: INSULIN (LEVEMIR) 100 UNITS/ML UNITS SQ SCH (06:15)
[2023-10-18] MEDS: INSULIN SLIDING SCALE (NOVOLOG) 1 VIAL SQ SCH ×2 (06:16→11:38)
[2023-10-18 08:52] LABS: BASO % 0.8 % (0-2.0); EOS % 2.7 % (0-4.5); HEMATOCRIT 22.2 % (35.4-49); HEMOGLOBIN 7.6 GM/dL (11.7-16.9); LYMPH % 10.1 % (8-40); MCHC 34.2 g/dl (32.0-35.9); MEAN CELL VOLUME 87.8 fl (80-96); MEAN PLT VOLUME 7.2 fl (7.5-11.1); MONO % 14.1 % (3.8-10.2); NEUT % 72.3 % (42.8-82.8); PLATELET COUNT 274 10^3/uL (134-434); RBC 2.53 M/mm3 (4.00-5.60); RDW 16.1 % (11.9-15.9); WHITE BLOOD COUNT 10.5 K/mm3 (4.0-10.0)
[2023-10-18] MEDS: FOLIC ACID 1 MG TABLET (FP) PO SCH (10:35)
[2023-10-18] MEDS: POLYETHYLENE GLYCOL (HEALTHYLAX) 3350 17 GM PACKET PO SCH (10:35)
[2023-10-18] MEDS: FERROUS SO4 325 MG TABLET (FP) PO SCH ×2 (10:35→14:31)
[2023-10-18] MEDS: PANTOPRAZOLE SODIUM 40 MG VIAL IVPUSH SCH (10:35)
[2023-10-18] MEDS: ASCORBIC ACID 500 MG TABLET (FP) PO SCH (10:35)
[2023-10-18] MEDS: NIFEdipine E.R 60 MG TABLET PO SCH (10:35)
[2023-10-18 14:19] VITALS: BP 117/63; PULSE 93; TEMP 99.4
== END 2023-10-18 17:00 | disposition home or self-care (01) | DRG 378 ==
LOC: JER 00:53 → JERBED 02:46 → J8W 05:35 → JICU 22:20 → J6S 10-12 18:59 → JICU 10-13 10:09 → J6S 10-15 18:46
PROVIDERS: ADMIT Internal Medicine; ATTEND Internal Medicine
PROC: 30233L1 Transfusion of Nonautologous Fresh Plasma into Peripheral Vein, Percutaneous Approach (ICD-10-PCS; 2023-10-10)
PROC: 30233N1 Transfusion of Nonautologous Red Blood Cells into Peripheral Vein, Percutaneous Approach (ICD-10-PCS; 2023-10-10)
PROC: 30233K1 Transfusion of Nonautologous Frozen Plasma into Peripheral Vein, Percutaneous Approach (ICD-10-PCS; 2023-10-10)
PROC: 0W3P8ZZ Control Bleeding in Gastrointestinal Tract, Via Natural or Artificial Opening Endoscopic (ICD-10-PCS; 2023-10-11)
PROC: 0DJ08ZZ Inspection of Upper Intestinal Tract, Via Natural or Artificial Opening Endoscopic (ICD-10-PCS; principal; 2023-10-11 09:00)
PROC: 0W3P8ZZ Control Bleeding in Gastrointestinal Tract, Via Natural or Artificial Opening Endoscopic (ICD-10-PCS; 2023-10-13)
DX: K57.31 Diverticulosis of large intestine without perforation or abscess with bleeding (principal); D62 Acute posthemorrhagic anemia; N17.9 Acute kidney failure, unspecified; E78.5 Hyperlipidemia, unspecified; E11.40 Type 2 diabetes mellitus with diabetic neuropathy, unspecified; E11.65 Type 2 diabetes mellitus with hyperglycemia; Z79.4 Long term (current) use of insulin; E86.0 Dehydration; Z86.73 Personal history of transient ischemic attack (TIA), and cerebral infarction without residual deficits; Z91.148 Patient's other noncompliance with medication regimen for other reason; D69.6 Thrombocytopenia, unspecified; I12.9 Hypertensive chronic kidney disease with stage 1 through stage 4 chronic kidney disease, or unspecified chronic kidney disease; E11.22 Type 2 diabetes mellitus with diabetic chronic kidney disease; N18.9 Chronic kidney disease, unspecified
CPT/HCPCS: 36415; 36430; 36511; 74176-TC; 80048; 80053; 82272; 82962; 83605; 83735; 84100; 85025; 85027; 85610; 85730; 86850; 86900; 86901; 86922; 87635; 93005; 93010; 94760; 97116-GP; 97161-GP; 99285-25; J1756; P9017; P9034; P9038; P9058